=== PATIENT | male | born 1975 ===

== ENCOUNTER 2017-10-07 14:44 | Inpatient (IN) | payer MEDICAID, OTHER ==
[2017-10-07] MEDS ORDERED: Sodium Chloride 0.9% 1,000 ML IV STA ×2 (15:11→18:36)
--- NOTE | 2017-10-07 15:30 | ED PDOC ---
HPI: General Adult Time Seen by Provider: 10/07/17 14:57 Chief Complaint (Nursing): Fever Chief Complaint (Provider): Open Wound History Per: Patient History/Exam Limitations: no limitations Onset/Duration Of Symptoms: Days (x1 week) Current Symptoms Are (Timing): Still Present Additional Complaint(s): With a past medical history of diabetes, who presents to the ED for evaluation of an open wound x1 week. Patient states the wound has been present on his left foot for 1 week. States he saw his Mechanic Welder Truck Driver about it sometime last week and developed a fever on Thursday. Reports today he developed intractable vomiting and has been unable to tolerate food and liquid. Also reports body aches, generalized fatigue, malaise, and loss of appetite. Denies abdominal pain or diarrhea. States he was advised by his Mechanic Welder Truck Driver to present to the ED for a possible severe wound infection. PMD: Dr. Gross Podatrist. Dr. White Past Medical History Reviewed: Historical Data, Nursing Documentation, Vital Signs Vital Signs: Last Vital Signs Temp 99.1 F 10/07/17 17:35 Pulse 119 H 10/07/17 17:35 Resp 21 10/07/17 17:35 BP 82/42 L 10/07/17 17:35 Pulse Ox 97 10/07/17 17:35 - Medical History PMH: Diabetes - Surgical History Other surgeries: Amputation of some toes on right foot - Family History Family History: States: Diabetes - Social History Current smoker - smoking cessation education provided: No Alcohol: Occasional - Home Medications Home Medications: Ambulatory Orders Medication Instructions Recorded Insulin Detemir [Levemir] 12 unit SC HS 10/07/17 MetFORMIN [glucoPHAGE] 1,000 mg PO BID 10/07/17 SITagliptin [Januvia] 100 mg PO DAILY 10/07/17 - Allergies Allergies/Adverse Reactions: Allergies Allergy/AdvReac Type Severity Reaction Status Date / Time No Known Allergies Allergy Verified 10/07/17 14:51 Review of Systems ROS Statement: Except As Marked, All Systems Reviewed And Found Negative Constitutional: Positive for: Fever, Chills, Weakness, Malaise, Other (body aches) Gastrointestinal: Positive for: Vomiting. Negative for: Abdominal Pain, Diarrhea Skin: Positive for: Lesions (left food open wound) Physical Exam - Reviewed Nursing Documentation Reviewed: Yes Vital Signs Reviewed: Yes - Physical Exam Appears: Positive for: Uncomfortable, In Acute Distress Head Exam: Positive for: ATRAUMATIC, NORMOCEPHALIC Skin: Positive for: Warm, Dry Eye Exam: Positive for: EOMI, PERRL ENT: Positive for: Pharynx Is (clear), Other (dry mucus membranes) Neck: Positive for: Painless ROM, Supple Cardiovascular/Chest: Positive for: Tachycardia. Negative for: Murmur Respiratory: Positive for: Normal Breath Sounds. Negative for: Respiratory Distress Gastrointestinal/Abdominal: Positive for: Soft. Negative for: Tenderness Back: Positive for: Normal Inspection. Negative for: Decreased ROM Extremity: Positive for: Other (LEFT foot open wound plantar forefoot yellow dry margin base not visible). Negative for: Deformity, Swelling Lymphatic: Negative for: Adenopathy Neurologic/Psych: Positive for: Alert. Negative for: Motor/Sensory Deficits - Laboratory Results Result Diagrams: 10/07/17 15:30 10/07/17 15:30 - ECG ECG: Positive for: Interpreted By Me ECG Rhythm: Positive for: Sinus Tachycardia O2 Sat by Pulse Oximetry: 99 (RA) Pulse Ox Interpretation: Normal Medical Decision Making Medical Decision Making: Time: 15:08 Initial Impression: Fever, vomiting, and diabetic wound infection. Differentials diagnoses include, but are not limited to sepsis, dehydration, electrolyte abnormality, pancreatitis, gastroenteritis Plan: --Blood type and screen --VBG shock panel --EKG --CMP --Lipase --Magnesium --Phosphorus --ED urine dipstick --CBC w/ differential --Erythrocyte sedimentation rate --PTT --PT --Chest X-Ray 1 view --Sodium Chloride 0.9% 1,000 mls/hr --Toradol 15 mg IVP --Tylenol 975 mg PO --Blood culture --Urine culture --Wound culture --IV Insertion --Glucose, blood, POC --Left foot X-Ray 3 views --Influenza A B --Reevaluation Time: 15:58 Left Foot X-Ray Findings: BONES: No interval acute fracture. Exuberant osseous productive change at the prior posterior superior avulsed calcaneal fracture is noted. Bordering the plantar forefoot level lucency compatible with an open wound here (estimated at the sesamoid level) no periosteal reaction or cortical destruction appreciated. Hammertoe like orientations noted. JOINTS: Normal. SOFT TISSUES: Arterial calcifications. Forefoot level plantar ulcer suggested OTHER FINDINGS: None. IMPRESSION: Plantar ulcer without radiographic osteomyelitis finding suggested Hypertrophic healing of prior posterior superior calcaneal fracture Time: 16:07 Chest X-Ray Findings: LUNGS: Clear. PLEURA: No pneumothorax or pleural fluid seen. CARDIOVASCULAR: Normal. OSSEOUS STRUCTURES: No significant abnormalities. VISUALIZED UPPER ABDOMEN: Normal. OTHER FINDINGS: None. IMPRESSION: No active disease. No acute/significant interval changes. Time: 16:50 Patient has no insurance and Dr. Price is no longer his PMD. Labs demonstrate sepsis without shock or severe sepsis, and DKA. Insulin drip and IV antibiotics ordered and case was discussed with Pay Per Click Strategist, Dr. Garsia, and Hospitalist, Dr. Healy. Discussed findings and plan of care with patient. Scribe Attestation: Documented by Pranay Adams acting as a scribe for Caryn Rosen MD. Scribe Attestation: All medical record entries made by the Scribe were at my direction and personally dictated by me. I have reviewed the chart and agree that the record accurately reflects my personal performance of the history, physical exam, medical decision making, and the department course for this patient. I have also personally directed, reviewed, and agree with the discharge instructions and disposition. Disposition - Patient ED Disposition Is Patient to be Admitted: Yes - Disposition Disposition Time: 16:50 - Pt Status Changed To: Hospital Disposition Of: Inpatient - Admit Certification Admit to Inpatient:: After my assessment, the patient will require hospitalization for at least two midnights. This is because of the severity of symptoms shown, intensity of services needed, and/or the medical risk in this patient being treated as an outpatient.
[2017-10-07 15:40] LABS: BASO % 0.3 % (0.0-2.0); HEMOGLOBIN 11.4 g/dL (12.0-18.0); LYMPH # 0.3 K/uL (1.0-4.3); LYMPH % 1.9 % (20.0-40.0); MEAN CELL VOLUME 85.3 fl (80.0-94.0); MEAN CORPUSCULAR HEMOGLOBIN 27.5 pg (27.0-31.0); MEAN CORPUSCULAR HGB CONC 32.3 g/dL (33.0-37.0); MEAN PLATELET VOLUME 9.7 fl (7.2-11.7); MONO # 0.9 K/uL (0.0-0.8); NEUT # 13.1 K/uL (1.8-7.0); NEUT % 91.8 % (50.0-75.0); PLATELET COUNT 186 K/uL (130-400); RBC 4.13 Mil/uL (4.40-5.90); RED CELL DISTRIBUTION WIDTH 13.4 % (11.5-14.5); WHITE BLOOD COUNT 14.2 K/uL (4.8-10.8)
[2017-10-07] MEDS ORDERED: Piperacillin/Tazobact 3.375 GM in Sodium Chloride 0.9% 50 ML IV ONE (15:50)
[2017-10-07 15:55] LABS: VENOUS BLOOD GAS BASE EXCESS -10.4 mmol/L (0.0-2.0); VENOUS BLOOD GAS PCO2 31 mmHg (40-60); VENOUS BLOOD GAS PO2 55 mm/Hg (30-55); VENOUS BLOOD PH 7.29 (7.32-7.43)
[2017-10-07 16:00] LABS: ALB/GLOB RATIO 1.2 (1.0-2.1); ALT/SGPT 27 U/L (21-72); AST/SGOT 17 U/L (17-59); BLOOD UREA NITROGEN 17 mg/dl (9-20); CALCIUM 9.5 mg/dL (8.4-10.2); GFR AFRICAN-AMERICAN > 60; GFR NON-AFRICAN AMERICAN > 60; LIPASE 41 U/L (23-300); MAGNESIUM 1.4 MG/DL (1.6-2.3)
--- NOTE | 2017-10-07 16:00 | RAD ---
PROCEDURE: Left Foot Radiographs. HISTORY: open wound plantar forefoot COMPARISON: Left foot 06/10/2008 FINDINGS: BONES: No interval acute fracture. Exuberant osseous productive change at the prior posterior superior avulsed calcaneal fracture is noted. Bordering the plantar forefoot level lucency compatible with an open wound here (estimated at the sesamoid level) no periosteal reaction or cortical destruction appreciated. Hammertoe like orientations noted. JOINTS: Normal. SOFT TISSUES: Arterial calcifications. Forefoot level plantar ulcer suggested OTHER FINDINGS: None. IMPRESSION: Plantar ulcer without radiographic osteomyelitis finding suggested Hypertrophic healing of prior posterior superior calcaneal fracture
--- NOTE | 2017-10-07 16:08 | RAD ---
PROCEDURE: CHEST RADIOGRAPH, 1 VIEW HISTORY: sepsis COMPARISON: 03/29/2012 FINDINGS: LUNGS: Clear. PLEURA: No pneumothorax or pleural fluid seen. CARDIOVASCULAR: Normal. OSSEOUS STRUCTURES: No significant abnormalities. VISUALIZED UPPER ABDOMEN: Normal. OTHER FINDINGS: None. IMPRESSION: No active disease. No acute/significant interval changes.
[2017-10-07 16:11] LABS: INR 1.1 (0.9-1.2); PARTIAL THROMBOPLASTIN TIME 27.5 Seconds (25.6-37.1); PROTHROMBIN TIME 11.9 Seconds (9.8-13.1)
[2017-10-07 16:35] LABS: ABG ALLEN TEST YES; ARTERIAL BLOOD GAS HCO3 17.1 mmol/L (21-28); ARTERIAL BLOOD GAS HEMOGLOBIN 11.1 g/dL (11.7-17.4); ARTERIAL BLOOD GAS O2 CONTENT 14.8 ML/dL (15-23); ARTERIAL BLOOD GAS O2 SAT 98.6 % (95-98); ARTERIAL BLOOD GAS PCO2 31 mm/Hg (35-45); ARTERIAL BLOOD GAS PO2 89 mm/Hg (80-100); ARTERIAL BLOOD GAS TCO2 16.3 mmol/L (22-28)
[2017-10-07] MEDS ORDERED: Dextrose 50% SYRINGE Inj (50 ml) IV PRN (16:39)
[2017-10-07] MEDS ORDERED: Glucagon Recombinant 1 mg Inj IM PRN (16:39)
[2017-10-07] MEDS ORDERED: Piperacillin/Tazobact 3.375 gm Inj IVPB ONE (16:43)
--- NOTE | 2017-10-07 17:16 | CP.PCM.HP ---
History of Present Illness - History of Present Illness History of Present Illness: Chief Complaint : weakness, nausea and vomiting, fever HPI: 42 y/o gent with hx of DM type II ( [facility]) Insulin dependent , DM Foot Ulcer , noncompliant with ff up and Insulin due losing his Insuranc in April came bec of generalized weakness, nausea and vomiting and fever . Patient states that he has not taken his Lantus x 2 wks and has not monitored his glucose because he lost his insurance. 2 day ago , he started not feeling well, he felt very weak and started having nausea and vomiting . Denies abdominal pain, no diarrhea. he also started having fever and chills last night. Admits to nasal congestion and occ cough however denies any real respiratory symptoms, no SOB, no CP. He has had a Chronic Left DM foot Ulcer for the past 3 [address] has [address] Dr Davies for Wound Care .. Wound is nontender, has scanty secretion but did not notice any purulent drainage , nor any fould odor. Wound has been the same size for the past few months. Denies any urinary sxs , no abnormal penile discharge, no travel. [employer] for an [employer] , no sick contacts. Present on Admission - Present on Admission Any Indicators Present on Admission: Yes History of Uncontrolled Diabetes: Yes - Notes: Notes:: Left DM ulcer, chronic, sole of foot Review of Systems - Review of Systems All systems: reviewed and no additional remarkable complaints except - Constitutional Constitutional: Chills, Fever, Malaise. absent: Excessive Sweating - EENT Eyes: absent: Change in Vision Ears: absent: Decreased Hearing, Ear Discharge Nose/Mouth/Throat: Nasal Congestion, Nasal Discharge. absent: Sinus Pain, Sinus Pressure, Sore Throat - Cardiovascular Cardiovascular: absent: Chest Pain, Diaphoresis, Dyspnea on Exertion, Edema - Respiratory Respiratory: absent: Cough, Dyspnea, Dyspnea on Exertion, Wheezing, Chest Congestion, Excessive Mucous Production - Gastrointestinal Gastrointestinal: Nausea, Vomiting. absent: Abdominal Pain - Genitourinary Genitourinary: absent: Dysuria, Hematuria - Musculoskeletal Musculoskeletal: Muscle Weakness. absent: Arthralgias, Myalgias - Integumentary Integumentary: Skin Ulcer - Neurological Neurological: absent: Focal Weakness, Headaches, Loss of Vision - Psychiatric Psychiatric: absent: Anxiety, Suicidal Ideation - Endocrine Endocrine: absent: Polydipsia, Polyphagia, Polyuria - Hematologic/Lymphatic Hematologic: absent: Easy Bleeding, Easy Bruising Past Patient History - Infectious Disease Hx of Infectious Diseases: None - Tetanus Immunizations Tetanus Immunization: Unknown - Past Medical History & Family History Past Medical History?: Yes Past Family History: Reviewed and not pertinent - Past Social History Smoking Status: Light Smoker < 10 Cigarettes Daily Chewing Tobacco Use: No Cigar Use: No Alcohol: Occasional Drugs: Denies Home Situation {Lives}: With Family - CARDIAC Hx Cardiac Disorders: No - PULMONARY Hx Respiratory Disorders: No - ENDOCRINE/METABOLIC Hx Endocrine Disorders: Yes Hx Diabetes Mellitus Type 2: Yes - INTEGUMENTARY Other/Comment: Foot ulcer x 3 mos - MUSCULOSKELETAL/RHEUMATOLOGICAL Hx Musculoskeletal Disorders: No - GASTROINTESTINAL Hx Gastrointestinal Disorders: No - PSYCHIATRIC Hx Psychophysiologic Disorder: No Hx Substance Use: No - SURGICAL HISTORY Hx Surgeries: Yes Other/Comment: right foot 3rd and 4th toe amputation - ANESTHESIA Hx Anesthesia: Yes Hx Anesthesia Reactions: No Meds Allergies/Adverse Reactions: Allergies Allergy/AdvReac Type Severity Reaction Status Date / Time No Known Allergies Allergy Verified 10/07/17 14:51 Physical Exam - Constitutional Appears: Non-toxic, No Acute Distress - Head Exam Head Exam: NORMAL INSPECTION, NORMOCEPHALIC - Eye Exam Eye Exam: EOMI, Normal appearance, PERRL Pupil Exam: NORMAL ACCOMODATION - ENT Exam ENT Exam: Mucous Membranes Moist, Normal External Ear Exam - Neck Exam Neck exam: Positive for: Full Rom. Negative for: Meningismus - Respiratory Exam Respiratory Exam: NORMAL BREATHING PATTERN. absent: Rales, Rhonchi, Wheezes, Respiratory Distress - Cardiovascular Exam Cardiovascular Exam: Tachycardia, REGULAR RHYTHM, +S1, +S2 - GI/Abdominal Exam GI & Abdominal Exam: Normal Bowel Sounds, Soft. absent: Tenderness - Extremities Exam Additional comments: left sole of foot ulcer - scanty discahrge, non fould - Back Exam Back exam: FULL ROM. absent: CVA tenderness (L), CVA tenderness (R), vertebral tenderness - Neurological Exam Neurological exam: Alert, CN II-XII Intact, Oriented x3, Reflexes Normal - Psychiatric Exam Psychiatric exam: Normal Affect, Normal Mood - Skin Skin Exam: Dry, Normal Color, Warm Results - Vital Signs Recent Vital Signs: Last Vital Signs Temp 102.7 F H 10/07/17 15:54 Pulse 141 H 10/07/17 14:51 Resp 18 10/07/17 14:51 BP 95/54 L 10/07/17 14:51 Pulse Ox 99 10/07/17 16:35 - Labs Result Diagrams: 10/07/17 15:30 10/07/17 15:30 Labs: Laboratory Results - last 24 hr 10/07/17 10/07/17 10/07/17 15:09 15:30 15:30 WBC 14.2 H RBC 4.13 L Hgb 11.4 L Hct 35.3 MCV 85.3 MCH 27.5 MCHC 32.3 L RDW 13.4 Plt Count 186 MPV 9.7 Neut % (Auto) 91.8 H Lymph % (Auto) 1.9 L Mccormick % (Auto) 6.0 Eos % (Auto) 0.0 Baso % (Auto) 0.3 Neut # (Auto) 13.1 H Lymph # (Auto) 0.3 L Mccormick # (Auto) 0.9 H Eos # (Auto) 0.0 Baso # (Auto) 0.0 PT INR APTT pCO2 pO2 HCO3 ABG pH ABG Total CO2 ABG O2 Saturation ABG O2 Content ABG Base Excess ABG Hemoglobin ABG Carboxyhemoglobin POC ABG HHb (Measured) ABG Methemoglobin ABG O2 Capacity Rony Test VBG pH VBG pCO2 VBG HCO3 VBG Total CO2 VBG O2 Sat (Calc) VBG Base Excess VBG Potassium A-a O2 Difference Hgb O2 Saturation Glucose Lactate FiO2 Sodium 133 Potassium 4.1 Chloride 95 L Carbon Dioxide 13 L Anion Gap 29 H BUN 17 Creatinine 1.2 Est GFR ( Amer) > 60 Est GFR (Non-Af Amer) > 60 POC Glucose (mg/dL) 301 H Random Glucose 372 H Calcium 9.5 Phosphorus 2.5 Magnesium 1.4 L Total Bilirubin 0.6 AST 17 ALT 27 Alkaline Phosphatase 93 Total Protein 7.2 Albumin 4.0 Globulin 3.2 Albumin/Globulin Ratio 1.2 Lipase 41 Venous Blood Potassium Influenza Typ A,B (EIA) Blood Type Antibody Screen BBK History Checked 10/07/17 10/07/17 10/07/17 15:30 15:30 15:30 WBC RBC Hgb Hct MCV MCH MCHC RDW Plt Count MPV Neut % (Auto) Lymph % (Auto) Mccormick % (Auto) Eos % (Auto) Baso % (Auto) Neut # (Auto) Lymph # (Auto) Mccormick # (Auto) Eos # (Auto) Baso # (Auto) PT 11.9 INR 1.1 APTT 27.5 pCO2 pO2 HCO3 ABG pH ABG Total CO2 ABG O2 Saturation ABG O2 Content ABG Base Excess ABG Hemoglobin ABG Carboxyhemoglobin POC ABG HHb (Measured) ABG Methemoglobin ABG O2 Capacity Rony Test VBG pH VBG pCO2 VBG HCO3 VBG Total CO2 VBG O2 Sat (Calc) VBG Base Excess VBG Potassium A-a O2 Difference Hgb O2 Saturation Glucose Lactate FiO2 Sodium Potassium Chloride Carbon Dioxide Anion Gap BUN Creatinine Est GFR ( Amer) Est GFR (Non-Af Amer) POC Glucose (mg/dL) Random Glucose Calcium Phosphorus Magnesium Total Bilirubin AST ALT Alkaline Phosphatase Total Protein Albumin Globulin Albumin/Globulin Ratio Lipase Venous Blood Potassium Influenza Typ A,B (EIA) Negative for flu a/b Blood Type O POSITIVE Antibody Screen Negative BBK History Checked Patient has bt 10/07/17 10/07/17 15:50 16:28 WBC RBC Hgb Hct MCV MCH MCHC RDW Plt Count MPV Neut % (Auto) Lymph % (Auto) Mccormick % (Auto) Eos % (Auto) Baso % (Auto) Neut # (Auto) Lymph # (Auto) Mccormick # (Auto) Eos # (Auto) Baso # (Auto) PT INR APTT pCO2 31 L pO2 55 89 HCO3 17.1 L ABG pH 7.30 L ABG Total CO2 16.3 L ABG O2 Saturation 98.6 H ABG O2 Content 14.8 L ABG Base Excess -10.0 L ABG Hemoglobin 11.1 L ABG Carboxyhemoglobin 1.2 POC ABG HHb (Measured) 1.3 ABG Methemoglobin 3.5 H ABG O2 Capacity 15.0 L Rony Test Yes VBG pH 7.29 L VBG pCO2 31 L VBG HCO3 16.5 VBG Total CO2 15.9 L VBG O2 Sat (Calc) 95.2 H VBG Base Excess -10.4 L VBG Potassium 4.1 A-a O2 Difference 22.0 Hgb O2 Saturation 94.0 L Glucose 380 H Lactate 1.1 FiO2 21.0 21.0 Sodium 129.0 L Potassium Chloride 93.0 L Carbon Dioxide Anion Gap BUN Creatinine Est GFR ( Amer) Est GFR (Non-Af Amer) POC Glucose (mg/dL) Random Glucose Calcium Phosphorus Magnesium Total Bilirubin AST ALT Alkaline Phosphatase Total Protein Albumin Globulin Albumin/Globulin Ratio Lipase Venous Blood Potassium 4.1 Influenza Typ A,B (EIA) Blood Type Antibody Screen BBK History Checked - EKG Data EKG Interpreted by: Myself EKG shows normal: Sinus rhythm Rate: Tachycardia Assessment & Plan (1) DKA (diabetic ketoacidosis) Status: Acute (2) Sepsis Status: Acute (3) DM type 2 causing leg or foot ulcer Status: Chronic (4) Hypomagnesemia Status: Acute (5) DVT prophylaxis Assessment and Plan: (1) DKA (diabetic ketoacidosis) Status: Acute admit to ICU IVF hydration - 4 liters NS ordered so far then NS 250 ml/hour q1 Accucheck rpt BMP < Phos < Mag stat then q 3-4 hours Replace electrolytes Insulin drip Endo consult :Dr Cee (2) Sepsis ? sec to Left Foot Ulcer r/o other infections Status: Acute Pt has no other sxs except for the foot ulcer has sl nasal discharge and occ cough but no significant respiratory sxs CXR : Neg Influenza : neg Blood c/s, Urine c/s : Wound c/s Lactic acid normal Check Procalcitponin ID consult : Dr arvin Bush IV Vanco and Zosyn empirically (3) DM type 2 causing leg or foot ulcer Status: Chronic Podiatry conult IV vanco and Zosyn Foot Xray : to r/o Osteo , pt may need MRI Wound c/s Tetanus toxoid (4) Hypomagnesemia Status: Acute Mag Sulfate 2 grams now (5) DVT prophylaxis Status: Acute Lovenox Status: Acute Decision To Admit - Pt Status Changed To: Hospital Disposition Of: Inpatient - Admit Certification Admit to Inpatient:: After my assessment, the patient will require hospitalization for at least two midnights. This is because of the severity of symptoms shown, intensity of services needed, and/or the medical risk in this patient being treated as an outpatient. - . Bed Request Type: Telemetry Admitting Physician: Vivian Healy
[2017-10-07] MEDS ORDERED: Sodium Chloride 0.9% 1,000 ML IV SCH ×4 (17:30→18:44)
[2017-10-07 17:31] LABS: ANISOCYTOSIS SLIGHT; BANDS 4 % (0-2); BASOPHIL 1 % (0-2); HYPOCHROMIC SLIGHT; LYMPHOCYTE 6 % (20-50); MICROCYTOSIS SLIGHT; MONOCYTE 9 % (0-10); NEUTROPHIL 80 % (42-75); PLATELET ESTIMATE NORMAL (NORMAL); TOTAL CELLS COUNTED 100
[2017-10-07 17:43] LABS: URINE BILIRUBIN NEGATIVE (NEGATIVE); URINE BLOOD SMALL (NEGATIVE); URINE CLARITY CLEAR (Clear); URINE COLOR YELLOW (YELLOW); URINE GLUCOSE (UA) >=500 mg/dL (Normal); URINE LEUKOCYTE ESTERASE NEG Leu/uL (Negative); URINE NITRATE NEGATIVE (NEGATIVE); URINE PROTEIN 100 mg/dL (NEGATIVE); URINE UROBILINOGEN 0.2-1.0 mg/dL (0.2-1.0)
--- NOTE | 2017-10-07 17:52 | CP.PCM.CON ---
History of Present Illness - History of Present Illness History of Present Illness: Podiatry Consult Note- Dr. Davies 42 y.o male with PMH of DM seen and evaluated in the ED for left foot ulceration. Patient is known to Dr. Davies and has been seeing him weekly in wound care for continue treatment of left foot ulceration. Patient reports that it started as a blister and turned into a ulcer. He has had this ulceration for over 3 months. Patient reports he has been changing his dressings daily with [facility] as instructed by Dr. Davies. He reports the wound looks the same with no changes in size or amount of drainage. He reports that 2 days ago he felt nausea, chills, feverish, and decrease in appetite. He reported vomiting water about 5 times earlier today. 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, L achilles tendon repair secondary to achilles tendon rupture SH: smokes 1/2 pack a day for over 10 years; rarely drinks EtOH, denies illicit drug use ALL: NKDA MEDS: metformin, januvia FH: mother- HTN, father- DM Past Patient History - Past Social History Alcohol: Occasional - CARDIAC Hx Cardiac Disorders: No - PULMONARY Hx Respiratory Disorders: No - ENDOCRINE/METABOLIC Hx Endocrine Disorders: Yes Hx Diabetes Mellitus Type 2: Yes - MUSCULOSKELETAL/RHEUMATOLOGICAL Hx Musculoskeletal Disorders: No - GASTROINTESTINAL Hx Gastrointestinal Disorders: No - PSYCHIATRIC Hx Psychophysiologic Disorder: No Hx Substance Use: No - SURGICAL HISTORY Hx Surgeries: Yes Other/Comment: right foot toe amputation - ANESTHESIA Hx Anesthesia: Yes Hx Anesthesia Reactions: No Meds Allergies/Adverse Reactions: Allergies Allergy/AdvReac Type Severity Reaction Status Date / Time No Known Allergies Allergy Verified 10/07/17 14:51 - Medications Medications: Current Medications Dextrose (Dextrose 50% Inj) 0 ml IV STAT PRN; Protocol PRN Reason: Hypoglycemia Protocol Dextrose (Glutose 15) 0 gm PO ONCE PRN; Protocol PRN Reason: Hypoglycemia Protocol Glucagon (Glucagen Diagnostic Kit) 0 mg IM STAT PRN; Protocol PRN Reason: Hypoglycemia Protocol Insulin Human Regular 100 (units/ Sodium Chloride) 101 mls @ 6.06 mls/hr IV .[id number] TASHA; 6 UNITS/HR PRN Reason: Protocol Last Admin: 10/07/17 17:25 Dose: 6.06 mls/hr Sodium Chloride (Sodium Chloride 0.9%) 1,000 mls @ 150 mls/hr IV .[id number] [facility] Stop: 10/08/17 17:17 Last Admin: 10/07/17 17:33 Dose: 150 mls/hr Vancomycin HCl 1 gm/ Sodium (Chloride) 250 mls @ 166.667 mls/hr IVPB Q12 TASHA PRN Reason: Protocol Piperacillin Sod/Tazobactam (Sod 3.375 gm/ Sodium Chloride) 100 mls @ 100 mls/ hr IVPB Q6 TASHA PRN Reason: Protocol Magnesium Sulfate (Magnesium Sulfate 2 Gm/50 Ml Water) 2 gm in 50 mls @ 50 mls/ hr IVPB ONCE ONE PRN Reason: 2 GM/HR Stop: 10/07/17 18:59 Physical Exam - Constitutional Appears: Well, Non-toxic, No Acute Distress - Extremities Exam Extremities exam: Negative for: calf tenderness Additional comments: Vasc: DP and PT faintly palpable, temperature gradient warm to cool, no edema noted, CFT delayed to digits Ortho: tenderness with palpation to the ulceration site, MM is 4/5 in all four compartments in dorsiflexion, plantarflexion, inversion and eversion Neuro: gross and protective sensation diminished Derm: ulceration noted to left foot a sub met 3 measuring approximately 1.5 x 1 cm x .4 cm. Ulceration wound base is mixture of granular and fibrotic tissue with intact hyperkeratotic rim, circumferential undermining noted, Periwound is hyperkeratotic and callused; mild serous/synovial drainage noted; no tunneling or tracking appreciated; no purulence noted; no malodor, no fluctanance noted. - Neurological Exam Neurological exam: Alert, Oriented x3 - Psychiatric Exam Psychiatric exam: Normal Affect, Normal Mood Results - Vital Signs Recent Vital Signs: Last Vital Signs Temp 99.1 F 10/07/17 17:35 Pulse 119 H 10/07/17 17:35 Resp 21 10/07/17 17:35 BP 82/42 L 10/07/17 17:35 Pulse Ox 97 10/07/17 17:35 - Labs Result Diagrams: 10/07/17 15:30 10/07/17 20:54 Labs: Laboratory Results - last 24 hr 10/07/17 10/07/17 10/07/17 15:09 15:30 15:30 WBC 14.2 H RBC 4.13 L Hgb 11.4 L Hct 35.3 MCV 85.3 MCH 27.5 MCHC 32.3 L RDW 13.4 Plt Count 186 MPV 9.7 Neut % (Auto) 91.8 H Lymph % (Auto) 1.9 L [place] % (Auto) 6.0 Eos % (Auto) 0.0 Baso % (Auto) 0.3 Neut # (Auto) 13.1 H Lymph # (Auto) 0.3 L [place] # (Auto) 0.9 H Eos # (Auto) 0.0 Baso # (Auto) 0.0 Neutrophils % (Manual) 80 H Band Neutrophils % 4 H Lymphocytes % (Manual) 6 L Monocytes % (Manual) 9 Basophils % (Manual) 1 Platelet Estimate Normal Hypochromasia (manual) Slight Anisocytosis (manual) Slight Microcytosis (manual) Slight PT INR APTT pCO2 pO2 HCO3 ABG pH ABG Total CO2 ABG O2 Saturation ABG O2 Content ABG Base Excess ABG Hemoglobin ABG Carboxyhemoglobin POC ABG HHb (Measured) ABG Methemoglobin ABG O2 Capacity Rony Test VBG pH VBG pCO2 VBG HCO3 VBG Total CO2 VBG O2 Sat (Calc) VBG Base Excess VBG Potassium A-a O2 Difference Hgb O2 Saturation Glucose Lactate FiO2 Sodium 133 Potassium 4.1 Chloride 95 L Carbon Dioxide 13 L Anion Gap 29 H BUN 17 Creatinine 1.2 Est GFR ( Amer) > 60 Est GFR (Non-Af Amer) > 60 POC Glucose (mg/dL) 301 H Random Glucose 372 H Calcium 9.5 Phosphorus 2.5 Magnesium 1.4 L Total Bilirubin 0.6 AST 17 ALT 27 Alkaline Phosphatase 93 Total Protein 7.2 Albumin 4.0 Globulin 3.2 Albumin/Globulin Ratio 1.2 Lipase 41 Venous Blood Potassium Influenza Typ A,B (EIA) Blood Type Antibody Screen BBK History Checked 10/07/17 10/07/17 10/07/17 15:30 15:30 15:30 WBC RBC Hgb Hct MCV MCH MCHC RDW Plt Count MPV Neut % (Auto) Lymph % (Auto) [place] % (Auto) Eos % (Auto) Baso % (Auto) Neut # (Auto) Lymph # (Auto) [place] # (Auto) Eos # (Auto) Baso # (Auto) Neutrophils % (Manual) Band Neutrophils % Lymphocytes % (Manual) Monocytes % (Manual) Basophils % (Manual) Platelet Estimate Hypochromasia (manual) Anisocytosis (manual) Microcytosis (manual) PT 11.9 INR 1.1 APTT 27.5 pCO2 pO2 HCO3 ABG pH ABG Total CO2 ABG O2 Saturation ABG O2 Content ABG Base Excess ABG Hemoglobin ABG Carboxyhemoglobin POC ABG HHb (Measured) ABG Methemoglobin ABG O2 Capacity Rony Test VBG pH VBG pCO2 VBG HCO3 VBG Total CO2 VBG O2 Sat (Calc) VBG Base Excess VBG Potassium A-a O2 Difference Hgb O2 Saturation Glucose Lactate FiO2 Sodium Potassium Chloride Carbon Dioxide Anion Gap BUN Creatinine Est GFR ( Amer) Est GFR (Non-Af Amer) POC Glucose (mg/dL) Random Glucose Calcium Phosphorus Magnesium Total Bilirubin AST ALT Alkaline Phosphatase Total Protein Albumin Globulin Albumin/Globulin Ratio Lipase Venous Blood Potassium Influenza Typ A,B (EIA) Negative for flu a/b Blood Type O POSITIVE Antibody Screen Negative BBK History Checked Patient has bt 10/07/17 10/07/17 10/07/17 15:50 16:28 17:26 WBC RBC Hgb Hct MCV MCH MCHC RDW Plt Count MPV Neut % (Auto) Lymph % (Auto) [place] % (Auto) Eos % (Auto) Baso % (Auto) Neut # (Auto) Lymph # (Auto) [place] # (Auto) Eos # (Auto) Baso # (Auto) Neutrophils % (Manual) Band Neutrophils % Lymphocytes % (Manual) Monocytes % (Manual) Basophils % (Manual) Platelet Estimate Hypochromasia (manual) Anisocytosis (manual) Microcytosis (manual) PT INR APTT pCO2 31 L pO2 55 89 HCO3 17.1 L ABG pH 7.30 L ABG Total CO2 16.3 L ABG O2 Saturation 98.6 H ABG O2 Content 14.8 L ABG Base Excess -10.0 L ABG Hemoglobin 11.1 L ABG Carboxyhemoglobin 1.2 POC ABG HHb (Measured) 1.3 ABG Methemoglobin 3.5 H ABG O2 Capacity 15.0 L Rony Test Yes VBG pH 7.29 L VBG pCO2 31 L VBG HCO3 16.5 VBG Total CO2 15.9 L VBG O2 Sat (Calc) 95.2 H VBG Base Excess -10.4 L VBG Potassium 4.1 A-a O2 Difference 22.0 Hgb O2 Saturation 94.0 L Glucose 380 H Lactate 1.1 FiO2 21.0 21.0 Sodium 129.0 L Potassium Chloride 93.0 L Carbon Dioxide Anion Gap BUN Creatinine Est GFR ( Amer) Est GFR (Non-Af Amer) POC Glucose (mg/dL) 318 H Random Glucose Calcium Phosphorus Magnesium Total Bilirubin AST ALT Alkaline Phosphatase Total Protein Albumin Globulin Albumin/Globulin Ratio Lipase Venous Blood Potassium 4.1 Influenza Typ A,B (EIA) Blood Type Antibody Screen BBK History Checked Assessment & Plan - Assessment and Plan (Free Text) Assessment: 42 y.o male with PMH of DM with left foot ulceration. Plan: Patient examined and evaluated Discussed plan in detail with attending Dr. Davies Labs, vitals, chart reviewed (WBC=14.2) X-rays results: IMPRESSION: Plantar ulcer without radiographic osteomyelitis finding suggested. Hypertrophic healing of prior posterior superior calcaneal fractur Wound culture taken in the ED; pending results C/w Vanco and Zosyn per ID Ulceration cleansed with saline solution, application of bacitracin, dsd, and kerlix applied Ordered Bacitracin; to be applied with dressing changes No surgical intervention at this time Thank you for the consult. Podiatry will continue to follow while patient is on floors - Date & Time Date: 10/07/17 Time: 16:00
[2017-10-07] MEDS ORDERED: Magnesium Sulfate 2 gm/50 ml 2 GM/50 ML BAG IVPB ONE (18:00)
[2017-10-07] MEDS ORDERED: Tetanus/Diphtheria Toxoids 0.5 ml Syringe IM ONE (18:39)
[2017-10-07] MEDS ORDERED: Potassium CL 10 MEQ/50 ML 50 ML IVPB ONE (18:52)
--- NOTE | 2017-10-07 19:24 | CP.CCUPN ---
CCU Subjective - Physician Review Subjective (Free Text): ICU Admission from ER for DKA and left foot infection: 42M presents today for fever eval ( 102.7F) over the past 5 days, sent from Podiatrists office regarding left foot infection. Denies any chills, diaphoresis, chest discomfort, SOB, N/V now, abdominal pain. 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 Other vitals and I/O's reviewed. Meds: on triple DM therapy with Januvia, Metformin, and Levemir. Allergies: NKDA ROS: No other pertinent negs or positives on + system review. PMSFH: All other Nursing and physician documentation reviewed to date; no new pertinent info noted relevant to current medical problems. IMPRESSION / MAJOR PROBLEMS NOW: 1. DKA 2 medication non-compliance and left foot infection, no Osteomyelitis on initial xrays 2. Dehydration / Hypovolemia, r/o bacteremia 3. Chronic Disease Anemia PLAN: 1. IVF boluses to approx 4-5 liters now, then maintenance hydration and IV insulin drip until anion gap normalizes. Serial lytes, Mg / Phos levels. Replete Mg now. 2. Pancultures 3. Empiric abx coverage; initial Lactate normal, check repeat now as he is hypotensive. 4. Podiatry / Orthopedic eval. CCU Objective - Vital Signs / Intake & Output Vital Signs (Last 4 hours): Vital Signs Temp Pulse Resp BP Pulse Ox 10/07/17 19:19 109 H 97/57 L 10/07/17 18:57 106 H 88/50 L 10/07/17 18:40 99.1 F 102 H 21 78/42 L 100 10/07/17 18:03 99 10/07/17 17:35 99.1 F 119 H 21 82/42 L 97 10/07/17 15:54 102.7 F H Intake and Output (Last 8hrs): Intake & Output 10/07/17 10/07/17 10/07/17 06:59 14:59 22:59 Intake Total 4350 Output Total 650 Balance 3700 Weight 145 lb Intake: IV 4350 Oral 0 Output: Urine 650 - Physical Exam Head: Positive for: Normocephalic Pupils: Positive for: PERRL Extroacular Muscles: Positive for: EOMI Conjunctiva: Positive for: Normal. Negative for: Icteric Mouth: Positive for: Dry Neck: Negative for: Meningeal Signs, JVD Respiratory/Chest: Positive for: Clear to Auscultation Cardiovascular: Positive for: Regular Rate and Rhythm. Negative for: Murmurs, Rub Abdomen: Positive for: Normal Bowel Sounds. 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 Left distal plantar surface superfical ulcer, no discharge, no crepitus. ). Negative for: CALF TENDERNESS, Cyanosis Skin: Positive for: Warm, Dry. Negative for: Rashes Psychiatric: Positive for: Alert, Oriented x 3 - Medications Active Medications: Active Medications Generic Name Dose Route Start Last Admin Trade Name Freq PRN Reason Stop Dose Admin Dextrose 0 ml 10/07/17 16:39 Dextrose 50% Inj IV STAT PRN Hypoglycemia Protocol Protocol Dextrose 0 gm 10/07/17 16:39 Glutose 15 PO ONCE PRN Hypoglycemia Protocol Protocol Enoxaparin Sodium 40 mg 10/08/17 09:00 Lovenox SC DAILY TASHA Protocol Glucagon 0 mg 10/07/17 16:39 Glucagen Diagnostic Kit IM STAT PRN Hypoglycemia Protocol Protocol Insulin Human Regular 100 101 mls @ 6.06 mls/hr 10/07/17 16:45 10/07/17 17:25 units/ Sodium Chloride IV 6.06 mls/hr .[id number] TASHA Administration Protocol 6 UNITS/HR Vancomycin HCl 1 gm/ Sodium 250 mls @ 166.667 mls/hr 10/07/17 21:00 Chloride IVPB Q12 TASHA Protocol Piperacillin Sod/Tazobactam 50 mls @ 50 mls/hr 10/07/17 22:00 Sod 3.375 gm/ Sodium Chloride IVPB Q6 TASHA Protocol Sodium Chloride 1,000 mls @ 1,000 mls/hr 10/07/17 18:15 10/07/17 18:43 Sodium Chloride 0.9% IV 10/08/17 18:04 1,000 mls/hr .Q1H TASHA Administration Sodium Chloride 1,000 mls @ 250 mls/hr 10/07/17 18:44 Sodium Chloride 0.9% IV 10/08/17 17:17 .Q4H TASHA Potassium Chloride 50 mls @ 50 mls/hr 10/07/17 18:52 Potassium Cl 10meq/50ml Sterile Water IVPB 10/07/17 19:51 ONCE ONE Dextrose/Sodium Chloride 500 mls @ 50 mls/hr 10/07/17 19:00 Dextrose 5%-0.45% Ns 500 Ml IV 10/08/17 18:53 .Q10H TASHA - Patient Studies Lab Studies: Lab Studies 10/07/17 10/07/17 10/07/17 Range/Units 17:30 17:26 16:28 WBC (4.8-10.8) K/uL RBC (4.40-5.90) Mil/uL Hgb (12.0-18.0) g/dL Hct (35.0-51.0) % MCV (80.0-94.0) fl MCH (27.0-31.0) pg MCHC (33.0-37.0) g/dL RDW (11.5-14.5) % Plt Count (130-400) K/uL MPV (7.2-11.7) fl Neut % (Auto) (50.0-75.0) % Lymph % (Auto) (20.0-40.0) % [place] % (Auto) (0.0-10.0) % Eos % (Auto) (0.0-4.0) % Baso % (Auto) (0.0-2.0) % Neut # (Auto) (1.8-7.0) K/uL Lymph # (Auto) (1.0-4.3) K/uL [place] # (Auto) (0.0-0.8) K/uL Eos # (Auto) (0.0-0.7) K/uL Baso # (Auto) (0.0-0.2) K/uL Neutrophils % (Manual) (42-75) % Band Neutrophils % (0-2) % Lymphocytes % (Manual) (20-50) % Monocytes % (Manual) (0-10) % Basophils % (Manual) (0-2) % Platelet Estimate (NORMAL) Hypochromasia (manual) Anisocytosis (manual) Microcytosis (manual) ESR (0-15) mm/hr PT (9.8-13.1) Seconds INR (0.9-1.2) APTT (25.6-37.1) Seconds pCO2 31 L (35-45) mm/Hg pO2 89 (30-55) mm/Hg HCO3 17.1 L (21-28) mmol/L ABG pH 7.30 L (7.35-7.45) ABG Total CO2 16.3 L (22-28) mmol/L ABG O2 Saturation 98.6 H (95-98) % ABG O2 Content 14.8 L (15-23) ML/dL ABG Base Excess -10.0 L (-2.0-3.0) mmol/L ABG Hemoglobin 11.1 L (11.7-17.4) g/dL ABG Carboxyhemoglobin 1.2 (0.5-1.5) % POC ABG HHb (Measured) 1.3 (0.0-5.0) % ABG Methemoglobin 3.5 H (0.0-3.0) % ABG O2 Capacity 15.0 L (16-24) mL/dL Rony Test Yes VBG pH (7.32-7.43) VBG pCO2 (40-60) mmHg VBG HCO3 mmol/L VBG Total CO2 (22-28) mmol/L VBG O2 Sat (Calc) (40-65) % VBG Base Excess (0.0-2.0) mmol/L VBG Potassium (3.6-5.2) mmol/L A-a O2 Difference 22.0 mm/Hg Hgb O2 Saturation 94.0 L (95.0-98.0) % Glucose (75-110) mg/dL Lactate (0.7-2.1) mmol/L FiO2 21.0 % Sodium (132-148) mmol/l Potassium (3.6-5.0) MMOL/L Chloride (98-107) mmol/L Carbon Dioxide (22-30) mmol/L Anion Gap (10-20) BUN (9-20) mg/dl Creatinine (0.8-1.5) mg/dl Est GFR ( Amer) Est GFR (Non-Af Amer) POC Glucose (mg/dL) 318 H (65-110) mg/dL Random Glucose (75-110) mg/dL Calcium (8.4-10.2) mg/dL Phosphorus (2.5-4.5) mg/dl Magnesium (1.6-2.3) MG/DL Total Bilirubin (0.2-1.3) mg/dl AST (17-59) U/L ALT (21-72) U/L Alkaline Phosphatase (38-126) U/L Total Protein (6.3-8.2) G/DL Albumin (3.5-5.0) g/dL Globulin (2.2-3.9) gm/dL Albumin/Globulin Ratio (1.0-2.1) Lipase (23-300) U/L Venous Blood Potassium (3.6-5.2) mmol/L Urine Color Yellow (YELLOW) Urine Clarity Clear (Clear) Urine pH 6.0 (5.0-8.0) Ur Specific [place] 1.020 (1.003-1.030) Urine Protein 100 (NEGATIVE) mg/dL Urine Glucose (UA) >=500 (Normal) mg/dL Urine Ketones 80 (NEGATIVE) mg/dL Urine Blood Small (NEGATIVE) Urine Nitrate Negative (NEGATIVE) Urine Bilirubin Negative (NEGATIVE) Urine Urobilinogen 0.2-1.0 (0.2-1.0) mg/dL Ur Leukocyte Esterase Neg (Negative) Sj/uL Urine RBC (Auto) 6 H (0-3) /hpf Urine Microscopic WBC < 1 (0-5) /hpf Influenza Typ A,B (EIA) (NEGATIVE) Blood Type Antibody Screen BBK History Checked 10/07/17 10/07/17 10/07/17 Range/Units 15:50 15:30 15:30 WBC (4.8-10.8) K/uL RBC (4.40-5.90) Mil/uL Hgb (12.0-18.0) g/dL Hct (35.0-51.0) % MCV (80.0-94.0) fl MCH (27.0-31.0) pg MCHC (33.0-37.0) g/dL RDW (11.5-14.5) % Plt Count (130-400) K/uL MPV (7.2-11.7) fl Neut % (Auto) (50.0-75.0) % Lymph % (Auto) (20.0-40.0) % [place] % (Auto) (0.0-10.0) % Eos % (Auto) (0.0-4.0) % Baso % (Auto) (0.0-2.0) % Neut # (Auto) (1.8-7.0) K/uL Lymph # (Auto) (1.0-4.3) K/uL [place] # (Auto) (0.0-0.8) K/uL Eos # (Auto) (0.0-0.7) K/uL Baso # (Auto) (0.0-0.2) K/uL Neutrophils % (Manual) (42-75) % Band Neutrophils % (0-2) % Lymphocytes % (Manual) (20-50) % Monocytes % (Manual) (0-10) % Basophils % (Manual) (0-2) % Platelet Estimate (NORMAL) Hypochromasia (manual) Anisocytosis (manual) Microcytosis (manual) ESR (0-15) mm/hr PT (9.8-13.1) Seconds INR (0.9-1.2) APTT (25.6-37.1) Seconds pCO2 (35-45) mm/Hg pO2 55 (30-55) mm/Hg HCO3 (21-28) mmol/L ABG pH (7.35-7.45) ABG Total CO2 (22-28) mmol/L ABG O2 Saturation (95-98) % ABG O2 Content (15-23) ML/dL ABG Base Excess (-2.0-3.0) mmol/L ABG Hemoglobin (11.7-17.4) g/dL ABG Carboxyhemoglobin (0.5-1.5) % POC ABG HHb (Measured) (0.0-5.0) % ABG Methemoglobin (0.0-3.0) % ABG O2 Capacity (16-24) mL/dL Rony Test VBG pH 7.29 L (7.32-7.43) VBG pCO2 31 L (40-60) mmHg VBG HCO3 16.5 mmol/L VBG Total CO2 15.9 L (22-28) mmol/L VBG O2 Sat (Calc) 95.2 H (40-65) % VBG Base Excess -10.4 L (0.0-2.0) mmol/L VBG Potassium 4.1 (3.6-5.2) mmol/L A-a O2 Difference mm/Hg Hgb O2 Saturation (95.0-98.0) % Glucose 380 H (75-110) mg/dL Lactate 1.1 (0.7-2.1) mmol/L FiO2 21.0 % Sodium 129.0 L (132-148) mmol/l Potassium (3.6-5.0) MMOL/L Chloride 93.0 L (98-107) mmol/L Carbon Dioxide (22-30) mmol/L Anion Gap (10-20) BUN (9-20) mg/dl Creatinine (0.8-1.5) mg/dl Est GFR ( Amer) Est GFR (Non-Af Amer) POC Glucose (mg/dL) (65-110) mg/dL Random Glucose (75-110) mg/dL Calcium (8.4-10.2) mg/dL Phosphorus (2.5-4.5) mg/dl Magnesium (1.6-2.3) MG/DL Total Bilirubin (0.2-1.3) mg/dl AST (17-59) U/L ALT (21-72) U/L Alkaline Phosphatase (38-126) U/L Total Protein (6.3-8.2) G/DL Albumin (3.5-5.0) g/dL Globulin (2.2-3.9) gm/dL Albumin/Globulin Ratio (1.0-2.1) Lipase (23-300) U/L Venous Blood Potassium 4.1 (3.6-5.2) mmol/L Urine Color (YELLOW) Urine Clarity (Clear) Urine pH (5.0-8.0) Ur Specific [place] (1.003-1.030) Urine Protein (NEGATIVE) mg/dL Urine Glucose (UA) (Normal) mg/dL Urine Ketones (NEGATIVE) mg/dL Urine Blood (NEGATIVE) Urine Nitrate (NEGATIVE) Urine Bilirubin (NEGATIVE) Urine Urobilinogen (0.2-1.0) mg/dL Ur Leukocyte Esterase (Negative) Sj/uL Urine RBC (Auto) (0-3) /hpf Urine Microscopic WBC (0-5) /hpf Influenza Typ A,B (EIA) Negative for flu a/b (NEGATIVE) Blood Type O POSITIVE Antibody Screen Negative BBK History Checked Patient has bt 01/31/18 01/31/18 01/31/18 Range/Units 15:30 15:30 15:30 WBC 14.2 H (4.8-10.8) K/uL RBC 4.13 L (4.40-5.90) Mil/uL Hgb 11.4 L (12.0-18.0) g/dL Hct 35.3 (35.0-51.0) % MCV 85.3 (80.0-94.0) fl MCH 27.5 (27.0-31.0) pg MCHC 32.3 L (33.0-37.0) g/dL RDW 13.4 (11.5-14.5) % Plt Count 186 (130-400) K/uL MPV 9.7 (7.2-11.7) fl Neut % (Auto) 91.8 H (50.0-75.0) % Lymph % (Auto) 1.9 L (20.0-40.0) % [place] % (Auto) 6.0 (0.0-10.0) % Eos % (Auto) 0.0 (0.0-4.0) % Baso % (Auto) 0.3 (0.0-2.0) % Neut # (Auto) 13.1 H (1.8-7.0) K/uL Lymph # (Auto) 0.3 L (1.0-4.3) K/uL [place] # (Auto) 0.9 H (0.0-0.8) K/uL Eos # (Auto) 0.0 (0.0-0.7) K/uL Baso # (Auto) 0.0 (0.0-0.2) K/uL Neutrophils % (Manual) 80 H (42-75) % Band Neutrophils % 4 H (0-2) % Lymphocytes % (Manual) 6 L (20-50) % Monocytes % (Manual) 9 (0-10) % Basophils % (Manual) 1 (0-2) % Platelet Estimate Normal (NORMAL) Hypochromasia (manual) Slight Anisocytosis (manual) Slight Microcytosis (manual) Slight ESR 38 H (0-15) mm/hr PT 11.9 (9.8-13.1) Seconds INR 1.1 (0.9-1.2) APTT 27.5 (25.6-37.1) Seconds pCO2 (35-45) mm/Hg pO2 (30-55) mm/Hg HCO3 (21-28) mmol/L ABG pH (7.35-7.45) ABG Total CO2 (22-28) mmol/L ABG O2 Saturation (95-98) % ABG O2 Content (15-23) ML/dL ABG Base Excess (-2.0-3.0) mmol/L ABG Hemoglobin (11.7-17.4) g/dL ABG Carboxyhemoglobin (0.5-1.5) % POC ABG HHb (Measured) (0.0-5.0) % ABG Methemoglobin (0.0-3.0) % ABG O2 Capacity (16-24) mL/dL Rony Test VBG pH (7.32-7.43) VBG pCO2 (40-60) mmHg VBG HCO3 mmol/L VBG Total CO2 (22-28) mmol/L VBG O2 Sat (Calc) (40-65) % VBG Base Excess (0.0-2.0) mmol/L VBG Potassium (3.6-5.2) mmol/L A-a O2 Difference mm/Hg Hgb O2 Saturation (95.0-98.0) % Glucose (75-110) mg/dL Lactate (0.7-2.1) mmol/L FiO2 % Sodium 133 (132-148) mmol/l Potassium 4.1 (3.6-5.0) MMOL/L Chloride 95 L (98-107) mmol/L Carbon Dioxide 13 L (22-30) mmol/L Anion Gap 29 H (10-20) BUN 17 (9-20) mg/dl Creatinine 1.2 (0.8-1.5) mg/dl Est GFR ( Amer) > 60 Est GFR (Non-Af Amer) > 60 POC Glucose (mg/dL) (65-110) mg/dL Random Glucose 372 H (75-110) mg/dL Calcium 9.5 (8.4-10.2) mg/dL Phosphorus 2.5 (2.5-4.5) mg/dl Magnesium 1.4 L (1.6-2.3) MG/DL Total Bilirubin 0.6 (0.2-1.3) mg/dl AST 17 (17-59) U/L ALT 27 (21-72) U/L Alkaline Phosphatase 93 (38-126) U/L Total Protein 7.2 (6.3-8.2) G/DL Albumin 4.0 (3.5-5.0) g/dL Globulin 3.2 (2.2-3.9) gm/dL Albumin/Globulin Ratio 1.2 (1.0-2.1) Lipase 41 (23-300) U/L Venous Blood Potassium (3.6-5.2) mmol/L Urine Color (YELLOW) Urine Clarity (Clear) Urine pH (5.0-8.0) Ur Specific [place] (1.003-1.030) Urine Protein (NEGATIVE) mg/dL Urine Glucose (UA) (Normal) mg/dL Urine Ketones (NEGATIVE) mg/dL Urine Blood (NEGATIVE) Urine Nitrate (NEGATIVE) Urine Bilirubin (NEGATIVE) Urine Urobilinogen (0.2-1.0) mg/dL Ur Leukocyte Esterase (Negative) Sj/uL Urine RBC (Auto) (0-3) /hpf Urine Microscopic WBC (0-5) /hpf Influenza Typ A,B (EIA) (NEGATIVE) Blood Type Antibody Screen BBK History Checked 10/07/17 Range/Units 15:09 WBC (4.8-10.8) K/uL RBC (4.40-5.90) Mil/uL Hgb (12.0-18.0) g/dL Hct (35.0-51.0) % MCV (80.0-94.0) fl MCH (27.0-31.0) pg MCHC (33.0-37.0) g/dL RDW (11.5-14.5) % Plt Count (130-400) K/uL MPV (7.2-11.7) fl Neut % (Auto) (50.0-75.0) % Lymph % (Auto) (20.0-40.0) % [place] % (Auto) (0.0-10.0) % Eos % (Auto) (0.0-4.0) % Baso % (Auto) (0.0-2.0) % Neut # (Auto) (1.8-7.0) K/uL Lymph # (Auto) (1.0-4.3) K/uL [place] # (Auto) (0.0-0.8) K/uL Eos # (Auto) (0.0-0.7) K/uL Baso # (Auto) (0.0-0.2) K/uL Neutrophils % (Manual) (42-75) % Band Neutrophils % (0-2) % Lymphocytes % (Manual) (20-50) % Monocytes % (Manual) (0-10) % Basophils % (Manual) (0-2) % Platelet Estimate (NORMAL) Hypochromasia (manual) Anisocytosis (manual) Microcytosis (manual) ESR (0-15) mm/hr PT (9.8-13.1) Seconds INR (0.9-1.2) APTT (25.6-37.1) Seconds pCO2 (35-45) mm/Hg pO2 (30-55) mm/Hg HCO3 (21-28) mmol/L ABG pH (7.35-7.45) ABG Total CO2 (22-28) mmol/L ABG O2 Saturation (95-98) % ABG O2 Content (15-23) ML/dL ABG Base Excess (-2.0-3.0) mmol/L ABG Hemoglobin (11.7-17.4) g/dL ABG Carboxyhemoglobin (0.5-1.5) % POC ABG HHb (Measured) (0.0-5.0) % ABG Methemoglobin (0.0-3.0) % ABG O2 Capacity (16-24) mL/dL Rony Test VBG pH (7.32-7.43) VBG pCO2 (40-60) mmHg VBG HCO3 mmol/L VBG Total CO2 (22-28) mmol/L VBG O2 Sat (Calc) (40-65) % VBG Base Excess (0.0-2.0) mmol/L VBG Potassium (3.6-5.2) mmol/L A-a O2 Difference mm/Hg Hgb O2 Saturation (95.0-98.0) % Glucose (75-110) mg/dL Lactate (0.7-2.1) mmol/L FiO2 % Sodium (132-148) mmol/l Potassium (3.6-5.0) MMOL/L Chloride (98-107) mmol/L Carbon Dioxide (22-30) mmol/L Anion Gap (10-20) BUN (9-20) mg/dl Creatinine (0.8-1.5) mg/dl Est GFR ( Amer) Est GFR (Non-Af Amer) POC Glucose (mg/dL) 301 H (65-110) mg/dL Random Glucose (75-110) mg/dL Calcium (8.4-10.2) mg/dL Phosphorus (2.5-4.5) mg/dl Magnesium (1.6-2.3) MG/DL Total Bilirubin (0.2-1.3) mg/dl AST (17-59) U/L ALT (21-72) U/L Alkaline Phosphatase (38-126) U/L Total Protein (6.3-8.2) G/DL Albumin (3.5-5.0) g/dL Globulin (2.2-3.9) gm/dL Albumin/Globulin Ratio (1.0-2.1) Lipase (23-300) U/L Venous Blood Potassium (3.6-5.2) mmol/L Urine Color (YELLOW) Urine Clarity (Clear) Urine pH (5.0-8.0) Ur Specific [place] (1.003-1.030) Urine Protein (NEGATIVE) mg/dL Urine Glucose (UA) (Normal) mg/dL Urine Ketones (NEGATIVE) mg/dL Urine Blood (NEGATIVE) Urine Nitrate (NEGATIVE) Urine Bilirubin (NEGATIVE) Urine Urobilinogen (0.2-1.0) mg/dL Ur Leukocyte Esterase (Negative) Sj/uL Urine RBC (Auto) (0-3) /hpf Urine Microscopic WBC (0-5) /hpf Influenza Typ A,B (EIA) (NEGATIVE) Blood Type Antibody Screen BBK History Checked Laboratory Results - last 24 hr 10/07/17 10/07/17 10/07/17 15:09 15:30 15:30 WBC 14.2 H RBC 4.13 L Hgb 11.4 L Hct 35.3 MCV 85.3 MCH 27.5 MCHC 32.3 L RDW 13.4 Plt Count 186 MPV 9.7 Neut % (Auto) 91.8 H Lymph % (Auto) 1.9 L [place] % (Auto) 6.0 Eos % (Auto) 0.0 Baso % (Auto) 0.3 Neut # (Auto) 13.1 H Lymph # (Auto) 0.3 L [place] # (Auto) 0.9 H Eos # (Auto) 0.0 Baso # (Auto) 0.0 Neutrophils % (Manual) 80 H Band Neutrophils % 4 H Lymphocytes % (Manual) 6 L Monocytes % (Manual) 9 Basophils % (Manual) 1 Platelet Estimate Normal Hypochromasia (manual) Slight Anisocytosis (manual) Slight Microcytosis (manual) Slight ESR 38 H PT INR APTT pCO2 pO2 HCO3 ABG pH ABG Total CO2 ABG O2 Saturation ABG O2 Content ABG Base Excess ABG Hemoglobin ABG Carboxyhemoglobin POC ABG HHb (Measured) ABG Methemoglobin ABG O2 Capacity Rony Test VBG pH VBG pCO2 VBG HCO3 VBG Total CO2 VBG O2 Sat (Calc) VBG Base Excess VBG Potassium A-a O2 Difference Hgb O2 Saturation Glucose Lactate FiO2 Sodium 133 Potassium 4.1 Chloride 95 L Carbon Dioxide 13 L Anion Gap 29 H BUN 17 Creatinine 1.2 Est GFR ( Amer) > 60 Est GFR (Non-Af Amer) > 60 POC Glucose (mg/dL) 301 H Random Glucose 372 H Calcium 9.5 Phosphorus 2.5 Magnesium 1.4 L Total Bilirubin 0.6 AST 17 ALT 27 Alkaline Phosphatase 93 Total Protein 7.2 Albumin 4.0 Globulin 3.2 Albumin/Globulin Ratio 1.2 Lipase 41 Venous Blood Potassium Urine Color Urine Clarity Urine pH Ur Specific [place] Urine Protein Urine Glucose (UA) Urine Ketones Urine Blood Urine Nitrate Urine Bilirubin Urine Urobilinogen Ur Leukocyte Esterase Urine RBC (Auto) Urine Microscopic WBC Influenza Typ A,B (EIA) Blood Type Antibody Screen BBK History Checked 10/07/17 10/07/17 10/07/17 15:30 15:30 15:30 WBC RBC Hgb Hct MCV MCH MCHC RDW Plt Count MPV Neut % (Auto) Lymph % (Auto) [place] % (Auto) Eos % (Auto) Baso % (Auto) Neut # (Auto) Lymph # (Auto) [place] # (Auto) Eos # (Auto) Baso # (Auto) Neutrophils % (Manual) Band Neutrophils % Lymphocytes % (Manual) Monocytes % (Manual) Basophils % (Manual) Platelet Estimate Hypochromasia (manual) Anisocytosis (manual) Microcytosis (manual) ESR PT 11.9 INR 1.1 APTT 27.5 pCO2 pO2 HCO3 ABG pH ABG Total CO2 ABG O2 Saturation ABG O2 Content ABG Base Excess ABG Hemoglobin ABG Carboxyhemoglobin POC ABG HHb (Measured) ABG Methemoglobin ABG O2 Capacity Rony Test VBG pH VBG pCO2 VBG HCO3 VBG Total CO2 VBG O2 Sat (Calc) VBG Base Excess VBG Potassium A-a O2 Difference Hgb O2 Saturation Glucose Lactate FiO2 Sodium Potassium Chloride Carbon Dioxide Anion Gap BUN Creatinine Est GFR ( Amer) Est GFR (Non-Af Amer) POC Glucose (mg/dL) Random Glucose Calcium Phosphorus Magnesium Total Bilirubin AST ALT Alkaline Phosphatase Total Protein Albumin Globulin Albumin/Globulin Ratio Lipase Venous Blood Potassium Urine Color Urine Clarity Urine pH Ur Specific [place] Urine Protein Urine Glucose (UA) Urine Ketones Urine Blood Urine Nitrate Urine Bilirubin Urine Urobilinogen Ur Leukocyte Esterase Urine RBC (Auto) Urine Microscopic WBC Influenza Typ A,B (EIA) Negative for flu a/b Blood Type O POSITIVE Antibody Screen Negative BBK History Checked Patient has bt 10/07/17 10/07/17 10/07/17 15:50 16:28 17:26 WBC RBC Hgb Hct MCV MCH MCHC RDW Plt Count MPV Neut % (Auto) Lymph % (Auto) [place] % (Auto) Eos % (Auto) Baso % (Auto) Neut # (Auto) Lymph # (Auto) [place] # (Auto) Eos # (Auto) Baso # (Auto) Neutrophils % (Manual) Band Neutrophils % Lymphocytes % (Manual) Monocytes % (Manual) Basophils % (Manual) Platelet Estimate Hypochromasia (manual) Anisocytosis (manual) Microcytosis (manual) ESR PT INR APTT pCO2 31 L pO2 55 89 HCO3 17.1 L ABG pH 7.30 L ABG Total CO2 16.3 L ABG O2 Saturation 98.6 H ABG O2 Content 14.8 L ABG Base Excess -10.0 L ABG Hemoglobin 11.1 L ABG Carboxyhemoglobin 1.2 POC ABG HHb (Measured) 1.3 ABG Methemoglobin 3.5 H ABG O2 Capacity 15.0 L Rony Test Yes VBG pH 7.29 L VBG pCO2 31 L VBG HCO3 16.5 VBG Total CO2 15.9 L VBG O2 Sat (Calc) 95.2 H VBG Base Excess -10.4 L VBG Potassium 4.1 A-a O2 Difference 22.0 Hgb O2 Saturation 94.0 L Glucose 380 H Lactate 1.1 FiO2 21.0 21.0 Sodium 129.0 L Potassium Chloride 93.0 L Carbon Dioxide Anion Gap BUN Creatinine Est GFR ( Amer) Est GFR (Non-Af Amer) POC Glucose (mg/dL) 318 H Random Glucose Calcium Phosphorus Magnesium Total Bilirubin AST ALT Alkaline Phosphatase Total Protein Albumin Globulin Albumin/Globulin Ratio Lipase Venous Blood Potassium 4.1 Urine Color Urine Clarity Urine pH Ur Specific [place] Urine Protein Urine Glucose (UA) Urine Ketones Urine Blood Urine Nitrate Urine Bilirubin Urine Urobilinogen Ur Leukocyte Esterase Urine RBC (Auto) Urine Microscopic WBC Influenza Typ A,B (EIA) Blood Type Antibody Screen BBK History Checked 10/07/17 17:30 WBC RBC Hgb Hct MCV MCH MCHC RDW Plt Count MPV Neut % (Auto) Lymph % (Auto) [place] % (Auto) Eos % (Auto) Baso % (Auto) Neut # (Auto) Lymph # (Auto) [place] # (Auto) Eos # (Auto) Baso # (Auto) Neutrophils % (Manual) Band Neutrophils % Lymphocytes % (Manual) Monocytes % (Manual) Basophils % (Manual) Platelet Estimate Hypochromasia (manual) Anisocytosis (manual) Microcytosis (manual) ESR PT INR APTT pCO2 pO2 HCO3 ABG pH ABG Total CO2 ABG O2 Saturation ABG O2 Content ABG Base Excess ABG Hemoglobin ABG Carboxyhemoglobin POC ABG HHb (Measured) ABG Methemoglobin ABG O2 Capacity Rony Test VBG pH VBG pCO2 VBG HCO3 VBG Total CO2 VBG O2 Sat (Calc) VBG Base Excess VBG Potassium A-a O2 Difference Hgb O2 Saturation Glucose Lactate FiO2 Sodium Potassium Chloride Carbon Dioxide Anion Gap BUN Creatinine Est GFR ( Amer) Est GFR (Non-Af Amer) POC Glucose (mg/dL) Random Glucose Calcium Phosphorus Magnesium Total Bilirubin AST ALT Alkaline Phosphatase Total Protein Albumin Globulin Albumin/Globulin Ratio Lipase Venous Blood Potassium Urine Color Yellow Urine Clarity Clear Urine pH 6.0 Ur Specific [place] 1.020 Urine Protein 100 Urine Glucose (UA) >=500 Urine Ketones 80 Urine Blood Small Urine Nitrate Negative Urine Bilirubin Negative Urine Urobilinogen 0.2-1.0 Ur Leukocyte Esterase Neg Urine RBC (Auto) 6 H Urine Microscopic WBC < 1 Influenza Typ A,B (EIA) Blood Type Antibody Screen BBK History Checked Fingerstick Blood Sugar Results: 246 Review of Systems - Review of Systems All systems: reviewed and no additional remarkable complaints except (as above)
[2017-10-07 20:01] LABS: BLOOD UREA NITROGEN 18 mg/dl (9-20); CALCIUM 8.1 mg/dL (8.4-10.2); GFR AFRICAN-AMERICAN > 60; GFR NON-AFRICAN AMERICAN > 60; MAGNESIUM 1.6 MG/DL (1.6-2.3)
[2017-10-07] MEDS: Potassium CL 10 MEQ/50 ML 50 ML IVPB SCH ×2 (21:00→22:00)
[2017-10-07] MEDS ORDERED: Potassium Ch 20mEq in D5-1/2NS 1,000 ML IV SCH (21:15)
[2017-10-07 21:39] LABS: BLOOD UREA NITROGEN 18 mg/dl (9-20); GFR AFRICAN-AMERICAN > 60; GFR NON-AFRICAN AMERICAN > 60
[2017-10-07] MEDS ORDERED: Insulin Detemir 100 Units/ml Inj SC SCH ×2 (22:00)
[2017-10-07] MEDS ORDERED: Bacitracin OINT 15GM TOP SCH (22:30)
[2017-10-07] MEDS: Insulin Regular 100 units/ml SC SCH (22:39)
[2017-10-07] MEDS: Sodium Chloride 0.9% 1,000 ML IV SCH (22:45)
[2017-10-07] MEDS ORDERED: Influenza Vaccine 18yr & older 0.5 ML/45 MCG SYR IM ONE (23:00)
[2017-10-07] MEDS ORDERED: Pneumococcal 23-Valent Vaccine IM ONE (23:00)
[2017-10-07] MEDS: Piperacillin/Tazobact 3.375 GM in Sodium Chloride 0.9% 50 ML IVPB SCH (23:06)
[2017-10-07 23:41] VITALS: BMI 21.5
[2017-10-08 01:36] LABS: BARBITURATES, UR NEGATIVE (NEGATIVE); BENZODIAZEPINES, UR NEGATIVE (NEGATIVE); OPIATES, UR NEGATIVE (NEGATIVE); PHENCYCLIDINE, UR NEGATIVE (NEGATIVE)
[2017-10-08] MEDS: Piperacillin/Tazobact 3.375 GM in Sodium Chloride 0.9% 50 ML IVPB SCH ×4 (04:00→21:26)
[2017-10-08 05:14] LABS: HEMOGLOBIN 10.4 g/dL (12.0-18.0); MEAN CELL VOLUME 85.2 fl (80.0-94.0); MEAN CORPUSCULAR HEMOGLOBIN 27.7 pg (27.0-31.0); MEAN CORPUSCULAR HGB CONC 32.5 g/dL (33.0-37.0); RBC 3.75 Mil/uL (4.40-5.90); RED CELL DISTRIBUTION WIDTH 13.5 % (11.5-14.5); WHITE BLOOD COUNT 9.7 K/uL (4.8-10.8)
[2017-10-08 05:21] LABS: ALB/GLOB RATIO 0.9 (1.0-2.1); ALBUMIN 2.6 g/dL (3.5-5.0); ALT/SGPT 33 U/L (21-72); AST/SGOT 31 U/L (17-59); BLOOD UREA NITROGEN 19 mg/dl (9-20); GFR AFRICAN-AMERICAN > 60; GFR NON-AFRICAN AMERICAN > 60; HDL CHOLESTEROL 38 MG/DL (30-70); MAGNESIUM 1.6 MG/DL (1.6-2.3)
[2017-10-08 05:30] LABS: LDL CHOLESTEROL 95 mg/dL (0-129)
[2017-10-08] MEDS: Sodium Chloride 0.9% 1,000 ML IV SCH ×4 (05:33→23:10)
[2017-10-08] MEDS ORDERED: Potassium & Sodium Phosphate PO ONE (07:30)
[2017-10-08] MEDS ORDERED: Insulin Regular 100 units/ml SC SCH (07:30)
[2017-10-08] MEDS: Insulin Regular 100 units/ml SC SCH ×6 (07:31→21:24)
--- NOTE | 2017-10-08 08:08 | CP.CCUPN ---
CCU Subjective - Physician Review Subjective (Free Text): Uneventful night, no new or recurrent fever spikes. Fluids and insulin drip / regimen adjusted as per Senior [employer] Developer. Otherwise, awake, intact mental status , oriented x 3, no increase nor new complaints related to left foot. Other vitals and I/O's reviewed. ROS: No other pertinent negs or positives on 10+ system review. PMSFH: All other Nursing and physician documentation reviewed to date; no new pertinent info noted relevant to current medical problems. IMPRESSION / MAJOR PROBLEMS NOW: 1. DKA 2 medication non-compliance and left foot infection, no Osteomyelitis on initial xrays 2. Dehydration / Hypovolemia, r/o bacteremia 3. Chronic Disease Anemia PLAN: 1. Serum bicarb has normalized as well as Lactate levels. 2. NSS infusion, SQ Levemir and Humulin insulin AC meals, Accuchecks reduced to AC HS as ordered by Senior [employer] Developer. 3. Podiatry considering Foot MRI study to definitively assess for any presence of Osteomyelitis. 4. Stable for stepdown to regular med / surg bed for further mgmt. CCU Objective - Vital Signs / Intake & Output Vital Signs (Last 4 hours): Vital Signs Pulse Resp BP Pulse Ox 10/08/17 06:00 89 14 84/51 L 99 Intake and Output (Last 8hrs): Intake & Output 10/07/17 10/08/17 10/08/17 22:59 06:59 14:59 Intake Total 5006 600 Output Total 1050 Balance 3956 600 Weight 150 lb Intake: IV 4956 600 Oral 50 Output: Urine 1050 Urine, Voided 400 - Physical Exam Head: Positive for: Normocephalic Pupils: Positive for: PERRL Extroacular Muscles: Positive for: EOMI Conjunctiva: Positive for: Normal. Negative for: Icteric Mouth: Positive for: Dry Neck: Negative for: Meningeal Signs, JVD Respiratory/Chest: Positive for: Clear to Auscultation Cardiovascular: Positive for: Regular Rate and Rhythm. Negative for: Murmurs, Rub Abdomen: Positive for: Normal Bowel Sounds. 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 Left distal plantar surface superfical ulcer, no discharge, no crepitus. ). Negative for: CALF TENDERNESS, Cyanosis Skin: Positive for: Warm, Dry. Negative for: Rashes Psychiatric: Positive for: Alert, Oriented x 3 - Medications Active Medications: Active Medications Generic Name Dose Route Start Last Admin Trade Name Freq PRN Reason Stop Dose Admin Acetaminophen 650 mg 10/08/17 02:21 10/08/17 02:27 Tylenol 325mg Tab PO 650 mg Q4 PRN Administration Fever >100.4 F Bacitracin 1 applic 10/07/17 22:30 Bacitracin Oint TOP ONCE TASHA Dextrose 0 ml 10/07/17 16:39 Dextrose 50% Inj IV STAT PRN Hypoglycemia Protocol Protocol Dextrose 0 gm 10/07/17 16:39 Glutose 15 PO ONCE PRN Hypoglycemia Protocol Protocol Enoxaparin Sodium 40 mg 10/08/17 09:00 Lovenox SC DAILY TASHA Protocol Glucagon 0 mg 10/07/17 16:39 Glucagen Diagnostic Kit IM STAT PRN Hypoglycemia Protocol Protocol Piperacillin Sod/Tazobactam 50 mls @ 50 mls/hr 10/07/17 22:00 10/08/17 04:00 Sod 3.375 gm/ Sodium Chloride IVPB 50 mls/hr Q6 TASHA Administration Protocol Vancomycin HCl 1 gm/ Sodium 250 mls @ 166.667 mls/hr 10/08/17 06:00 10/08/17 05:25 Chloride IVPB 166.667 mls/hr Q12@0600,1800 TASHA Administration Protocol Sodium Chloride 1,000 mls @ 200 mls/hr 10/07/17 22:30 10/08/17 05:33 Sodium Chloride 0.9% IV 10/09/17 01:14 200 mls/hr .Q5H TASHA Administration Insulin Detemir 20 units 10/07/17 22:00 10/07/17 22:36 Levemir SC 20 units HS TASHA Administration Insulin Human Regular 0 units 10/07/17 22:00 10/08/17 07:31 Humulin R SC Not Given ACHS TASHA Insulin Human Regular 14 units 10/08/17 07:30 Humulin R SC [facility] Insulin Human Regular 10 units 10/08/17 16:30 Humulin R SC ACD TASHA - Patient Studies Lab Studies: Microbiology Studies 10/07/17 15:30 Gram Stain - Final Foot - Left Lab Studies 10/08/17 10/08/17 10/08/17 Range/Units 05:00 05:00 01:15 WBC 9.7 (4.8-10.8) K/uL RBC 3.75 L (4.40-5.90) Mil/uL Hgb 10.4 L (12.0-18.0) g/dL Hct 32.0 L (35.0-51.0) % MCV 85.2 (80.0-94.0) fl MCH 27.7 (27.0-31.0) pg MCHC 32.5 L (33.0-37.0) g/dL RDW 13.5 (11.5-14.5) % Plt Count 152 (130-400) K/uL MPV (7.2-11.7) fl Neut % (Auto) (50.0-75.0) % Lymph % (Auto) (20.0-40.0) % [place] % (Auto) (0.0-10.0) % Eos % (Auto) (0.0-4.0) % Baso % (Auto) (0.0-2.0) % Neut # (Auto) (1.8-7.0) K/uL Lymph # (Auto) (1.0-4.3) K/uL [place] # (Auto) (0.0-0.8) K/uL Eos # (Auto) (0.0-0.7) K/uL Baso # (Auto) (0.0-0.2) K/uL Neutrophils % (Manual) (42-75) % Band Neutrophils % (0-2) % Lymphocytes % (Manual) (20-50) % Monocytes % (Manual) (0-10) % Basophils % (Manual) (0-2) % Platelet Estimate (NORMAL) Hypochromasia (manual) Anisocytosis (manual) Microcytosis (manual) ESR (0-15) mm/hr PT (9.8-13.1) Seconds INR (0.9-1.2) APTT (25.6-37.1) Seconds pCO2 (35-45) mm/Hg pO2 (30-55) mm/Hg HCO3 (21-28) mmol/L ABG pH (7.35-7.45) ABG Total CO2 (22-28) mmol/L ABG O2 Saturation (95-98) % ABG O2 Content (15-23) ML/dL ABG Base Excess (-2.0-3.0) mmol/L ABG Hemoglobin (11.7-17.4) g/dL ABG Carboxyhemoglobin (0.5-1.5) % POC ABG HHb (Measured) (0.0-5.0) % ABG Methemoglobin (0.0-3.0) % ABG O2 Capacity (16-24) mL/dL Rony Test VBG pH (7.32-7.43) VBG pCO2 (40-60) mmHg VBG HCO3 mmol/L VBG Total CO2 (22-28) mmol/L VBG O2 Sat (Calc) (40-65) % VBG Base Excess (0.0-2.0) mmol/L VBG Potassium (3.6-5.2) mmol/L A-a O2 Difference mm/Hg Hgb O2 Saturation (95.0-98.0) % Glucose (75-110) mg/dL Lactate (0.7-2.1) mmol/L FiO2 % Sodium 136 (132-148) mmol/l Potassium 3.7 (3.6-5.0) MMOL/L Chloride 108 H (98-107) mmol/L Carbon Dioxide 22 (22-30) mmol/L Anion Gap 10 (10-20) BUN 19 (9-20) mg/dl Creatinine 1.1 (0.8-1.5) mg/dl Est GFR ( Amer) > 60 Est GFR (Non-Af Amer) > 60 POC Glucose (mg/dL) (65-110) mg/dL Random Glucose 141 H (75-110) mg/dL Lactic Acid (0.7-2.1) MMOL/L Calcium 8.0 L (8.4-10.2) mg/dL Phosphorus 2.0 L (2.5-4.5) mg/dl Magnesium 1.6 (1.6-2.3) MG/DL Total Bilirubin 0.3 (0.2-1.3) mg/dl AST 31 (17-59) U/L ALT 33 (21-72) U/L Alkaline Phosphatase 58 (38-126) U/L Total Protein 5.6 L (6.3-8.2) G/DL Albumin 2.6 L D (3.5-5.0) g/dL Globulin 3.0 (2.2-3.9) gm/dL Albumin/Globulin Ratio 0.9 L (1.0-2.1) Triglycerides 54 (0-149) mg/DL Cholesterol 146 (0-199) mg/dL LDL Cholesterol Direct 95 (0-129) mg/dL HDL Cholesterol 38 (30-70) MG/DL Lipase (23-300) U/L Venous Blood Potassium (3.6-5.2) mmol/L Urine Color (YELLOW) Urine Clarity (Clear) Urine pH (5.0-8.0) Ur Specific [place] (1.003-1.030) Urine Protein (NEGATIVE) mg/dL Urine Glucose (UA) (Normal) mg/dL Urine Ketones (NEGATIVE) mg/dL Urine Blood (NEGATIVE) Urine Nitrate (NEGATIVE) Urine Bilirubin (NEGATIVE) Urine Urobilinogen (0.2-1.0) mg/dL Ur Leukocyte Esterase (Negative) Sj/uL Urine RBC (Auto) (0-3) /hpf Urine Microscopic WBC (0-5) /hpf Urine Opiates Screen Negative (NEGATIVE) Urine Methadone Screen Negative (NEGATIVE) Ur Barbiturates Screen Negative (NEGATIVE) Ur Phencyclidine Scrn Negative (NEGATIVE) Ur Amphetamines Screen Negative (NEGATIVE) U Benzodiazepines Scrn Negative (NEGATIVE) U Oth Cocaine Metabols Negative (NEGATIVE) U Cannabinoids Screen Negative (NEGATIVE) Influenza Typ A,B (EIA) (NEGATIVE) Blood Type Antibody Screen BBK History Checked 10/08/17 10/07/17 10/07/17 Range/Units 00:02 22:38 21:34 WBC (4.8-10.8) K/uL RBC (4.40-5.90) Mil/uL Hgb (12.0-18.0) g/dL Hct (35.0-51.0) % MCV (80.0-94.0) fl MCH (27.0-31.0) pg MCHC (33.0-37.0) g/dL RDW (11.5-14.5) % Plt Count (130-400) K/uL MPV (7.2-11.7) fl Neut % (Auto) (50.0-75.0) % Lymph % (Auto) (20.0-40.0) % [place] % (Auto) (0.0-10.0) % Eos % (Auto) (0.0-4.0) % Baso % (Auto) (0.0-2.0) % Neut # (Auto) (1.8-7.0) K/uL Lymph # (Auto) (1.0-4.3) K/uL [place] # (Auto) (0.0-0.8) K/uL Eos # (Auto) (0.0-0.7) K/uL Baso # (Auto) (0.0-0.2) K/uL Neutrophils % (Manual) (42-75) % Band Neutrophils % (0-2) % Lymphocytes % (Manual) (20-50) % Monocytes % (Manual) (0-10) % Basophils % (Manual) (0-2) % Platelet Estimate (NORMAL) Hypochromasia (manual) Anisocytosis (manual) Microcytosis (manual) ESR (0-15) mm/hr PT (9.8-13.1) Seconds INR (0.9-1.2) APTT (25.6-37.1) Seconds pCO2 (35-45) mm/Hg pO2 (30-55) mm/Hg HCO3 (21-28) mmol/L ABG pH (7.35-7.45) ABG Total CO2 (22-28) mmol/L ABG O2 Saturation (95-98) % ABG O2 Content (15-23) ML/dL ABG Base Excess (-2.0-3.0) mmol/L ABG Hemoglobin (11.7-17.4) g/dL ABG Carboxyhemoglobin (0.5-1.5) % POC ABG HHb (Measured) (0.0-5.0) % ABG Methemoglobin (0.0-3.0) % ABG O2 Capacity (16-24) mL/dL Rony Test VBG pH (7.32-7.43) VBG pCO2 (40-60) mmHg VBG HCO3 mmol/L VBG Total CO2 (22-28) mmol/L VBG O2 Sat (Calc) (40-65) % VBG Base Excess (0.0-2.0) mmol/L VBG Potassium (3.6-5.2) mmol/L A-a O2 Difference mm/Hg Hgb O2 Saturation (95.0-98.0) % Glucose (75-110) mg/dL Lactate (0.7-2.1) mmol/L FiO2 % Sodium (132-148) mmol/l Potassium (3.6-5.0) MMOL/L Chloride (98-107) mmol/L Carbon Dioxide (22-30) mmol/L Anion Gap (10-20) BUN (9-20) mg/dl Creatinine (0.8-1.5) mg/dl Est GFR ( Amer) Est GFR (Non-Af Amer) POC Glucose (mg/dL) 126 H 167 H 203 H (65-110) mg/dL Random Glucose (75-110) mg/dL Lactic Acid (0.7-2.1) MMOL/L Calcium (8.4-10.2) mg/dL Phosphorus (2.5-4.5) mg/dl Magnesium (1.6-2.3) MG/DL Total Bilirubin (0.2-1.3) mg/dl AST (17-59) U/L ALT (21-72) U/L Alkaline Phosphatase (38-126) U/L Total Protein (6.3-8.2) G/DL Albumin (3.5-5.0) g/dL Globulin (2.2-3.9) gm/dL Albumin/Globulin Ratio (1.0-2.1) Triglycerides (0-149) mg/DL Cholesterol (0-199) mg/dL LDL Cholesterol Direct (0-129) mg/dL HDL Cholesterol (30-70) MG/DL Lipase (23-300) U/L Venous Blood Potassium (3.6-5.2) mmol/L Urine Color (YELLOW) Urine Clarity (Clear) Urine pH (5.0-8.0) Ur Specific [place] (1.003-1.030) Urine Protein (NEGATIVE) mg/dL Urine Glucose (UA) (Normal) mg/dL Urine Ketones (NEGATIVE) mg/dL Urine Blood (NEGATIVE) Urine Nitrate (NEGATIVE) Urine Bilirubin (NEGATIVE) Urine Urobilinogen (0.2-1.0) mg/dL Ur Leukocyte Esterase (Negative) Sj/uL Urine RBC (Auto) (0-3) /hpf Urine Microscopic WBC (0-5) /hpf Urine Opiates Screen (NEGATIVE) Urine Methadone Screen (NEGATIVE) Ur Barbiturates Screen (NEGATIVE) Ur Phencyclidine Scrn (NEGATIVE) Ur Amphetamines Screen (NEGATIVE) U Benzodiazepines Scrn (NEGATIVE) U Oth Cocaine Metabols (NEGATIVE) U Cannabinoids Screen (NEGATIVE) Influenza Typ A,B (EIA) (NEGATIVE) Blood Type Antibody Screen BBK History Checked 10/07/17 10/07/17 10/07/17 Range/Units 20:54 20:54 19:58 WBC (4.8-10.8) K/uL RBC (4.40-5.90) Mil/uL Hgb (12.0-18.0) g/dL Hct (35.0-51.0) % MCV (80.0-94.0) fl MCH (27.0-31.0) pg MCHC (33.0-37.0) g/dL RDW (11.5-14.5) % Plt Count (130-400) K/uL MPV (7.2-11.7) fl Neut % (Auto) (50.0-75.0) % Lymph % (Auto) (20.0-40.0) % [place] % (Auto) (0.0-10.0) % Eos % (Auto) (0.0-4.0) % Baso % (Auto) (0.0-2.0) % Neut # (Auto) (1.8-7.0) K/uL Lymph # (Auto) (1.0-4.3) K/uL [place] # (Auto) (0.0-0.8) K/uL Eos # (Auto) (0.0-0.7) K/uL Baso # (Auto) (0.0-0.2) K/uL Neutrophils % (Manual) (42-75) % Band Neutrophils % (0-2) % Lymphocytes % (Manual) (20-50) % Monocytes % (Manual) (0-10) % Basophils % (Manual) (0-2) % Platelet Estimate (NORMAL) Hypochromasia (manual) Anisocytosis (manual) Microcytosis (manual) ESR (0-15) mm/hr PT (9.8-13.1) Seconds INR (0.9-1.2) APTT (25.6-37.1) Seconds pCO2 (35-45) mm/Hg pO2 (30-55) mm/Hg HCO3 (21-28) mmol/L ABG pH (7.35-7.45) ABG Total CO2 (22-28) mmol/L ABG O2 Saturation (95-98) % ABG O2 Content (15-23) ML/dL ABG Base Excess (-2.0-3.0) mmol/L ABG Hemoglobin (11.7-17.4) g/dL ABG Carboxyhemoglobin (0.5-1.5) % POC ABG HHb (Measured) (0.0-5.0) % ABG Methemoglobin (0.0-3.0) % ABG O2 Capacity (16-24) mL/dL Rony Test VBG pH (7.32-7.43) VBG pCO2 (40-60) mmHg VBG HCO3 mmol/L VBG Total CO2 (22-28) mmol/L VBG O2 Sat (Calc) (40-65) % VBG Base Excess (0.0-2.0) mmol/L VBG Potassium (3.6-5.2) mmol/L A-a O2 Difference mm/Hg Hgb O2 Saturation (95.0-98.0) % Glucose (75-110) mg/dL Lactate (0.7-2.1) mmol/L FiO2 % Sodium 135 (132-148) mmol/l Potassium 3.5 L (3.6-5.0) MMOL/L Chloride 105 (98-107) mmol/L Carbon Dioxide 19 L (22-30) mmol/L Anion Gap 15 (10-20) BUN 18 (9-20) mg/dl Creatinine 1.2 (0.8-1.5) mg/dl Est GFR ( Amer) > 60 Est GFR (Non-Af Amer) > 60 POC Glucose (mg/dL) 205 H (65-110) mg/dL Random Glucose 225 H (75-110) mg/dL Lactic Acid 1.0 (0.7-2.1) MMOL/L Calcium 8.0 L (8.4-10.2) mg/dL Phosphorus 3.3 (2.5-4.5) mg/dl Magnesium (1.6-2.3) MG/DL Total Bilirubin (0.2-1.3) mg/dl AST (17-59) U/L ALT (21-72) U/L Alkaline Phosphatase (38-126) U/L Total Protein (6.3-8.2) G/DL Albumin (3.5-5.0) g/dL Globulin (2.2-3.9) gm/dL Albumin/Globulin Ratio (1.0-2.1) Triglycerides (0-149) mg/DL Cholesterol (0-199) mg/dL LDL Cholesterol Direct (0-129) mg/dL HDL Cholesterol (30-70) MG/DL Lipase (23-300) U/L Venous Blood Potassium (3.6-5.2) mmol/L Urine Color (YELLOW) Urine Clarity (Clear) Urine pH (5.0-8.0) Ur Specific [place] (1.003-1.030) Urine Protein (NEGATIVE) mg/dL Urine Glucose (UA) (Normal) mg/dL Urine Ketones (NEGATIVE) mg/dL Urine Blood (NEGATIVE) Urine Nitrate (NEGATIVE) Urine Bilirubin (NEGATIVE) Urine Urobilinogen (0.2-1.0) mg/dL Ur Leukocyte Esterase (Negative) Sj/uL Urine RBC (Auto) (0-3) /hpf Urine Microscopic WBC (0-5) /hpf Urine Opiates Screen (NEGATIVE) Urine Methadone Screen (NEGATIVE) Ur Barbiturates Screen (NEGATIVE) Ur Phencyclidine Scrn (NEGATIVE) Ur Amphetamines Screen (NEGATIVE) U Benzodiazepines Scrn (NEGATIVE) U Oth Cocaine Metabols (NEGATIVE) U Cannabinoids Screen (NEGATIVE) Influenza Typ A,B (EIA) (NEGATIVE) Blood Type Antibody Screen BBK History Checked 10/07/17 10/07/17 10/07/17 Range/Units 19:00 18:45 17:30 WBC (4.8-10.8) K/uL RBC (4.40-5.90) Mil/uL Hgb (12.0-18.0) g/dL Hct (35.0-51.0) % MCV (80.0-94.0) fl MCH (27.0-31.0) pg MCHC (33.0-37.0) g/dL RDW (11.5-14.5) % Plt Count (130-400) K/uL MPV (7.2-11.7) fl Neut % (Auto) (50.0-75.0) % Lymph % (Auto) (20.0-40.0) % [place] % (Auto) (0.0-10.0) % Eos % (Auto) (0.0-4.0) % Baso % (Auto) (0.0-2.0) % Neut # (Auto) (1.8-7.0) K/uL Lymph # (Auto) (1.0-4.3) K/uL [place] # (Auto) (0.0-0.8) K/uL Eos # (Auto) (0.0-0.7) K/uL Baso # (Auto) (0.0-0.2) K/uL Neutrophils % (Manual) (42-75) % Band Neutrophils % (0-2) % Lymphocytes % (Manual) (20-50) % Monocytes % (Manual) (0-10) % Basophils % (Manual) (0-2) % Platelet Estimate (NORMAL) Hypochromasia (manual) Anisocytosis (manual) Microcytosis (manual) ESR (0-15) mm/hr PT (9.8-13.1) Seconds INR (0.9-1.2) APTT (25.6-37.1) Seconds pCO2 (35-45) mm/Hg pO2 (30-55) mm/Hg HCO3 (21-28) mmol/L ABG pH (7.35-7.45) ABG Total CO2 (22-28) mmol/L ABG O2 Saturation (95-98) % ABG O2 Content (15-23) ML/dL ABG Base Excess (-2.0-3.0) mmol/L ABG Hemoglobin (11.7-17.4) g/dL ABG Carboxyhemoglobin (0.5-1.5) % POC ABG HHb (Measured) (0.0-5.0) % ABG Methemoglobin (0.0-3.0) % ABG O2 Capacity (16-24) mL/dL Rony Test VBG pH (7.32-7.43) VBG pCO2 (40-60) mmHg VBG HCO3 mmol/L VBG Total CO2 (22-28) mmol/L VBG O2 Sat (Calc) (40-65) % VBG Base Excess (0.0-2.0) mmol/L VBG Potassium (3.6-5.2) mmol/L A-a O2 Difference mm/Hg Hgb O2 Saturation (95.0-98.0) % Glucose (75-110) mg/dL Lactate (0.7-2.1) mmol/L FiO2 % Sodium 135 (132-148) mmol/l Potassium 3.3 L (3.6-5.0) MMOL/L Chloride 104 (98-107) mmol/L Carbon Dioxide 16 L (22-30) mmol/L Anion Gap 18 (10-20) BUN 18 (9-20) mg/dl Creatinine 1.3 (0.8-1.5) mg/dl Est GFR ( Amer) > 60 Est GFR (Non-Af Amer) > 60 POC Glucose (mg/dL) 246 H (65-110) mg/dL Random Glucose 255 H (75-110) mg/dL Lactic Acid (0.7-2.1) MMOL/L Calcium 8.1 L (8.4-10.2) mg/dL Phosphorus (2.5-4.5) mg/dl Magnesium 1.6 (1.6-2.3) MG/DL Total Bilirubin (0.2-1.3) mg/dl AST (17-59) U/L ALT (21-72) U/L Alkaline Phosphatase (38-126) U/L Total Protein (6.3-8.2) G/DL Albumin (3.5-5.0) g/dL Globulin (2.2-3.9) gm/dL Albumin/Globulin Ratio (1.0-2.1) Triglycerides (0-149) mg/DL Cholesterol (0-199) mg/dL LDL Cholesterol Direct (0-129) mg/dL HDL Cholesterol (30-70) MG/DL Lipase (23-300) U/L Venous Blood Potassium (3.6-5.2) mmol/L Urine Color Yellow (YELLOW) Urine Clarity Clear (Clear) Urine pH 6.0 (5.0-8.0) Ur Specific [place] 1.020 (1.003-1.030) Urine Protein 100 (NEGATIVE) mg/dL Urine Glucose (UA) >=500 (Normal) mg/dL Urine Ketones 80 (NEGATIVE) mg/dL Urine Blood Small (NEGATIVE) Urine Nitrate Negative (NEGATIVE) Urine Bilirubin Negative (NEGATIVE) Urine Urobilinogen 0.2-1.0 (0.2-1.0) mg/dL Ur Leukocyte Esterase Neg (Negative) Sj/uL Urine RBC (Auto) 6 H (0-3) /hpf Urine Microscopic WBC < 1 (0-5) /hpf Urine Opiates Screen (NEGATIVE) Urine Methadone Screen (NEGATIVE) Ur Barbiturates Screen (NEGATIVE) Ur Phencyclidine Scrn (NEGATIVE) Ur Amphetamines Screen (NEGATIVE) U Benzodiazepines Scrn (NEGATIVE) U Oth Cocaine Metabols (NEGATIVE) U Cannabinoids Screen (NEGATIVE) Influenza Typ A,B (EIA) (NEGATIVE) Blood Type Antibody Screen BBK History Checked 10/07/17 10/07/17 10/07/17 Range/Units 17:26 16:28 15:50 WBC (4.8-10.8) K/uL RBC (4.40-5.90) Mil/uL Hgb (12.0-18.0) g/dL Hct (35.0-51.0) % MCV (80.0-94.0) fl MCH (27.0-31.0) pg MCHC (33.0-37.0) g/dL RDW (11.5-14.5) % Plt Count (130-400) K/uL MPV (7.2-11.7) fl Neut % (Auto) (50.0-75.0) % Lymph % (Auto) (20.0-40.0) % [place] % (Auto) (0.0-10.0) % Eos % (Auto) (0.0-4.0) % Baso % (Auto) (0.0-2.0) % Neut # (Auto) (1.8-7.0) K/uL Lymph # (Auto) (1.0-4.3) K/uL [place] # (Auto) (0.0-0.8) K/uL Eos # (Auto) (0.0-0.7) K/uL Baso # (Auto) (0.0-0.2) K/uL Neutrophils % (Manual) (42-75) % Band Neutrophils % (0-2) % Lymphocytes % (Manual) (20-50) % Monocytes % (Manual) (0-10) % Basophils % (Manual) (0-2) % Platelet Estimate (NORMAL) Hypochromasia (manual) Anisocytosis (manual) Microcytosis (manual) ESR (0-15) mm/hr PT (9.8-13.1) Seconds INR (0.9-1.2) APTT (25.6-37.1) Seconds pCO2 31 L (35-45) mm/Hg pO2 89 55 (30-55) mm/Hg HCO3 17.1 L (21-28) mmol/L ABG pH 7.30 L (7.35-7.45) ABG Total CO2 16.3 L (22-28) mmol/L ABG O2 Saturation 98.6 H (95-98) % ABG O2 Content 14.8 L (15-23) ML/dL ABG Base Excess -10.0 L (-2.0-3.0) mmol/L ABG Hemoglobin 11.1 L (11.7-17.4) g/dL ABG Carboxyhemoglobin 1.2 (0.5-1.5) % POC ABG HHb (Measured) 1.3 (0.0-5.0) % ABG Methemoglobin 3.5 H (0.0-3.0) % ABG O2 Capacity 15.0 L (16-24) mL/dL Royn Test Yes VBG pH 7.29 L (7.32-7.43) VBG pCO2 31 L (40-60) mmHg VBG HCO3 16.5 mmol/L VBG Total CO2 15.9 L (22-28) mmol/L VBG O2 Sat (Calc) 95.2 H (40-65) % VBG Base Excess -10.4 L (0.0-2.0) mmol/L VBG Potassium 4.1 (3.6-5.2) mmol/L A-a O2 Difference 22.0 mm/Hg Hgb O2 Saturation 94.0 L (95.0-98.0) % Glucose 380 H (75-110) mg/dL Lactate 1.1 (0.7-2.1) mmol/L FiO2 21.0 21.0 % Sodium 129.0 L (132-148) mmol/l Potassium (3.6-5.0) MMOL/L Chloride 93.0 L (98-107) mmol/L Carbon Dioxide (22-30) mmol/L Anion Gap (10-20) BUN (9-20) mg/dl Creatinine (0.8-1.5) mg/dl Est GFR ( Amer) Est GFR (Non-Af Amer) POC Glucose (mg/dL) 318 H (65-110) mg/dL Random Glucose (75-110) mg/dL Lactic Acid (0.7-2.1) MMOL/L Calcium (8.4-10.2) mg/dL Phosphorus (2.5-4.5) mg/dl Magnesium (1.6-2.3) MG/DL Total Bilirubin (0.2-1.3) mg/dl AST (17-59) U/L ALT (21-72) U/L Alkaline Phosphatase (38-126) U/L Total Protein (6.3-8.2) G/DL Albumin (3.5-5.0) g/dL Globulin (2.2-3.9) gm/dL Albumin/Globulin Ratio (1.0-2.1) Triglycerides (0-149) mg/DL Cholesterol (0-199) mg/dL LDL Cholesterol Direct (0-129) mg/dL HDL Cholesterol (30-70) MG/DL Lipase (23-300) U/L Venous Blood Potassium 4.1 (3.6-5.2) mmol/L Urine Color (YELLOW) Urine Clarity (Clear) Urine pH (5.0-8.0) Ur Specific [place] (1.003-1.030) Urine Protein (NEGATIVE) mg/dL Urine Glucose (UA) (Normal) mg/dL Urine Ketones (NEGATIVE) mg/dL Urine Blood (NEGATIVE) Urine Nitrate (NEGATIVE) Urine Bilirubin (NEGATIVE) Urine Urobilinogen (0.2-1.0) mg/dL Ur Leukocyte Esterase (Negative) Sj/uL Urine RBC (Auto) (0-3) /hpf Urine Microscopic WBC (0-5) /hpf Urine Opiates Screen (NEGATIVE) Urine Methadone Screen (NEGATIVE) Ur Barbiturates Screen (NEGATIVE) Ur Phencyclidine Scrn (NEGATIVE) Ur Amphetamines Screen (NEGATIVE) U Benzodiazepines Scrn (NEGATIVE) U Oth Cocaine Metabols (NEGATIVE) U Cannabinoids Screen (NEGATIVE) Influenza Typ A,B (EIA) (NEGATIVE) Blood Type Antibody Screen BBK History Checked 10/07/17 10/07/17 10/07/17 Range/Units 15:30 15:30 15:30 WBC (4.8-10.8) K/uL RBC (4.40-5.90) Mil/uL Hgb (12.0-18.0) g/dL Hct (35.0-51.0) % MCV (80.0-94.0) fl MCH (27.0-31.0) pg MCHC (33.0-37.0) g/dL RDW (11.5-14.5) % Plt Count (130-400) K/uL MPV (7.2-11.7) fl Neut % (Auto) (50.0-75.0) % Lymph % (Auto) (20.0-40.0) % [place] % (Auto) (0.0-10.0) % Eos % (Auto) (0.0-4.0) % Baso % (Auto) (0.0-2.0) % Neut # (Auto) (1.8-7.0) K/uL Lymph # (Auto) (1.0-4.3) K/uL [place] # (Auto) (0.0-0.8) K/uL Eos # (Auto) (0.0-0.7) K/uL Baso # (Auto) (0.0-0.2) K/uL Neutrophils % (Manual) (42-75) % Band Neutrophils % (0-2) % Lymphocytes % (Manual) (20-50) % Monocytes % (Manual) (0-10) % Basophils % (Manual) (0-2) % Platelet Estimate (NORMAL) Hypochromasia (manual) Anisocytosis (manual) Microcytosis (manual) ESR (0-15) mm/hr PT 11.9 (9.8-13.1) Seconds INR 1.1 (0.9-1.2) APTT 27.5 (25.6-37.1) Seconds pCO2 (35-45) mm/Hg pO2 (30-55) mm/Hg HCO3 (21-28) mmol/L ABG pH (7.35-7.45) ABG Total CO2 (22-28) mmol/L ABG O2 Saturation (95-98) % ABG O2 Content (15-23) ML/dL ABG Base Excess (-2.0-3.0) mmol/L ABG Hemoglobin (11.7-17.4) g/dL ABG Carboxyhemoglobin (0.5-1.5) % POC ABG HHb (Measured) (0.0-5.0) % ABG Methemoglobin (0.0-3.0) % ABG O2 Capacity (16-24) mL/dL Rony Test VBG pH (7.32-7.43) VBG pCO2 (40-60) mmHg VBG HCO3 mmol/L VBG Total CO2 (22-28) mmol/L VBG O2 Sat (Calc) (40-65) % VBG Base Excess (0.0-2.0) mmol/L VBG Potassium (3.6-5.2) mmol/L A-a O2 Difference mm/Hg Hgb O2 Saturation (95.0-98.0) % Glucose (75-110) mg/dL Lactate (0.7-2.1) mmol/L FiO2 % Sodium (132-148) mmol/l Potassium (3.6-5.0) MMOL/L Chloride (98-107) mmol/L Carbon Dioxide (22-30) mmol/L Anion Gap (10-20) BUN (9-20) mg/dl Creatinine (0.8-1.5) mg/dl Est GFR ( Amer) Est GFR (Non-Af Amer) POC Glucose (mg/dL) (65-110) mg/dL Random Glucose (75-110) mg/dL Lactic Acid (0.7-2.1) MMOL/L Calcium (8.4-10.2) mg/dL Phosphorus (2.5-4.5) mg/dl Magnesium (1.6-2.3) MG/DL Total Bilirubin (0.2-1.3) mg/dl AST (17-59) U/L ALT (21-72) U/L Alkaline Phosphatase (38-126) U/L Total Protein (6.3-8.2) G/DL Albumin (3.5-5.0) g/dL Globulin (2.2-3.9) gm/dL Albumin/Globulin Ratio (1.0-2.1) Triglycerides (0-149) mg/DL Cholesterol (0-199) mg/dL LDL Cholesterol Direct (0-129) mg/dL HDL Cholesterol (30-70) MG/DL Lipase (23-300) U/L Venous Blood Potassium (3.6-5.2) mmol/L Urine Color (YELLOW) Urine Clarity (Clear) Urine pH (5.0-8.0) Ur Specific [place] (1.003-1.030) Urine Protein (NEGATIVE) mg/dL Urine Glucose (UA) (Normal) mg/dL Urine Ketones (NEGATIVE) mg/dL Urine Blood (NEGATIVE) Urine Nitrate (NEGATIVE) Urine Bilirubin (NEGATIVE) Urine Urobilinogen (0.2-1.0) mg/dL Ur Leukocyte Esterase (Negative) Sj/uL Urine RBC (Auto) (0-3) /hpf Urine Microscopic WBC (0-5) /hpf Urine Opiates Screen (NEGATIVE) Urine Methadone Screen (NEGATIVE) Ur Barbiturates Screen (NEGATIVE) Ur Phencyclidine Scrn (NEGATIVE) Ur Amphetamines Screen (NEGATIVE) U Benzodiazepines Scrn (NEGATIVE) U Oth Cocaine Metabols (NEGATIVE) U Cannabinoids Screen (NEGATIVE) Influenza Typ A,B (EIA) Negative for flu a/b (NEGATIVE) Blood Type O POSITIVE Antibody Screen Negative BBK History Checked Patient has bt 10/07/17 10/07/17 10/07/17 Range/Units 15:30 15:30 15:09 WBC 14.2 H (4.8-10.8) K/uL RBC 4.13 L (4.40-5.90) Mil/uL Hgb 11.4 L (12.0-18.0) g/dL Hct 35.3 (35.0-51.0) % MCV 85.3 (80.0-94.0) fl MCH 27.5 (27.0-31.0) pg MCHC 32.3 L (33.0-37.0) g/dL RDW 13.4 (11.5-14.5) % Plt Count 186 (130-400) K/uL MPV 9.7 (7.2-11.7) fl Neut % (Auto) 91.8 H (50.0-75.0) % Lymph % (Auto) 1.9 L (20.0-40.0) % [place] % (Auto) 6.0 (0.0-10.0) % Eos % (Auto) 0.0 (0.0-4.0) % Baso % (Auto) 0.3 (0.0-2.0) % Neut # (Auto) 13.1 H (1.8-7.0) K/uL Lymph # (Auto) 0.3 L (1.0-4.3) K/uL [place] # (Auto) 0.9 H (0.0-0.8) K/uL Eos # (Auto) 0.0 (0.0-0.7) K/uL Baso # (Auto) 0.0 (0.0-0.2) K/uL Neutrophils % (Manual) 80 H (42-75) % Band Neutrophils % 4 H (0-2) % Lymphocytes % (Manual) 6 L (20-50) % Monocytes % (Manual) 9 (0-10) % Basophils % (Manual) 1 (0-2) % Platelet Estimate Normal (NORMAL) Hypochromasia (manual) Slight Anisocytosis (manual) Slight Microcytosis (manual) Slight ESR 38 H (0-15) mm/hr PT (9.8-13.1) Seconds INR (0.9-1.2) APTT (25.6-37.1) Seconds pCO2 (35-45) mm/Hg pO2 (30-55) mm/Hg HCO3 (21-28) mmol/L ABG pH (7.35-7.45) ABG Total CO2 (22-28) mmol/L ABG O2 Saturation (95-98) % ABG O2 Content (15-23) ML/dL ABG Base Excess (-2.0-3.0) mmol/L ABG Hemoglobin (11.7-17.4) g/dL ABG Carboxyhemoglobin (0.5-1.5) % POC ABG HHb (Measured) (0.0-5.0) % ABG Methemoglobin (0.0-3.0) % ABG O2 Capacity (16-24) mL/dL Rony Test VBG pH (7.32-7.43) VBG pCO2 (40-60) mmHg VBG HCO3 mmol/L VBG Total CO2 (22-28) mmol/L VBG O2 Sat (Calc) (40-65) % VBG Base Excess (0.0-2.0) mmol/L VBG Potassium (3.6-5.2) mmol/L A-a O2 Difference mm/Hg Hgb O2 Saturation (95.0-98.0) % Glucose (75-110) mg/dL Lactate (0.7-2.1) mmol/L FiO2 % Sodium 133 (132-148) mmol/l Potassium 4.1 (3.6-5.0) MMOL/L Chloride 95 L (98-107) mmol/L Carbon Dioxide 13 L (22-30) mmol/L Anion Gap 29 H (10-20) BUN 17 (9-20) mg/dl Creatinine 1.2 (0.8-1.5) mg/dl Est GFR ( Amer) > 60 Est GFR (Non-Af Amer) > 60 POC Glucose (mg/dL) 301 H (65-110) mg/dL Random Glucose 372 H (75-110) mg/dL Lactic Acid (0.7-2.1) MMOL/L Calcium 9.5 (8.4-10.2) mg/dL Phosphorus 2.5 (2.5-4.5) mg/dl Magnesium 1.4 L (1.6-2.3) MG/DL Total Bilirubin 0.6 (0.2-1.3) mg/dl AST 17 (17-59) U/L ALT 27 (21-72) U/L Alkaline Phosphatase 93 (38-126) U/L Total Protein 7.2 (6.3-8.2) G/DL Albumin 4.0 (3.5-5.0) g/dL Globulin 3.2 (2.2-3.9) gm/dL Albumin/Globulin Ratio 1.2 (1.0-2.1) Triglycerides (0-149) mg/DL Cholesterol (0-199) mg/dL LDL Cholesterol Direct (0-129) mg/dL HDL Cholesterol (30-70) MG/DL Lipase 41 (23-300) U/L Venous Blood Potassium (3.6-5.2) mmol/L Urine Color (YELLOW) Urine Clarity (Clear) Urine pH (5.0-8.0) Ur Specific [place] (1.003-1.030) Urine Protein (NEGATIVE) mg/dL Urine Glucose (UA) (Normal) mg/dL Urine Ketones (NEGATIVE) mg/dL Urine Blood (NEGATIVE) Urine Nitrate (NEGATIVE) Urine Bilirubin (NEGATIVE) Urine Urobilinogen (0.2-1.0) mg/dL Ur Leukocyte Esterase (Negative) Sj/uL Urine RBC (Auto) (0-3) /hpf Urine Microscopic WBC (0-5) /hpf Urine Opiates Screen (NEGATIVE) Urine Methadone Screen (NEGATIVE) Ur Barbiturates Screen (NEGATIVE) Ur Phencyclidine Scrn (NEGATIVE) Ur Amphetamines Screen (NEGATIVE) U Benzodiazepines Scrn (NEGATIVE) U Oth Cocaine Metabols (NEGATIVE) U Cannabinoids Screen (NEGATIVE) Influenza Typ A,B (EIA) (NEGATIVE) Blood Type Antibody Screen BBK History Checked Laboratory Results - last 24 hr 10/07/17 10/07/17 10/07/17 15:09 15:30 15:30 WBC 14.2 H RBC 4.13 L Hgb 11.4 L Hct 35.3 MCV 85.3 MCH 27.5 MCHC 32.3 L RDW 13.4 Plt Count 186 MPV 9.7 Neut % (Auto) 91.8 H Lymph % (Auto) 1.9 L [place] % (Auto) 6.0 Eos % (Auto) 0.0 Baso % (Auto) 0.3 Neut # (Auto) 13.1 H Lymph # (Auto) 0.3 L [place] # (Auto) 0.9 H Eos # (Auto) 0.0 Baso # (Auto) 0.0 Neutrophils % (Manual) 80 H Band Neutrophils % 4 H Lymphocytes % (Manual) 6 L Monocytes % (Manual) 9 Basophils % (Manual) 1 Platelet Estimate Normal Hypochromasia (manual) Slight Anisocytosis (manual) Slight Microcytosis (manual) Slight ESR 38 H PT INR APTT pCO2 pO2 HCO3 ABG pH ABG Total CO2 ABG O2 Saturation ABG O2 Content ABG Base Excess ABG Hemoglobin ABG Carboxyhemoglobin POC ABG HHb (Measured) ABG Methemoglobin ABG O2 Capacity Rony Test VBG pH VBG pCO2 VBG HCO3 VBG Total CO2 VBG O2 Sat (Calc) VBG Base Excess VBG Potassium A-a O2 Difference Hgb O2 Saturation Glucose Lactate FiO2 Sodium 133 Potassium 4.1 Chloride 95 L Carbon Dioxide 13 L Anion Gap 29 H BUN 17 Creatinine 1.2 Est GFR ( Amer) > 60 Est GFR (Non-Af Amer) > 60 POC Glucose (mg/dL) 301 H Random Glucose 372 H Lactic Acid Calcium 9.5 Phosphorus 2.5 Magnesium 1.4 L Total Bilirubin 0.6 AST 17 ALT 27 Alkaline Phosphatase 93 Total Protein 7.2 Albumin 4.0 Globulin 3.2 Albumin/Globulin Ratio 1.2 Triglycerides Cholesterol LDL Cholesterol Direct HDL Cholesterol Lipase 41 Venous Blood Potassium Urine Color Urine Clarity Urine pH Ur Specific [place] Urine Protein Urine Glucose (UA) Urine Ketones Urine Blood Urine Nitrate Urine Bilirubin Urine Urobilinogen Ur Leukocyte Esterase Urine RBC (Auto) Urine Microscopic WBC Urine Opiates Screen Urine Methadone Screen Ur Barbiturates Screen Ur Phencyclidine Scrn Ur Amphetamines Screen U Benzodiazepines Scrn U Oth Cocaine Metabols U Cannabinoids Screen Influenza Typ A,B (EIA) Blood Type Antibody Screen BBK History Checked 10/07/17 10/07/17 10/07/17 15:30 15:30 15:30 WBC RBC Hgb Hct MCV MCH MCHC RDW Plt Count MPV Neut % (Auto) Lymph % (Auto) [place] % (Auto) Eos % (Auto) Baso % (Auto) Neut # (Auto) Lymph # (Auto) [place] # (Auto) Eos # (Auto) Baso # (Auto) Neutrophils % (Manual) Band Neutrophils % Lymphocytes % (Manual) Monocytes % (Manual) Basophils % (Manual) Platelet Estimate Hypochromasia (manual) Anisocytosis (manual) Microcytosis (manual) ESR PT 11.9 INR 1.1 APTT 27.5 pCO2 pO2 HCO3 ABG pH ABG Total CO2 ABG O2 Saturation ABG O2 Content ABG Base Excess ABG Hemoglobin ABG Carboxyhemoglobin POC ABG HHb (Measured) ABG Methemoglobin ABG O2 Capacity Rony Test VBG pH VBG pCO2 VBG HCO3 VBG Total CO2 VBG O2 Sat (Calc) VBG Base Excess VBG Potassium A-a O2 Difference Hgb O2 Saturation Glucose Lactate FiO2 Sodium Potassium Chloride Carbon Dioxide Anion Gap BUN Creatinine Est GFR ( Amer) Est GFR (Non-Af Amer) POC Glucose (mg/dL) Random Glucose Lactic Acid Calcium Phosphorus Magnesium Total Bilirubin AST ALT Alkaline Phosphatase Total Protein Albumin Globulin Albumin/Globulin Ratio Triglycerides Cholesterol LDL Cholesterol Direct HDL Cholesterol Lipase Venous Blood Potassium Urine Color Urine Clarity Urine pH Ur Specific [place] Urine Protein Urine Glucose (UA) Urine Ketones Urine Blood Urine Nitrate Urine Bilirubin Urine Urobilinogen Ur Leukocyte Esterase Urine RBC (Auto) Urine Microscopic WBC Urine Opiates Screen Urine Methadone Screen Ur Barbiturates Screen Ur Phencyclidine Scrn Ur Amphetamines Screen U Benzodiazepines Scrn U Oth Cocaine Metabols U Cannabinoids Screen Influenza Typ A,B (EIA) Negative for flu a/b Blood Type O POSITIVE Antibody Screen Negative BBK History Checked Patient has bt 10/07/17 10/07/17 10/07/17 15:50 16:28 17:26 WBC RBC Hgb Hct MCV MCH MCHC RDW Plt Count MPV Neut % (Auto) Lymph % (Auto) [place] % (Auto) Eos % (Auto) Baso % (Auto) Neut # (Auto) Lymph # (Auto) [place] # (Auto) Eos # (Auto) Baso # (Auto) Neutrophils % (Manual) Band Neutrophils % Lymphocytes % (Manual) Monocytes % (Manual) Basophils % (Manual) Platelet Estimate Hypochromasia (manual) Anisocytosis (manual) Microcytosis (manual) ESR PT INR APTT pCO2 31 L pO2 55 89 HCO3 17.1 L ABG pH 7.30 L ABG Total CO2 16.3 L ABG O2 Saturation 98.6 H ABG O2 Content 14.8 L ABG Base Excess -10.0 L ABG Hemoglobin 11.1 L ABG Carboxyhemoglobin 1.2 POC ABG HHb (Measured) 1.3 ABG Methemoglobin 3.5 H ABG O2 Capacity 15.0 L Rony Test Yes VBG pH 7.29 L VBG pCO2 31 L VBG HCO3 16.5 VBG Total CO2 15.9 L VBG O2 Sat (Calc) 95.2 H VBG Base Excess -10.4 L VBG Potassium 4.1 A-a O2 Difference 22.0 Hgb O2 Saturation 94.0 L Glucose 380 H Lactate 1.1 FiO2 21.0 21.0 Sodium 129.0 L Potassium Chloride 93.0 L Carbon Dioxide Anion Gap BUN Creatinine Est GFR ( Amer) Est GFR (Non-Af Amer) POC Glucose (mg/dL) 318 H Random Glucose Lactic Acid Calcium Phosphorus Magnesium Total Bilirubin AST ALT Alkaline Phosphatase Total Protein Albumin Globulin Albumin/Globulin Ratio Triglycerides Cholesterol LDL Cholesterol Direct HDL Cholesterol Lipase Venous Blood Potassium 4.1 Urine Color Urine Clarity Urine pH Ur Specific [place] Urine Protein Urine Glucose (UA) Urine Ketones Urine Blood Urine Nitrate Urine Bilirubin Urine Urobilinogen Ur Leukocyte Esterase Urine RBC (Auto) Urine Microscopic WBC Urine Opiates Screen Urine Methadone Screen Ur Barbiturates Screen Ur Phencyclidine Scrn Ur Amphetamines Screen U Benzodiazepines Scrn U Oth Cocaine Metabols U Cannabinoids Screen Influenza Typ A,B (EIA) Blood Type Antibody Screen BBK History Checked 10/07/17 10/07/17 10/07/17 17:30 18:45 19:00 WBC RBC Hgb Hct MCV MCH MCHC RDW Plt Count MPV Neut % (Auto) Lymph % (Auto) [place] % (Auto) Eos % (Auto) Baso % (Auto) Neut # (Auto) Lymph # (Auto) [place] # (Auto) Eos # (Auto) Baso # (Auto) Neutrophils % (Manual) Band Neutrophils % Lymphocytes % (Manual) Monocytes % (Manual) Basophils % (Manual) Platelet Estimate Hypochromasia (manual) Anisocytosis (manual) Microcytosis (manual) ESR PT INR APTT pCO2 pO2 HCO3 ABG pH ABG Total CO2 ABG O2 Saturation ABG O2 Content ABG Base Excess ABG Hemoglobin ABG Carboxyhemoglobin POC ABG HHb (Measured) ABG Methemoglobin ABG O2 Capacity [place] Test VBG pH VBG pCO2 VBG HCO3 VBG Total CO2 VBG O2 Sat (Calc) VBG Base Excess VBG Potassium A-a O2 Difference Hgb O2 Saturation Glucose Lactate FiO2 Sodium 135 Potassium 3.3 L Chloride 104 Carbon Dioxide 16 L Anion Gap 18 BUN 18 Creatinine 1.3 Est GFR ( Amer) > 60 Est GFR (Non-Af Amer) > 60 POC Glucose (mg/dL) 246 H Random Glucose 255 H Lactic Acid Calcium 8.1 L Phosphorus Magnesium 1.6 Total Bilirubin AST ALT Alkaline Phosphatase Total Protein Albumin Globulin Albumin/Globulin Ratio Triglycerides Cholesterol LDL Cholesterol Direct HDL Cholesterol Lipase Venous Blood Potassium Urine Color Yellow Urine Clarity Clear Urine pH 6.0 Ur Specific [place] 1.020 Urine Protein 100 Urine Glucose (UA) >=500 Urine Ketones 80 Urine Blood Small Urine Nitrate Negative Urine Bilirubin Negative Urine Urobilinogen 0.2-1.0 Ur Leukocyte Esterase Neg Urine RBC (Auto) 6 H Urine Microscopic WBC < 1 Urine Opiates Screen Urine Methadone Screen Ur Barbiturates Screen Ur Phencyclidine Scrn Ur Amphetamines Screen U Benzodiazepines Scrn U Oth Cocaine Metabols U Cannabinoids Screen Influenza Typ A,B (EIA) Blood Type Antibody Screen BBK History Checked 10/07/17 10/07/17 10/07/17 19:58 20:54 20:54 WBC RBC Hgb Hct MCV MCH MCHC RDW Plt Count MPV Neut % (Auto) Lymph % (Auto) [place] % (Auto) Eos % (Auto) Baso % (Auto) Neut # (Auto) Lymph # (Auto) [place] # (Auto) Eos # (Auto) Baso # (Auto) Neutrophils % (Manual) Band Neutrophils % Lymphocytes % (Manual) Monocytes % (Manual) Basophils % (Manual) Platelet Estimate Hypochromasia (manual) Anisocytosis (manual) Microcytosis (manual) ESR PT INR APTT pCO2 pO2 HCO3 ABG pH ABG Total CO2 ABG O2 Saturation ABG O2 Content ABG Base Excess ABG Hemoglobin ABG Carboxyhemoglobin POC ABG HHb (Measured) ABG Methemoglobin ABG O2 Capacity Rony Test VBG pH VBG pCO2 VBG HCO3 VBG Total CO2 VBG O2 Sat (Calc) VBG Base Excess VBG Potassium A-a O2 Difference Hgb O2 Saturation Glucose Lactate FiO2 Sodium 135 Potassium 3.5 L Chloride 105 Carbon Dioxide 19 L Anion Gap 15 BUN 18 Creatinine 1.2 Est GFR ( Amer) > 60 Est GFR (Non-Af Amer) > 60 POC Glucose (mg/dL) 205 H Random Glucose 225 H Lactic Acid 1.0 Calcium 8.0 L Phosphorus 3.3 Magnesium Total Bilirubin AST ALT Alkaline Phosphatase Total Protein Albumin Globulin Albumin/Globulin Ratio Triglycerides Cholesterol LDL Cholesterol Direct HDL Cholesterol Lipase Venous Blood Potassium Urine Color Urine Clarity Urine pH Ur Specific [place] Urine Protein Urine Glucose (UA) Urine Ketones Urine Blood Urine Nitrate Urine Bilirubin Urine Urobilinogen Ur Leukocyte Esterase Urine RBC (Auto) Urine Microscopic WBC Urine Opiates Screen Urine Methadone Screen Ur Barbiturates Screen Ur Phencyclidine Scrn Ur Amphetamines Screen U Benzodiazepines Scrn U Oth Cocaine Metabols U Cannabinoids Screen Influenza Typ A,B (EIA) Blood Type Antibody Screen BBK History Checked 10/07/17 10/07/17 10/08/17 21:34 22:38 00:02 WBC RBC Hgb Hct MCV MCH MCHC RDW Plt Count MPV Neut % (Auto) Lymph % (Auto) [place] % (Auto) Eos % (Auto) Baso % (Auto) Neut # (Auto) Lymph # (Auto) [place] # (Auto) Eos # (Auto) Baso # (Auto) Neutrophils % (Manual) Band Neutrophils % Lymphocytes % (Manual) Monocytes % (Manual) Basophils % (Manual) Platelet Estimate Hypochromasia (manual) Anisocytosis (manual) Microcytosis (manual) ESR PT INR APTT pCO2 pO2 HCO3 ABG pH ABG Total CO2 ABG O2 Saturation ABG O2 Content ABG Base Excess ABG Hemoglobin ABG Carboxyhemoglobin POC ABG HHb (Measured) ABG Methemoglobin ABG O2 Capacity Rony Test VBG pH VBG pCO2 VBG HCO3 VBG Total CO2 VBG O2 Sat (Calc) VBG Base Excess VBG Potassium A-a O2 Difference Hgb O2 Saturation Glucose Lactate FiO2 Sodium Potassium Chloride Carbon Dioxide Anion Gap BUN Creatinine Est GFR ( Amer) Est GFR (Non-Af Amer) POC Glucose (mg/dL) 203 H 167 H 126 H Random Glucose Lactic Acid Calcium Phosphorus Magnesium Total Bilirubin AST ALT Alkaline Phosphatase Total Protein Albumin Globulin Albumin/Globulin Ratio Triglycerides Cholesterol LDL Cholesterol Direct HDL Cholesterol Lipase Venous Blood Potassium Urine Color Urine Clarity Urine pH Ur Specific [place] Urine Protein Urine Glucose (UA) Urine Ketones Urine Blood Urine Nitrate Urine Bilirubin Urine Urobilinogen Ur Leukocyte Esterase Urine RBC (Auto) Urine Microscopic WBC Urine Opiates Screen Urine Methadone Screen Ur Barbiturates Screen Ur Phencyclidine Scrn Ur Amphetamines Screen U Benzodiazepines Scrn U Oth Cocaine Metabols U Cannabinoids Screen Influenza Typ A,B (EIA) Blood Type Antibody Screen BBK History Checked 10/08/17 10/08/17 10/08/17 01:15 05:00 05:00 WBC 9.7 RBC 3.75 L Hgb 10.4 L Hct 32.0 L MCV 85.2 MCH 27.7 MCHC 32.5 L RDW 13.5 Plt Count 152 MPV Neut % (Auto) Lymph % (Auto) [place] % (Auto) Eos % (Auto) Baso % (Auto) Neut # (Auto) Lymph # (Auto) [place] # (Auto) Eos # (Auto) Baso # (Auto) Neutrophils % (Manual) Band Neutrophils % Lymphocytes % (Manual) Monocytes % (Manual) Basophils % (Manual) Platelet Estimate Hypochromasia (manual) Anisocytosis (manual) Microcytosis (manual) ESR PT INR APTT pCO2 pO2 HCO3 ABG pH ABG Total CO2 ABG O2 Saturation ABG O2 Content ABG Base Excess ABG Hemoglobin ABG Carboxyhemoglobin POC ABG HHb (Measured) ABG Methemoglobin ABG O2 Capacity Rony Test VBG pH VBG pCO2 VBG HCO3 VBG Total CO2 VBG O2 Sat (Calc) VBG Base Excess VBG Potassium A-a O2 Difference Hgb O2 Saturation Glucose Lactate FiO2 Sodium 136 Potassium 3.7 Chloride 108 H Carbon Dioxide 22 Anion Gap 10 BUN 19 Creatinine 1.1 Est GFR ( Amer) > 60 Est GFR (Non-Af Amer) > 60 POC Glucose (mg/dL) Random Glucose 141 H Lactic Acid Calcium 8.0 L Phosphorus 2.0 L Magnesium 1.6 Total Bilirubin 0.3 AST 31 ALT 33 Alkaline Phosphatase 58 Total Protein 5.6 L Albumin 2.6 L D Globulin 3.0 Albumin/Globulin Ratio 0.9 L Triglycerides 54 Cholesterol 146 LDL Cholesterol Direct 95 HDL Cholesterol 38 Lipase Venous Blood Potassium Urine Color Urine Clarity Urine pH Ur Specific [place] Urine Protein Urine Glucose (UA) Urine Ketones Urine Blood Urine Nitrate Urine Bilirubin Urine Urobilinogen Ur Leukocyte Esterase Urine RBC (Auto) Urine Microscopic WBC Urine Opiates Screen Negative Urine Methadone Screen Negative Ur Barbiturates Screen Negative Ur Phencyclidine Scrn Negative Ur Amphetamines Screen Negative U Benzodiazepines Scrn Negative U Oth Cocaine Metabols Negative U Cannabinoids Screen Negative Influenza Typ A,B (EIA) Blood Type Antibody Screen BBK History Checked EKG/Cardiology Studies: Cardiology / EKG Studies 10/07/17 15:08 ELECTROCARDIOGRAM Stat Comment: Mode Of Transportation: Reason For Exam: sepsis Fingerstick Blood Sugar Results: 97 Review of Systems - Review of Systems All systems: reviewed and no additional remarkable complaints except (as above) Critical Care Progress Note - Nutrition Nutrition: Nutrition Category Date Time Status Consistent Carbohydrate [DIET] Diets 10/08/17 Breakfast Active
--- NOTE | 2017-10-08 08:47 | CP.PCM.PN ---
<Jairo Valadez - Last Filed: 10/08/17 17:11> Subjective - Date & Time of Evaluation Date of Evaluation: 10/08/17 Time of Evaluation: 08:40 - Subjective Subjective: Progress Note for Hospitalist Dr. Healy 42 y.o male with hx of IDDM and foot ulceration seen and evaluated at bedside. Patient is seen laying comfortably in bed, in NAD, and AA0x3. Patient reports that he is doing much better today. He reports that he had some chills and feverish last night which he was given Tylenol and hasn't felt chills or feverish since. He denies nausea, vomiting, or fever this morning. He was able to eat a sandwich last night without vomiting. Patient denies cp/d/sob/urinary problems/bowel movements. Objective - Vital Signs/Intake and Output Vital Signs (last 24 hours): Temp Pulse Resp BP Pulse Ox 98.2 F 96 H 16 101/65 98 10/08/17 08:00 10/08/17 08:00 10/08/17 08:00 10/08/17 08:00 10/08/17 08:00 Intake and Output: 10/08/17 10/08/17 06:59 18:59 Intake Total 2256 Output Total 400 Balance 1856 - Medications Medications: Current Medications Acetaminophen (Tylenol 325mg Tab) 650 mg PO Q4 PRN PRN Reason: Fever >100.4 F Last Admin: 10/08/17 02:27 Dose: 650 mg Bacitracin (Bacitracin Oint) 1 applic TOP ONCE TASHA Dextrose (Dextrose 50% Inj) 0 ml IV STAT PRN; Protocol PRN Reason: Hypoglycemia Protocol Dextrose (Glutose 15) 0 gm PO ONCE PRN; Protocol PRN Reason: Hypoglycemia Protocol Enoxaparin Sodium (Lovenox) 40 mg SC DAILY TASHA PRN Reason: Protocol Glucagon (Glucagen Diagnostic Kit) 0 mg IM STAT PRN; Protocol PRN Reason: Hypoglycemia Protocol Piperacillin Sod/Tazobactam (Sod 3.375 gm/ Sodium Chloride) 50 mls @ 50 mls/hr IVPB Q6 TASHA PRN Reason: Protocol Last Admin: 10/08/17 04:00 Dose: 50 mls/hr Vancomycin HCl 1 gm/ Sodium (Chloride) 250 mls @ 166.667 mls/hr IVPB Q12@0600, 1800 TASHA PRN Reason: Protocol Last Admin: 10/08/17 05:25 Dose: 166.667 mls/hr Sodium Chloride (Sodium Chloride 0.9%) 1,000 mls @ 200 mls/hr IV .Q5H [facility] Stop: 10/09/17 01:14 Last Admin: 10/08/17 05:33 Dose: 200 mls/hr Insulin Detemir (Levemir) 20 units SC HS [facility] Last Admin: 10/07/17 22:36 Dose: 20 units Insulin Human Regular (Humulin R) 0 units SC ACHS [facility] Last Admin: 10/08/17 07:31 Dose: Not Given Insulin Human Regular (Humulin R) 14 units SC ACB [facility] Insulin Human Regular (Humulin R) 10 units SC ACD [facility] - Labs Labs: 10/08/17 05:00 10/08/17 05:00 PT 11.9 Seconds (9.8-13.1) 10/07/17 15:30 INR 1.1 (0.9-1.2) 10/07/17 15:30 APTT 27.5 Seconds (25.6-37.1) 10/07/17 15:30 - Constitutional Appears: Well, Non-toxic, No Acute Distress - Head Exam Head Exam: ATRAUMATIC, NORMAL INSPECTION - Eye Exam Eye Exam: EOMI, Normal appearance - Neck Exam Neck Exam: Normal Inspection - Respiratory Exam Respiratory Exam: Clear to Ausculation Bilateral, NORMAL BREATHING PATTERN - Cardiovascular Exam Cardiovascular Exam: Tachycardia - GI/Abdominal Exam GI & Abdominal Exam: Soft, Normal Bowel Sounds. absent: Distended, Tenderness - Extremities Exam Extremities Exam: absent: Calf Tenderness Additional comments: Dressing to lower extremity is c/d/i without strikethrough CFT delayed Temperature gradient WNL - Back Exam Back Exam: NORMAL INSPECTION. absent: CVA tenderness (L), CVA tenderness (R) - Neurological Exam Neurological Exam: Alert, Awake, Oriented x3 - Psychiatric Exam Psychiatric exam: Normal Affect, Normal Mood. absent: Suicidal Ideation - Skin Skin Exam: Dry, Intact, Normal Color, Warm Assessment and Plan - Assessment and Plan (Free Text) Assessment: 42 y.o male with hx of IDDM and foot ulceration seen for DKA and sepsis. Plan: (1) DKA (diabetic ketoacidosis) Status: Acute IVF hydration - change to NS 200 ml/hour q1 Accucheck continue to monitor electrolytes d/c Insulin drip Endo consult:Dr Cee Regimen: Insulin Human Regular 14 units SC ACB TASHA Insulin Human Regular 10 units SC ACD TASHA Insulin Human Nph 16 units SC HS TASHA (2) Sepsis ? sec to Left Foot Ulcer r/o other infections Status: Acute Pt has no other sxs except for the foot ulcer CXR : Negative Influenza : Negative Blood c/s, Urine c/s Wound c/s -pending Preliminary Gram + cocci Lactic acid normal Procalcitonin normal ID consult Dr. 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 Hypertrophic healing of prior posterior superior calcaneal fracture podiatry ordered MRI to r/o OM Wound culture C/w abx IV vanco and Zosyn Tetanus toxoid (4) Hypophosphastemia Status: Acute Phosphorus/Potassium/Sodium (Neutra-Phos) 1 pkt once given (5) DVT prophylaxis Status: Acute Lovenox (6) Diet Diabetic Diet (7) Hypomagnesemia Status: Resolved given Mag Sulfate 2 grams <Vivian Healy - Last Filed: 10/08/17 17:39> Objective - Vital Signs/Intake and Output Vital Signs (last 24 hours): Temp Pulse Resp BP Pulse Ox 100.4 F H 119 H 18 105/47 L 99 10/08/17 16:43 10/08/17 12:00 10/08/17 12:00 10/08/17 12:00 10/08/17 12:00 Intake and Output: 10/08/17 10/08/17 06:59 18:59 Intake Total 2256 1850 Output Total 400 600 Balance 1856 1250 - Medications Medications: Current Medications Acetaminophen (Tylenol 325mg Tab) 650 mg PO Q4 PRN PRN Reason: Fever >100.4 F Last Admin: 10/08/17 16:43 Dose: 650 mg Bacitracin (Bacitracin Oint) 1 applic TOP ONCE TASHA Dextrose (Dextrose 50% Inj) 0 ml IV STAT PRN; Protocol PRN Reason: Hypoglycemia Protocol Dextrose (Glutose 15) 0 gm PO ONCE PRN; Protocol PRN Reason: Hypoglycemia Protocol Enoxaparin Sodium (Lovenox) 40 mg SC DAILY TASHA PRN Reason: Protocol Last Admin: 10/08/17 08:49 Dose: 40 mg Glucagon (Glucagen Diagnostic Kit) 0 mg IM STAT PRN; Protocol PRN Reason: Hypoglycemia Protocol Piperacillin Sod/Tazobactam (Sod 3.375 gm/ Sodium Chloride) 50 mls @ 50 mls/hr IVPB Q6 TASHA PRN Reason: Protocol Last Admin: 10/08/17 16:50 Dose: 50 mls/hr Vancomycin HCl 1 gm/ Sodium (Chloride) 250 mls @ 166.667 mls/hr IVPB Q12@0600, 1800 TASHA PRN Reason: Protocol Last Admin: 10/08/17 05:25 Dose: 166.667 mls/hr Sodium Chloride (Sodium Chloride 0.9%) 1,000 mls @ 200 mls/hr IV .Q5H [facility] Stop: 10/09/17 01:14 Last Admin: 10/08/17 13:14 Dose: 200 mls/hr Insulin Human NPH (Humulin N) 16 units SC HS [facility] Insulin Human Regular (Humulin R) 0 units SC ACHS [facility] Last Admin: 10/08/17 16:55 Dose: Not Given Insulin Human Regular (Humulin R) 14 units SC ACB [facility] Last Admin: 10/08/17 08:49 Dose: 14 units Insulin Human Regular (Humulin R) 10 units SC ACD [facility] Last Admin: 10/08/17 16:56 Dose: 10 units Phenylephrine HCl ([place]-Synephrine 0.25% Nasal [place]) 1 spry ANNIE Q4 PRN PRN Reason: Nasal congestion Sodium Chloride ([place] Nasal [place]) 2 sprays ANNIE Q4 PRN PRN Reason: Nasal congestion - Labs Labs: 10/08/17 05:00 10/08/17 05:00 PT 11.9 Seconds (9.8-13.1) 10/07/17 15:30 INR 1.1 (0.9-1.2) 10/07/17 15:30 APTT 27.5 Seconds (25.6-37.1) 10/07/17 15:30 Assessment and Plan (1) DKA (diabetic ketoacidosis) Status: Acute (2) Sepsis Status: Acute (3) DM type 2 causing leg or foot ulcer Status: Chronic (4) Hypomagnesemia Status: Acute (5) DVT prophylaxis Status: Acute Attending/Attestation - Attestation I have personally seen and examined this patient.: Yes I have fully participated in the care of the patient.: Yes I have reviewed all pertinent clinical information, including history, physical exam and plan: Yes
[2017-10-08] MEDS: Enoxaparin 40 mg Syringe SC SCH (08:49)
--- NOTE | 2017-10-08 09:07 | CARD ---
APPROVED REPORT EKG Measurement Heart [id number] <Conclusion> Sinus tachycardia Otherwise normal ECG
--- NOTE | 2017-10-08 09:28 | CP.PCM.PN ---
Subjective - Date & Time of Evaluation Date of Evaluation: 10/08/17 Time of Evaluation: 09:26 - Subjective Subjective: 42 year old male seen at bedside for left foot ulceration at level of sub-third metatarsal head. Patient states that he feels well today and that the pain in his foot is decreased from yesterday. Is AAO x 3 at time of visit, eating breakfast. Denies any acute overnight events or any new pedal complaints. Denies any recent N/V/F/C/CP/SOB/D/posterior calf pain when squeezed. Objective - Vital Signs/Intake and Output Vital Signs (last 24 hours): Temp Pulse Resp BP Pulse Ox 98.2 F 96 H 16 101/65 98 10/08/17 08:00 10/08/17 08:00 10/08/17 08:00 10/08/17 08:00 10/08/17 08:00 Intake and Output: 10/08/17 10/08/17 06:59 18:59 Intake Total 2256 760 Output Total 400 Balance 1856 760 - Medications Medications: Current Medications Acetaminophen (Tylenol 325mg Tab) 650 mg PO Q4 PRN PRN Reason: Fever >100.4 F Last Admin: 10/08/17 02:27 Dose: 650 mg Bacitracin (Bacitracin Oint) 1 applic TOP ONCE TASHA Dextrose (Dextrose 50% Inj) 0 ml IV STAT PRN; Protocol PRN Reason: Hypoglycemia Protocol Dextrose (Glutose 15) 0 gm PO ONCE PRN; Protocol PRN Reason: Hypoglycemia Protocol Enoxaparin Sodium (Lovenox) 40 mg SC DAILY TASHA PRN Reason: Protocol Last Admin: 10/08/17 08:49 Dose: 40 mg Glucagon (Glucagen Diagnostic Kit) 0 mg IM STAT PRN; Protocol PRN Reason: Hypoglycemia Protocol Piperacillin Sod/Tazobactam (Sod 3.375 gm/ Sodium Chloride) 50 mls @ 50 mls/hr IVPB Q6 TASHA PRN Reason: Protocol Last Admin: 10/08/17 04:00 Dose: 50 mls/hr Vancomycin HCl 1 gm/ Sodium (Chloride) 250 mls @ 166.667 mls/hr IVPB Q12@0600, 1800 TASHA PRN Reason: Protocol Last Admin: 10/08/17 05:25 Dose: 166.667 mls/hr Sodium Chloride (Sodium Chloride 0.9%) 1,000 mls @ 200 mls/hr IV .Q5H [facility] Stop: 10/09/17 01:14 Last Admin: 10/08/17 05:33 Dose: 200 mls/hr Insulin Detemir (Levemir) 20 units SC HS [facility] Last Admin: 10/07/17 22:36 Dose: 20 units Insulin Human Regular (Humulin R) 0 units SC ACHS [facility] Last Admin: 10/08/17 07:31 Dose: Not Given Insulin Human Regular (Humulin R) 14 units SC ACB [facility] Last Admin: 10/08/17 08:49 Dose: 14 units Insulin Human Regular (Humulin R) 10 units SC ACD [facility] - Labs Labs: 10/08/17 05:00 10/08/17 05:00 PT 11.9 Seconds (9.8-13.1) 10/07/17 15:30 INR 1.1 (0.9-1.2) 10/07/17 15:30 APTT 27.5 Seconds (25.6-37.1) 10/07/17 15:30 - Constitutional Appears: Well, Non-toxic, No Acute Distress - Extremities Exam Additional comments: Vasc: DP and PT faintly palpable, temperature gradient warm to cool, no edema noted, CFT delayed to digits Ortho: tenderness with palpation to the ulceration site, MM is 4/5 in all four compartments in dorsiflexion, plantarflexion, inversion and eversion Neuro: Epicritic and protective sensation grossly intact b/l Derm: ulceration noted to left foot a sub met 3 measuring approximately 1.5 x 1 cm x .4 cm. Ulceration wound base is mixture of granular and fibrotic tissue with intact hyperkeratotic rim, circumferential undermining noted. Minimal purulent drainage noted as well as mild malodor. Periwound is hyperkeratotic and callused; no tunneling or tracking appreciated; no fluctanance noted. - Neurological Exam Neurological Exam: Alert, Awake, Oriented x3 - Psychiatric Exam Psychiatric exam: Normal Affect, Normal Mood Assessment and Plan - Assessment and Plan (Free Text) Assessment: 42 year old male seen at bedside for infected plantar left foot ulceration Plan: Patient seen and evaluated at bedside Plan discussed with attending Dr. Davies Temperature last night 101.4 F Absent leukocytosis 10/07 xray left foot: No signs of OM F/u wound cx left foot MRI ordered to r/o OM left foot Continue IV abx per ID Wound dressed with bacitracin, DSD No plan for surgical intervention at this time Podiatry will continue to follow while patient in house
--- NOTE | 2017-10-08 10:17 | CON ---
ENDOCRINOLOGY CONSULT DATE: LOCATION: In ICU room 421. HISTORY OF PRESENT ILLNESS: This is a 42-year-old male with known history of type 2 insulin-requiring diabetes, currently off insulin therapy and admitted with fever and associated with marked hyperglycemic accelerations and is being referred now for diabetic evaluation and management. PAST MEDICAL HISTORY: History of type 2 insulin-requiring diabetes, previously on Levemir taken as 12 units subcutaneously at bedtime daily, but ran out of his medications due to financial constraints and loss of medical insurance. He was also on Januvia taken as 100 mg daily and metformin as 1000 mg b.i.d., history of hypertension, and dyslipidemia. 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 FAMILY HISTORY: Positive for diabetes and hypertension. SOCIAL HISTORY: The patient admits to smoking half a pack a day for many years. He has a supportive family otherwise with no other illicit drug use. REVIEW OF SYSTEMS: Admits to generalized body weakness with increasing bouts of dizziness and lightheadedness and visual blurring, worse in the last few days prior to admission. No chest pains or palpitations or PND. His oral intake has been variable with nausea, dyspepsia and vague upper abdominal pains with episodic vomiting episodes. Also admits to marked polyuria, nocturia, polydipsia, and about a 5-pound or so weight loss. PHYSICAL EXAMINATION: GENERAL: This is an average built male in no apparent distress. VITAL SIGNS: Blood pressure of 130/80, pulse of 100 beats per minute and regular, temperature 102, respirations 20, height is 5 feet 10 inches, and weight is 145 pounds. HEENT: Head is normocephalic. Eyes; anicteric with pink conjunctivae. Funduscopy not possible at this time. Ears, nose, and throat otherwise normal. NECK: Supple. Thyroid gland is normal in size. No carotid bruits or any cervical adenopathy. CARDIOPULMONARY: Some adynamic precordium. S1 and S2 are rapid and regular. LUNGS: Clear to auscultation. ABDOMEN: Flat and soft with positive bowel sounds. EXTREMITIES: He has a nonhealing plantar ulcer in the left foot with no active drainage noted. Pulses are diminished peripherally. LABORATORY DATA: WBC is 14.2, hemoglobin is 11, hematocrit is 35, MCV is 85, and platelets are 186. Chemistries showed a BUN of 17, sodium of 133, potassium of 4.1, chloride of 95, CO2 of 13, glucose of 372, and creatinine of 1.2. ASSESSMENT: This is a 42-year-old male with uncontrolled and decompensated type 2 insulin requiring diabetes presenting here with diabetic ketoacidosis and dehydration with prerenal azotemia related to drug omission from loss of medical insurance. He also has diabetic polyneuropathy and peripheral arterial vasculopathy with previous toe amputations in the right foot as noted and a concomitant nonhealing left foot plantar ulcer. PLAN OF MANAGEMENT: We will continue the intensive insulin therapy initially given as an insulin drip infusion from the Emergency Room and is currently ongoing here at the ICU as noted. However, the repeat CO2 tonight is now 19 and so we can safely discontinue the insulin drip as ordered. However, we will continue the vigorous IV hydration with normal saline running at 200 mL/hour as ordered. We will just add potassium supplementation with K runs in small infusion bags as ordered. We will switch him over starting tonight with more affordable conventional insulin preparations such as Humulin regular insulin, which are about $30 dollars in the [facility] pharmacies. We will start him with Humulin regular given as 14 units a.c. breakfast and 10 units a.c. dinner as ordered. We will modify the coverage scale using regular insulin and detailed orders have been given. We will also increase the Levemir to 20 units subcutaneously at bedtime daily to start tonight, but we will also switch him over to more affordable Humulin NPH prior to his discharge to be given at bedtime. We will obtain serial chemistries and supplement accordingly as needed. We will follow. Libra Cee MD
[2017-10-08] MEDS ORDERED: Phenylephrine 0.25% NASAL Spray (15ML) NAS PRN (14:15)
[2017-10-08] MEDS ORDERED: Nasal Spray(Ocean spray) NAS PRN (14:15)
--- NOTE | 2017-10-08 19:45 | CP.PCM.CON ---
History of Present Illness - History of Present Illness History of Present Illness: 42 y.o male evaluated in the for left foot ulceration. . Patient reports that it started as a blister and turned into a ulcer. He has had this ulceration for over 3 months. He is going for MRIO to r/o OM IV antibiotics ordered PMH: DM PSH: right 3rd and 4th toe amputation, L achilles tendon repair secondary to achilles tendon rupture SH: smokes 1/2 pack a day for over 10 years; rarely drinks EtOH, denies illicit drug use ALL: NKDA MEDS: metformin, januvia FH: mother- HTN, father- DM Review of Systems - Review of Systems All systems: reviewed and no additional remarkable complaints except - Constitutional Constitutional: As Per HPI - EENT Eyes: absent: As Per HPI, Blind Spots, Blurred Vision, Change in Vision, Decreased Night Vision, Diplopia, Discharge, Dry Eye, Exophthalmos, Floaters, Irritation, Itchy Eyes, Loss of Peripheral Vision, Pain, Photophobia, Requires Corrective Lenses, Sees Flashes, Spots in Vision, Tunnel Vision, Other Visual Disturbances, Loss of Vision, Other Ears: absent: As Per HPI, Decreased Hearing, Ear Discharge, Ear Pain, Tinnitus, Abnormal Hearing, Disequilibrium, Dizziness, Other Nose/Mouth/Throat: absent: As Per HPI, Epistaxis, Nasal Congestion, Nasal Discharge, Nasal Obstruction, Nasal Trauma, Nose Pain, Post Nasal Drip, Sinus Pain, Sinus Pressure, Bleeding Gums, Change in Voice, Dental Pain, Dry Mouth, Dysphagia, Halitosis, Hoarsness, Lip Swelling, Mouth Lesions, Mouth Pain, Odynophagia, Sore Throat, Throat Swelling, Tongue Swelling, Facial Pain, Neck Pain, Neck Mass, Other - Cardiovascular Cardiovascular: absent: As Per HPI, Acrocyanosis, Chest Pain, Chest Pain at Rest , Chest Pain with Activity, Claudication, Diaphoresis, Dyspnea, Dyspnea on Exertion, Edema, Irregular Heart Rhythm, Pain Radiating to Arm/Neck/Jaw, Leg Edema, Leg Ulcers, Lightheadedness, Orthopnea, Palpitations, Paroxysmal Nocturnal Dyspnea, Pedal Edema, Radiating Pain, Rapid Heart Rate, Slow Heart Rate, Syncope, Other - Respiratory Respiratory: absent: As Per HPI, Cough, Dyspnea, Hemoptysis, Dyspnea on Exertion , Wheezing, Snoring, Stridor, Pain on Inspiration, Chest Congestion, Excessive Mucous Production, Change in Mucous Color, Pain with Coughing, Other - Gastrointestinal Gastrointestinal: absent: As Per HPI, Abdominal Pain, Belching, Bloating, Change in Bowel Habits, Change in Stool Character, Coffee Ground Emesis, Constipation, Cramping, Diarrhea, Dyspepsia, Dysphagia, Early Satiety, Excessive Flatus, Fecal Incontinence, Heartburn, Hematemesis, Hematochezia, Loose Stools, Melena, Nausea, Odynophagia, Temesmus, Vomiting, Other - Genitourinary Genitourinary: absent: As Per HPI, Change in Urinary Stream, Difficulty Urinating, Dysuria, Flank Pain, Hematuria, Pyuria, Nocturia, Urinary Incontinence, Urinary Frequency, Urinary Hesitance, Urinary Urgency, Voiding Freq/Small Amts, Freq UTI, Hx Renal/Bladder Calculi, Hx /Renal Surgery, Bladder Distension, Other - Musculoskeletal Musculoskeletal: As Per HPI - Integumentary Integumentary: As Per HPI, Skin Pain, Wounds - Neurological Neurological: As Per HPI, Sensory Deficit - Psychiatric Psychiatric: absent: As Per HPI, Abnormal Sleep Pattern, Anhedonia, Anxiety, Auditory Hallucinations, Behavioral Changes, Change in Appetite, Change in Libido, Confusion, Depression, Difficulty Concentrating, Hallucinations, Homicidal Ideation, Hopelessness, Irritability, Memory Loss, Mood Swings, Panic Attacks, Paranoia, Suicidal Ideation, Visual Hallucinations, Tactile Hallucinations, Other - Endocrine Endocrine: absent: As Per HPI, Change in Body Appearance, Change in Libido, Cold Intolorance, Deepening of Voice, Excessive Sweating, Fatigue, Flushing, Heat Intolorance, Increase in Ring/Shoe/Hat Size, Palpitations, Polydipsia, Polyphagia, Polyuria, Other - Hematologic/Lymphatic Hematologic: absent: As Per HPI, Easy Bleeding, Easy Bruising, Lymphadenopathy, Other Past Patient History - Infectious Disease Hx of Infectious Diseases: None - Tetanus Immunizations Tetanus Immunization: Unknown - Past Medical History & Family History Past Medical History?: Yes - Past Social History Alcohol: Occasional - CARDIAC Hx Cardiac Disorders: No - PULMONARY Hx Respiratory Disorders: No - ENDOCRINE/METABOLIC Hx Endocrine Disorders: Yes Hx Diabetes Mellitus Type 2: Yes - HEMATOLOGICAL/ONCOLOGICAL Hx AIDS: No Hx Human Immunodeficiency Virus (HIV): No - INTEGUMENTARY Other/Comment: Foot ulcer x 3 mos. first noted in Apr 2017 - MUSCULOSKELETAL/RHEUMATOLOGICAL Hx Musculoskeletal Disorders: No - GASTROINTESTINAL Hx Gastrointestinal Disorders: No - PSYCHIATRIC Hx Psychophysiologic Disorder: No Hx Substance Use: No - SURGICAL HISTORY Hx Surgeries: Yes Other/Comment: right foot toe amputation - ANESTHESIA Hx Anesthesia: Yes Hx Anesthesia Reactions: No Meds Allergies/Adverse Reactions: Allergies Allergy/AdvReac Type Severity Reaction Status Date / Time No Known Allergies Allergy Verified 10/07/17 14:51 - Medications Medications: Current Medications Acetaminophen (Tylenol 325mg Tab) 650 mg PO Q4 PRN PRN Reason: Fever >100.4 F Last Admin: 10/08/17 16:43 Dose: 650 mg Bacitracin (Bacitracin Oint) 1 applic TOP ONCE TASHA Dextrose (Dextrose 50% Inj) 0 ml IV STAT PRN; Protocol PRN Reason: Hypoglycemia Protocol Dextrose (Glutose 15) 0 gm PO ONCE PRN; Protocol PRN Reason: Hypoglycemia Protocol Enoxaparin Sodium (Lovenox) 40 mg SC DAILY TASHA PRN Reason: Protocol Last Admin: 10/08/17 08:49 Dose: 40 mg Glucagon (Glucagen Diagnostic Kit) 0 mg IM STAT PRN; Protocol PRN Reason: Hypoglycemia Protocol Piperacillin Sod/Tazobactam (Sod 3.375 gm/ Sodium Chloride) 50 mls @ 50 mls/hr IVPB Q6 TASHA PRN Reason: Protocol Last Admin: 10/08/17 16:50 Dose: 50 mls/hr Vancomycin HCl 1 gm/ Sodium (Chloride) 250 mls @ 166.667 mls/hr IVPB Q12@0600, 1800 TASHA PRN Reason: Protocol Last Admin: 10/08/17 05:25 Dose: 166.667 mls/hr Sodium Chloride (Sodium Chloride 0.9%) 1,000 mls @ 200 mls/hr IV .Q5H [facility] Stop: 10/09/17 01:14 Last Admin: 10/08/17 18:25 Dose: Not Given Insulin Human NPH (Humulin N) 16 units SC HS [facility] Insulin Human Regular (Humulin R) 0 units SC ACHS [facility] Last Admin: 10/08/17 16:55 Dose: Not Given Insulin Human Regular (Humulin R) 14 units SC ACB [facility] Last Admin: 10/08/17 08:49 Dose: 14 units Insulin Human Regular (Humulin R) 10 units SC ACD [facility] Last Admin: 10/08/17 18:22 Dose: Not Given Phenylephrine HCl (Darwin-Synephrine 0.25% Nasal [place]) 1 spry ANNIE Q4 PRN PRN Reason: Nasal congestion Sodium Chloride ([place] Nasal [place]) 2 sprays ANNIE Q4 PRN PRN Reason: Nasal congestion Physical Exam - Constitutional Appears: Non-toxic, Chronically Ill - Head Exam Head Exam: NORMOCEPHALIC - Eye Exam Eye Exam: PERRL. absent: Scleral icterus - ENT Exam ENT Exam: Mucous Membranes Dry, Normal External Ear Exam - Neck Exam Neck exam: Negative for: Lymphadenopathy - Respiratory Exam Respiratory Exam: Decreased Breath Sounds - Cardiovascular Exam Cardiovascular Exam: REGULAR RHYTHM - GI/Abdominal Exam GI & Abdominal Exam: Diminished Bowel Sounds, Soft. absent: Tenderness - Rectal Exam Rectal Exam: Deferred - Exam Exam: NORMAL INSPECTION - Extremities Exam Extremities exam: Positive for: pedal edema, tenderness, pedal pulses present. Negative for: calf tenderness Additional comments: foot ulcer as described - Back Exam Back exam: absent: CVA tenderness (L), CVA tenderness (R) - Neurological Exam Neurological exam: Alert, CN II-XII Intact, Oriented x3, Reflexes Normal - Psychiatric Exam Psychiatric exam: Normal Mood - Skin Skin Exam: Dry Results - Vital Signs Recent Vital Signs: Last Vital Signs Temp 100 F H 10/08/17 17:43 Pulse 119 H 10/08/17 12:00 Resp 18 10/08/17 12:00 BP 105/47 L 10/08/17 12:00 Pulse Ox 99 10/08/17 12:00 - Labs Result Diagrams: 10/08/17 05:00 10/08/17 05:00 Labs: Laboratory Results - last 24 hr 10/07/17 10/07/17 10/07/17 18:45 19:00 19:58 WBC RBC Hgb Hct MCV MCH MCHC RDW Plt Count Sodium 135 Potassium 3.3 L Chloride 104 Carbon Dioxide 16 L Anion Gap 18 BUN 18 Creatinine 1.3 Est GFR ( Amer) > 60 Est GFR (Non-Af Amer) > 60 POC Glucose (mg/dL) 246 H 205 H Random Glucose 255 H Hemoglobin A1c Lactic Acid Calcium 8.1 L Phosphorus Magnesium 1.6 Total Bilirubin AST ALT Alkaline Phosphatase Total Protein Albumin Globulin Albumin/Globulin Ratio Triglycerides Cholesterol LDL Cholesterol Direct HDL Cholesterol Procalcitonin Urine Opiates Screen Urine Methadone Screen Ur Barbiturates Screen Ur Phencyclidine Scrn Ur Amphetamines Screen U Benzodiazepines Scrn U Oth Cocaine Metabols U Cannabinoids Screen 10/07/17 10/07/17 10/07/17 20:54 20:54 20:54 WBC RBC Hgb Hct MCV MCH MCHC RDW Plt Count Sodium 135 Potassium 3.5 L Chloride 105 Carbon Dioxide 19 L Anion Gap 15 BUN 18 Creatinine 1.2 Est GFR ( Amer) > 60 Est GFR (Non-Af Amer) > 60 POC Glucose (mg/dL) Random Glucose 225 H Hemoglobin A1c Lactic Acid 1.0 Calcium 8.0 L Phosphorus 3.3 Magnesium Total Bilirubin AST ALT Alkaline Phosphatase Total Protein Albumin Globulin Albumin/Globulin Ratio Triglycerides Cholesterol LDL Cholesterol Direct HDL Cholesterol Procalcitonin 7.20 H Urine Opiates Screen Urine Methadone Screen Ur Barbiturates Screen Ur Phencyclidine Scrn Ur Amphetamines Screen U Benzodiazepines Scrn U Oth Cocaine Metabols U Cannabinoids Screen 10/07/17 10/07/17 10/08/17 21:34 22:38 00:02 WBC RBC Hgb Hct MCV MCH MCHC RDW Plt Count Sodium Potassium Chloride Carbon Dioxide Anion Gap BUN Creatinine Est GFR ( Amer) Est GFR (Non-Af Amer) POC Glucose (mg/dL) 203 H 167 H 126 H Random Glucose Hemoglobin A1c Lactic Acid Calcium Phosphorus Magnesium Total Bilirubin AST ALT Alkaline Phosphatase Total Protein Albumin Globulin Albumin/Globulin Ratio Triglycerides Cholesterol LDL Cholesterol Direct HDL Cholesterol Procalcitonin Urine Opiates Screen Urine Methadone Screen Ur Barbiturates Screen Ur Phencyclidine Scrn Ur Amphetamines Screen U Benzodiazepines Scrn U Oth Cocaine Metabols U Cannabinoids Screen 10/08/17 10/08/17 10/08/17 01:15 05:00 05:00 WBC 9.7 RBC 3.75 L Hgb 10.4 L Hct 32.0 L MCV 85.2 MCH 27.7 MCHC 32.5 L RDW 13.5 Plt Count 152 Sodium 136 Potassium 3.7 Chloride 108 H Carbon Dioxide 22 Anion Gap 10 BUN 19 Creatinine 1.1 Est GFR ( Amer) > 60 Est GFR (Non-Af Amer) > 60 POC Glucose (mg/dL) Random Glucose 141 H Hemoglobin A1c Lactic Acid Calcium 8.0 L Phosphorus 2.0 L Magnesium 1.6 Total Bilirubin 0.3 AST 31 ALT 33 Alkaline Phosphatase 58 Total Protein 5.6 L Albumin 2.6 L D Globulin 3.0 Albumin/Globulin Ratio 0.9 L Triglycerides 54 Cholesterol 146 LDL Cholesterol Direct 95 HDL Cholesterol 38 Procalcitonin Urine Opiates Screen Negative Urine Methadone Screen Negative Ur Barbiturates Screen Negative Ur Phencyclidine Scrn Negative Ur Amphetamines Screen Negative U Benzodiazepines Scrn Negative U Oth Cocaine Metabols Negative U Cannabinoids Screen Negative 10/08/17 10/08/17 10/08/17 05:00 05:58 16:52 WBC RBC Hgb Hct MCV MCH MCHC RDW Plt Count Sodium Potassium Chloride Carbon Dioxide Anion Gap BUN Creatinine Est GFR ( Amer) Est GFR (Non-Af Amer) POC Glucose (mg/dL) 97 218 H Random Glucose Hemoglobin A1c 14.1 H Lactic Acid Calcium Phosphorus Magnesium Total Bilirubin AST ALT Alkaline Phosphatase Total Protein Albumin Globulin Albumin/Globulin Ratio Triglycerides Cholesterol LDL Cholesterol Direct HDL Cholesterol Procalcitonin Urine Opiates Screen Urine Methadone Screen Ur Barbiturates Screen Ur Phencyclidine Scrn Ur Amphetamines Screen U Benzodiazepines Scrn U Oth Cocaine Metabols U Cannabinoids Screen Assessment & Plan (1) DKA (diabetic ketoacidosis) Status: Acute (2) DM type 2 causing leg or foot ulcer Status: Chronic - Assessment and Plan (Free Text) Assessment: await MRI bacteremia secondary to infected wound cultures pending consider echo will need repeat cultures
[2017-10-08 20:31] LABS: BLOOD UREA NITROGEN 16 mg/dl (9-20); GFR AFRICAN-AMERICAN > 60; GFR NON-AFRICAN AMERICAN > 60; MAGNESIUM 1.6 MG/DL (1.6-2.3)
[2017-10-08] MEDS: Insulin NPH Human 100 Units/ml Inj SC SCH (21:26)
--- NOTE | 2017-10-08 21:42 | PN ---
ENDOCRINOLOGY FOLLOWUP NOTE DATE: LOCATION: In room 421, ICU. SUBJECTIVE: This is a 42-year-old male with recent uncontrolled type 2 insulin-requiring diabetes, presenting here with diabetic ketoacidosis and dehydration and is now being followed closely for metabolic management. He has also ongoing IV antibiotics for a left foot plantar ulcer as noted. His glycemic levels are fluctuating, but improved and the latest glucose levels have ranged from 97 to 141 and 126 mg/dL. The latest chemistry showed a BUN of 19, sodium 136, potassium 3.7, chloride 108, CO2 22, glucose 141, and creatinine 1.1. His hemoglobin A1c is 14.1%, clearly elevated and indicative of suboptimal metabolic control of his diabetic condition. So, at this time, we will modify his basal and bolus insulin regimen and start him on regular insulin given as 14 units before breakfast and 10 units before dinner as ordered. We will change the Levemir of 20 units subcutaneously to a more affordable conventional insulin with NPH given as 16 units subcutaneously at bedtime daily to start tonight. We will continue the IV hydration as given and obtain serial chemistries and supplement accordingly as needed. We will follow. Libra Cee MD
[2017-10-09] MEDS: Piperacillin/Tazobact 3.375 GM in Sodium Chloride 0.9% 50 ML IVPB SCH ×4 (04:10→21:30)
[2017-10-09] MEDS: Enoxaparin 40 mg Syringe SC SCH (08:30)
[2017-10-09] MEDS: Insulin Regular 100 units/ml SC SCH ×6 (08:31→21:29)
--- NOTE | 2017-10-09 08:40 | CP.PCM.PN ---
Subjective - Date & Time of Evaluation Date of Evaluation: 10/09/17 Time of Evaluation: 08:38 - Subjective Subjective: 42 year old male seen at bedside for left foot ulceration at level of sub-third metatarsal head. Patient states that the pain in his foot is well controlled but still moderately present rating it a 5/10 today. Is AAO x 3 at time of visit resting comfortably in bed at time of visit. States that overnight he was feverish with chills. Denies any further pedal complaints at this time. Denies any recent N/V/F/C/CP/SOB/D/posterior calf pain when squeezed. Objective - Vital Signs/Intake and Output Vital Signs (last 24 hours): Temp Pulse Resp BP Pulse Ox 98.9 F 96 H 20 113/65 96 10/09/17 00:06 10/09/17 00:06 10/09/17 00:06 10/09/17 00:06 10/09/17 00:06 - Medications Medications: Current Medications Acetaminophen (Tylenol 325mg Tab) 650 mg PO Q4 PRN PRN Reason: Fever >100.4 F Last Admin: 10/08/17 16:43 Dose: 650 mg Acetaminophen (Tylenol 325mg Tab) 650 mg PO Q6 PRN PRN Reason: Headache Last Admin: 10/09/17 08:30 Dose: 650 mg Bacitracin (Bacitracin Oint) 1 applic TOP ONCE [facility] Dextrose (Dextrose 50% Inj) 0 ml IV STAT PRN; Protocol PRN Reason: Hypoglycemia Protocol Dextrose (Glutose 15) 0 gm PO ONCE PRN; Protocol PRN Reason: Hypoglycemia Protocol Enoxaparin Sodium (Lovenox) 40 mg SC DAILY [facility] PRN Reason: Protocol Last Admin: 10/09/17 08:30 Dose: 40 mg Glucagon (Glucagen Diagnostic Kit) 0 mg IM STAT PRN; Protocol PRN Reason: Hypoglycemia Protocol Piperacillin Sod/Tazobactam (Sod 3.375 gm/ Sodium Chloride) 50 mls @ 50 mls/hr IVPB Q6 [facility] PRN Reason: Protocol Last Admin: 10/09/17 04:10 Dose: 50 mls/hr Vancomycin HCl 1 gm/ Sodium (Chloride) 250 mls @ 166.667 mls/hr IVPB Q12@1100, 2300 [facility] PRN Reason: Protocol Last Admin: 10/08/17 23:07 Dose: 166.667 mls/hr Insulin Human NPH (Humulin N) 16 units SC HS [facility] Last Admin: 10/08/17 21:26 Dose: 16 unit Insulin Human Regular (Humulin R) 0 units SC ACHS [facility] Last Admin: 10/09/17 08:31 Dose: Not Given Insulin Human Regular (Humulin R) 10 units SC ACD [facility] Last Admin: 10/08/17 18:22 Dose: Not Given Insulin Human Regular (Humulin R) 8 units SC ACB [facility] Last Admin: 10/09/17 08:31 Dose: 8 units Phenylephrine HCl ([place]win-Synephrine 0.25% Nasal [place]) 1 spry ANNIE Q4 PRN PRN Reason: Nasal congestion Sodium Chloride ([place] Nasal [place]) 2 sprays ANNIE Q4 PRN PRN Reason: Nasal congestion - Labs Labs: 10/08/17 05:00 10/08/17 20:01 PT 11.9 Seconds (9.8-13.1) 10/07/17 15:30 INR 1.1 (0.9-1.2) 10/07/17 15:30 APTT 27.5 Seconds (25.6-37.1) 10/07/17 15:30 - Constitutional Appears: Well, Non-toxic, No Acute Distress - Extremities Exam Additional comments: Omer/green strikethrough noted to patient's dressings on left foot Vasc: DP and PT faintly palpable, temperature gradient warm to cool, no edema noted, CFT delayed to digits Ortho: tenderness with palpation to the ulceration site, MM is 4/5 in all four compartments in dorsiflexion, plantarflexion, inversion and eversion Neuro: Epicritic and protective sensation grossly intact b/l Derm: ulceration noted to left foot a sub met 3 measuring approximately 1.5 x 1 cm x .4 cm. Ulceration wound base is mixture of granular and fibrotic tissue with intact hyperkeratotic rim, circumferential undermining noted. Minimal purulent drainage noted as well as mild malodor. Periwound is hyperkeratotic and callused; no tunneling or tracking appreciated; no fluctanance noted. Assessment and Plan - Assessment and Plan (Free Text) Assessment: 42 year old male seen at bedside for infected plantar left foot ulceration Plan: Patient seen and evaluated at bedside Febrile state last night noted Afebrile at current time, absent leukocytosis Wound cx final: Beta hemolytic strep group B Follow up wound cx taken today per Dr. Ruiz request Continue IV abx per ID Still awaiting foot MRI reading to r/o OM No surgical intervention planned at this time Wound dressed with bacitracin, DSD Patient advised to remain partial weight bearing to heel Podiatry will continue to follow while patient in house
--- NOTE | 2017-10-09 10:05 | CP.PCM.PN ---
<Jairo Valadez - Last Filed: 10/09/17 16:31> Subjective - Date & Time of Evaluation Date of Evaluation: 10/09/17 Time of Evaluation: 10:04 - Subjective Subjective: Progress Note for Hospitalist- Dr. Healy 42 y.o male with diabetes type II seen at bedside for sepsis and left diabetic foot infection. Patient is seen laying comfortably in bed, in NAD, and AA0X3. Patient reports he just returned from getting ECHO performed. He reports that he continues to have fevers which Tylenol helps. He denies pain to the LE. Denies calf pain. Denies vomiting, shortness of breath, diarrhea, stomach problems, chest pain. Patient reports that he is able to walk around without difficulty. No problems with voiding or bowel movements. Reports that he is tolerating his PO diet well. Objective - Vital Signs/Intake and Output Vital Signs (last 24 hours): Temp Pulse Resp BP Pulse Ox 98.9 F 96 H 20 113/65 96 10/09/17 00:06 10/09/17 00:06 10/09/17 00:06 10/09/17 00:06 10/09/17 00:06 - Medications Medications: Current Medications Acetaminophen (Tylenol 325mg Tab) 650 mg PO Q4 PRN PRN Reason: Fever >100.4 F Last Admin: 10/08/17 16:43 Dose: 650 mg Acetaminophen (Tylenol 325mg Tab) 650 mg PO Q6 PRN PRN Reason: Headache Last Admin: 10/09/17 08:30 Dose: 650 mg Bacitracin (Bacitracin Oint) 1 applic TOP ONCE [facility] Dextrose (Dextrose 50% Inj) 0 ml IV STAT PRN; Protocol PRN Reason: Hypoglycemia Protocol Dextrose (Glutose 15) 0 gm PO ONCE PRN; Protocol PRN Reason: Hypoglycemia Protocol Enoxaparin Sodium (Lovenox) 40 mg SC DAILY [facility] PRN Reason: Protocol Last Admin: 10/09/17 08:30 Dose: 40 mg Glucagon (Glucagen Diagnostic Kit) 0 mg IM STAT PRN; Protocol PRN Reason: Hypoglycemia Protocol Piperacillin Sod/Tazobactam (Sod 3.375 gm/ Sodium Chloride) 50 mls @ 50 mls/hr IVPB Q6 [facility] PRN Reason: Protocol Last Admin: 10/09/17 10:03 Dose: 50 mls/hr Vancomycin HCl 1 gm/ Sodium (Chloride) 250 mls @ 166.667 mls/hr IVPB Q12@1100, 2300 [facility] PRN Reason: Protocol Last Admin: 10/08/17 23:07 Dose: 166.667 mls/hr Insulin Human NPH (Humulin N) 16 units SC HS [facility] Last Admin: 10/08/17 21:26 Dose: 16 unit Insulin Human Regular (Humulin R) 0 units SC ACHS [facility] Last Admin: 10/09/17 08:31 Dose: Not Given Insulin Human Regular (Humulin R) 10 units SC ACD [facility] Last Admin: 10/08/17 18:22 Dose: Not Given Insulin Human Regular (Humulin R) 8 units SC ACB [facility] Last Admin: 10/09/17 08:31 Dose: 8 units Phenylephrine HCl ([place]-Synephrine 0.25% Nasal [place]) 1 spry ANNIE Q4 PRN PRN Reason: Nasal congestion Sodium Chloride ([place] Nasal [place]) 2 sprays ANNIE Q4 PRN PRN Reason: Nasal congestion - Labs Labs: 10/08/17 05:00 10/08/17 20:01 PT 11.9 Seconds (9.8-13.1) 10/07/17 15:30 INR 1.1 (0.9-1.2) 10/07/17 15:30 APTT 27.5 Seconds (25.6-37.1) 10/07/17 15:30 - Constitutional Appears: Well, Non-toxic, No Acute Distress - Head Exam Head Exam: ATRAUMATIC, NORMAL INSPECTION, NORMOCEPHALIC - Eye Exam Eye Exam: EOMI, Normal appearance, PERRL Pupil Exam: NORMAL ACCOMODATION - ENT Exam ENT Exam: Mucous Membranes Moist, Normal Exam - Neck Exam Neck Exam: Full ROM, Normal Inspection - Respiratory Exam Respiratory Exam: Clear to Ausculation Bilateral, NORMAL BREATHING PATTERN. absent: Rales, Rhonchi, Wheezes, Respiratory Distress, Stridor - Cardiovascular Exam Cardiovascular Exam: Tachycardia, +S1, +S2. absent: JVD - GI/Abdominal Exam GI & Abdominal Exam: Soft, Normal Bowel Sounds. absent: Tenderness - Extremities Exam Additional comments: Dressing to the left lower extremity is clean, dry, and intact no strikethrough Capillary refill present but slightly delayed - Neurological Exam Neurological Exam: Alert, Awake, Oriented x3 - Psychiatric Exam Psychiatric exam: Normal Affect, Normal Mood - Skin Skin Exam: Dry, Intact, Normal Color, Warm Assessment and Plan - Assessment and Plan (Free Text) Assessment: 42 y.o male with hx of DM2 and foot ulceration seen for sepsis secondary to DM foot ulceration with cellulitis/possible acute OM. Plan: (1) DKA (diabetic ketoacidosis) Status: Acute IVF hydration - change to NS 200 ml/hour q1 Accucheck continue to monitor electrolytes d/c Insulin drip Endo consult: Dr Cee Regimen: Insulin Human Regular 14 units SC ACB [facility] Insulin Human Regular 10 units SC ACD [facility] Insulin Human Nph 16 units SC HS [facility] (2) Sepsis secondary to DM Left Foot Ulcer cellulitis/OM Status: Acute CXR : Negative, Influenza : Negative, Lactic acid normal, Procalcitonin normal Blood c/s results (10/07/17) preliminary Gram possitive cocci in chains;gram stain- gram positive cocci in chains Urine c/s (10/07/17)- no growth Repeat blood c/s x2 Ordered Echo- Echo results (10/09/17)- "The left ventricle is normal size. There is normal left ventricular wall thickness. There is normal LV segemental wall motion left ventricle systolic function is normal, The EF is 65% - 70%. The left ventricular diastolic function is normal. Dilated IVC with poor inspiration collapse is consistent with elevated right arterial pressure. No vegetations seen on this TTE." ID consult Dr. Magallanes appreciated C/W IV Vanco and Zosyn empirically (3) DM Type 2 causing leg or foot ulcer Status: Chronic Podiatry consulted- [facility] X[facility] IMPRESSION: Plantar ulcer without radiographic osteomyelitis finding suggested. Hypertrophic healing of prior posterior superior calcaneal fracture Wound c/s left foot -final beta hemolytic strep Group B MRI results- possible early acute osteomyelitis at base and mild portion of L 3rd proximal phalanx C/w abx IV vanco and Zosyn Tetanus toxoid (4) Hypophosphastemia Status: Acute Phosphorus/Potassium/Sodium (Neutra-Phos) 1 pkt once given (5) DVT prophylaxis Status: Acute Lovenox (6) Diet Diabetic Diet (7) Hypomagnesemia Status: Resolved given Mag Sulfate 2 grams <Vivian Healy - Last Filed: 10/09/17 17:18> Objective - Vital Signs/Intake and Output Vital Signs (last 24 hours): Temp Pulse Resp BP Pulse Ox 98.4 F 98 H 20 136/88 97 10/09/17 16:38 10/09/17 16:38 10/09/17 16:38 10/09/17 16:38 10/09/17 16:38 - Medications Medications: Current Medications Acetaminophen (Tylenol 325mg Tab) 650 mg PO Q4 PRN PRN Reason: Fever >100.4 F Last Admin: 10/08/17 16:43 Dose: 650 mg Acetaminophen (Tylenol 325mg Tab) 650 mg PO Q6 PRN PRN Reason: Headache Last Admin: 10/09/17 08:30 Dose: 650 mg Bacitracin (Bacitracin Oint) 1 applic TOP ONCE [facility] Dextrose (Dextrose 50% Inj) 0 ml IV STAT PRN; Protocol PRN Reason: Hypoglycemia Protocol Dextrose (Glutose 15) 0 gm PO ONCE PRN; Protocol PRN Reason: Hypoglycemia Protocol Enoxaparin Sodium (Lovenox) 40 mg SC DAILY [facility] PRN Reason: Protocol Last Admin: 10/09/17 08:30 Dose: 40 mg Glucagon (Glucagen Diagnostic Kit) 0 mg IM STAT PRN; Protocol PRN Reason: Hypoglycemia Protocol Piperacillin Sod/Tazobactam (Sod 3.375 gm/ Sodium Chloride) 50 mls @ 50 mls/hr IVPB Q6 [facility] PRN Reason: Protocol Last Admin: 10/09/17 10:03 Dose: 50 mls/hr Insulin Human NPH (Humulin N) 16 units SC HS [facility] Last Admin: 10/08/17 21:26 Dose: 16 unit Insulin Human Regular (Humulin R) 0 units SC ACHS [facility] Last Admin: 10/09/17 12:42 Dose: Not Given Insulin Human Regular (Humulin R) 10 units SC ACD [facility] Last Admin: 10/08/17 18:22 Dose: Not Given Insulin Human Regular (Humulin R) 8 units SC ACB [facility] Last Admin: 10/09/17 08:31 Dose: 8 units Phenylephrine HCl ([place]-Synephrine 0.25% Nasal [place]) 1 spry ANNIE Q4 PRN PRN Reason: Nasal congestion Sodium Chloride ([place] Nasal [place]) 2 sprays ANNIE Q4 PRN PRN Reason: Nasal congestion - Labs Labs: 10/08/17 05:00 10/08/17 20:01 PT 11.9 Seconds (9.8-13.1) 10/07/17 15:30 INR 1.1 (0.9-1.2) 10/07/17 15:30 APTT 27.5 Seconds (25.6-37.1) 10/07/17 15:30 Assessment and Plan (1) DKA (diabetic ketoacidosis) Status: Acute (2) Sepsis Status: Acute (3) DM type 2 causing leg or foot ulcer Status: Chronic (4) Hypomagnesemia Status: Acute (5) DVT prophylaxis Status: Acute Attending/Attestation - Attestation I have personally seen and examined this patient.: Yes I have fully participated in the care of the patient.: Yes I have reviewed all pertinent clinical information, including history, physical exam and plan: Yes Notes (Text): Sepsis sec to Foot Cellulitis with Acute on chronic OM, with Bacteremia ( Strep ) - cont IV Zosyn and Vanco -ECHO : no vegetation - rpt blood c/s today if negative plan for PICC line - pt may need prolonged IV abx - await Dr Magallanes's recommendation, pt uninsured , he will need to come to the hospital daily for IV abx infusion - will also await further Podiatry recommendation - pt was still febrile last night
--- NOTE | 2017-10-09 10:26 | CARD ---
APPROVED REPORT EXAM: Two-dimensional and M-mode echocardiogram with Doppler and color Doppler. Other Information Quality : GoodRhythm : NSR INDICATION Infection:Subacute bacterial endocarditis 2D DIMENSIONS Left Atrium (2D)3.00 (1.6-4.0cm)IVSd1.10 (0.7-1.1cm) Aortic Root (2D)2.98 (2.0-3.7cm)LVDd4.40 (3.9-5.9cm) PWd1.10 (0.7-1.1cm)IVSs1.53 (0.8-1.2cm) LVDs3.88 (2.5-4.0cm)PWs1.17 (0.8-1.2cm) M-Mode DIMENSIONS Left Atrium (MM)4.72 (2.5-4.0cm)IVSd1.05 (0.7-1.1cm) Aortic Root2.90 (2.2-3.7cm)LVDd5.05 (4.0-5.6cm) Aortic Cusp Exc.2.21 (1.5-2.0cm)PWd1.02 (0.7-1.1cm) IVSs1.60 cmFS (%) 33 % LVDs3.36 (2.0-3.8cm)PWs1.71 cm Mitral Valve MV E Ainxscqv09.9cm/sMV DECEL [id number] A Wsbitdba02.9cm/s MV AQZ55rtO/A ratio1.6MVA (PHT)7.32cm2 TDI Lateral E' Peak V13.36cm/sMedial E' Peak V12.63cm/sE/Lateral E'6.8 E/Medial E'7.2 Pulmonary Valve PV Peak Bqyivquz27.6cm/s LEFT VENTRICLE The left ventricle is normal size. There is normal left ventricular wall thickness. Left ventricle systolic function is normal. The Ejection Fraction is 65-70%. There is normal LV segmental wall motion. The left ventricular diastolic function is normal. RIGHT VENTRICLE The right ventricle is normal size. There is normal right ventricular wall thickness. The right ventricular systolic function is normal. ATRIA The left atrium size is normal. The right atrium size is normal. AORTIC VALVE The aortic valve is normal in structure. No aortic regurgitation is present. There is no aortic valvular stenosis. There is no aortic valvular vegetation. MITRAL VALVE The mitral valve is normal in structure. No vegetations. There is no evidence of mitral valve prolapse. There is no mitral valve stenosis. Mitral regurgitation is trace to mild. TRICUSPID VALVE The tricuspid valve is normal in structure. There is no tricuspid valve regurgitation noted. There is no tricuspid valve vegetation. PULMONIC VALVE The pulmonary valve is normal in structure. There is no pulmonic valvular regurgitation. GREAT VESSELS The aortic root is normal in size. Dilated IVC with poor inspiration collapse is consistent with elevated right atrial pressure. PERICARDIAL EFFUSION The pericardium appears normal. <Conclusion> The left ventricle is normal size. There is normal left ventricular wall thickness. There is normal LV segmental wall motion. Left ventricle systolic function is normal. The Ejection Fraction is 65-70%. The left ventricular diastolic function is normal. Dilated IVC with poor inspiration collapse is consistent with elevated right atrial pressure. No vegetations seen on this TTE.
--- NOTE | 2017-10-09 14:19 | CP.PCM.PN ---
Subjective - Date & Time of Evaluation Date of Evaluation: 10/09/17 Time of Evaluation: 08:00 - Subjective Subjective: group B strep in blood IV rx in progress await MRI Objective - Vital Signs/Intake and Output Vital Signs (last 24 hours): Temp Pulse Resp BP Pulse Ox 99 F 96 H 20 105/63 98 10/09/17 10:35 10/09/17 10:35 10/09/17 10:35 10/09/17 10:35 10/09/17 10:35 - Medications Medications: Current Medications Acetaminophen (Tylenol 325mg Tab) 650 mg PO Q4 PRN PRN Reason: Fever >100.4 F Last Admin: 10/08/17 16:43 Dose: 650 mg Acetaminophen (Tylenol 325mg Tab) 650 mg PO Q6 PRN PRN Reason: Headache Last Admin: 10/09/17 08:30 Dose: 650 mg Bacitracin (Bacitracin Oint) 1 applic TOP ONCE [facility] Dextrose (Dextrose 50% Inj) 0 ml IV STAT PRN; Protocol PRN Reason: Hypoglycemia Protocol Dextrose (Glutose 15) 0 gm PO ONCE PRN; Protocol PRN Reason: Hypoglycemia Protocol Enoxaparin Sodium (Lovenox) 40 mg SC DAILY [facility] PRN Reason: Protocol Last Admin: 10/09/17 08:30 Dose: 40 mg Glucagon (Glucagen Diagnostic Kit) 0 mg IM STAT PRN; Protocol PRN Reason: Hypoglycemia Protocol Piperacillin Sod/Tazobactam (Sod 3.375 gm/ Sodium Chloride) 50 mls @ 50 mls/hr IVPB Q6 [facility] PRN Reason: Protocol Last Admin: 10/09/17 10:03 Dose: 50 mls/hr Vancomycin HCl 1 gm/ Sodium (Chloride) 250 mls @ 166.667 mls/hr IVPB Q12@1100, 2300 [facility] PRN Reason: Protocol Last Admin: 10/09/17 10:13 Dose: 166.667 mls/hr Insulin Human NPH (Humulin N) 16 units SC HS [facility] Last Admin: 10/08/17 21:26 Dose: 16 unit Insulin Human Regular (Humulin R) 0 units SC ACHS [facility] Last Admin: 10/09/17 12:42 Dose: Not Given Insulin Human Regular (Humulin R) 10 units SC ACD [facility] Last Admin: 10/08/17 18:22 Dose: Not Given Insulin Human Regular (Humulin R) 8 units SC ACB [facility] Last Admin: 10/09/17 08:31 Dose: 8 units Phenylephrine HCl ([place]-Synephrine 0.25% Nasal [place]) 1 spry ANNIE Q4 PRN PRN Reason: Nasal congestion Sodium Chloride ([place] Nasal [place]) 2 sprays ANNIE Q4 PRN PRN Reason: Nasal congestion - Labs Labs: 10/08/17 05:00 10/08/17 20:01 PT 11.9 Seconds (9.8-13.1) 10/07/17 15:30 INR 1.1 (0.9-1.2) 10/07/17 15:30 APTT 27.5 Seconds (25.6-37.1) 10/07/17 15:30 - Constitutional Appears: Non-toxic, Chronically Ill - Head Exam Head Exam: NORMOCEPHALIC - Eye Exam Eye Exam: PERRL - ENT Exam ENT Exam: Mucous Membranes Dry - Neck Exam Neck Exam: absent: Lymphadenopathy - Respiratory Exam Respiratory Exam: Decreased Breath Sounds - Cardiovascular Exam Cardiovascular Exam: REGULAR RHYTHM - GI/Abdominal Exam GI & Abdominal Exam: Distended - Rectal Exam Rectal Exam: Deferred - Exam Exam: NORMAL INSPECTION - Extremities Exam Extremities Exam: absent: Pedal Edema - Back Exam Back Exam: absent: CVA tenderness (L), CVA tenderness (R) - Neurological Exam Neurological Exam: Alert, Awake, Oriented x3 - Psychiatric Exam Psychiatric exam: Normal Mood - Skin Skin Exam: Warm Assessment and Plan (1) DKA (diabetic ketoacidosis) Status: Acute (2) DM type 2 causing leg or foot ulcer Status: Chronic - Assessment and Plan (Free Text) Assessment: await mri REPORT CONT iv ANTIBIOTICS
--- NOTE | 2017-10-09 14:38 | MRI ---
MRI left foot History: Osteomyelitis. Comparison: None available. Technique: Multi-echo multiplanar sequences were performed through the left foot without the use of intravenous contrast. Findings: Extensive motion artifact markedly limits evaluation. Skin defect/ulcer with associated soft tissue edema at the level of the 3rd and 4th metatarsal heads suggestive for a cellulitis. Signal abnormality seen at the base and mid portion of the 3rd proximal phalanx with associated mild patchy decreased T1 signal and mild patchy increased STIR signal. These findings may represent a developing and or early acute osteomyelitis. Clinical correlation. Signal abnormality with some decreased T1 signal noted at the base of the 5th distal phalanx as well as the head of the middle phalanx. No gross corresponding STIR signal abnormality. This may represent a chronic deformity and or chronic osseous injury versus possible chronic osteomyelitis versus additional etiology. Clinical correlation. Mild plantar muscle atrophy. Reticulation and edema within the circumferential subcutaneous soft tissues. Impression: Extensive motion artifact markedly limits evaluation. 1. Skin defect/ulcer with associated soft tissue edema at the level of the 3rd and 4th metatarsal heads suggestive for a cellulitis. 2. Signal abnormality seen at the base and mid portion of the 3rd proximal phalanx with associated mild patchy decreased T1 signal and mild patchy increased STIR signal. These findings may represent a developing and or early acute osteomyelitis. Clinical correlation. 3. Signal abnormality with some decreased T1 signal noted at the base of the 5th distal phalanx as well as the head of the middle phalanx. No gross corresponding STIR signal abnormality. This is of uncertain clinical etiology. This may represent a chronic deformity and or chronic osseous injury versus possible chronic osteomyelitis versus additional etiology. Clinical correlation. 4. Mild plantar muscle atrophy. 5. Reticulation and edema within the circumferential subcutaneous soft tissues. These findings were preliminarily reported at 8:19 p.m. on 10/08/[address] David Jaimes from [facility].
[2017-10-09] MEDS: Insulin NPH Human 100 Units/ml Inj SC SCH (21:28)
--- NOTE | 2017-10-09 21:38 | PN ---
ENDOCRINOLOGY FOLLOWUP NOTE DATE: ROOM: 668. SUBJECTIVE: This is a 42-year-old male with recent uncontrolled type 2 insulin-requiring diabetes presenting here with diabetic ketoacidosis and dehydration and is now being followed closely for metabolic management. His glucose levels are fluctuating but much improved at this time and the latest glucose levels have ranged from 218-236 mg/dL. His latest chemistry showed a BUN of 16, sodium 135, potassium 3.9, chloride 105, CO2 of 22, glucose 217 and creatinine 1.1. So at this time, we will continue the same basal and bolus insulin regimen as ordered to allow for dose equilibration and keep him on regular insulin given as 8 units before breakfast and 10 units before dinner as ordered. We will continue the overnight basal insulin with NPH given as 16 units subcu at bedtime daily as ordered. We will obtain serial chemistries . We will follow. Libra Cee MD
[2017-10-10] MEDS: Piperacillin/Tazobact 3.375 GM in Sodium Chloride 0.9% 50 ML IVPB SCH ×2 (04:17→09:47)
[2017-10-10 07:10] LABS: HEMOGLOBIN 11.6 g/dL (12.0-18.0); MEAN CELL VOLUME 84.1 fl (80.0-94.0); MEAN CORPUSCULAR HGB CONC 33.3 g/dL (33.0-37.0); RBC 4.15 Mil/uL (4.40-5.90); RED CELL DISTRIBUTION WIDTH 13.6 % (11.5-14.5); WHITE BLOOD COUNT 6.7 K/uL (4.8-10.8)
[2017-10-10 07:26] LABS: BLOOD UREA NITROGEN 10 mg/dl (9-20); CALCIUM 9.4 mg/dL (8.4-10.2); GFR AFRICAN-AMERICAN > 60; GFR NON-AFRICAN AMERICAN > 60
[2017-10-10] MEDS: Insulin Regular 100 units/ml SC SCH ×5 (08:43→22:08)
[2017-10-10] MEDS: Enoxaparin 40 mg Syringe SC SCH (08:45)
--- NOTE | 2017-10-10 13:53 | PN ---
DATE: ENDOCRINOLOGY FOLLOWUP NOTE LOCATION: Room number 668 SUBJECTIVE: This is a 42-year-old male with recent uncontrolled type 2 insulin-requiring diabetes now being followed closely for metabolic management. His glycemic levels are fluctuating as noted and the latest glucose levels have ranged from 255 to 375 mg/dL. LABORATORY DATA: The latest chemistry showed a BUN of 10, sodium of 143, potassium of 4.6, chloride of 101, CO2 of 31, glucose of 266 and creatinine of 1.1. IMPRESSION AND PLAN: So at this time we will modify his basal insulin and increase the NPH to 22 units subcutaneously at bedtime daily and increase the Regular Insulin to 14 units subcutaneous a.c. dinner as ordered. We will also increase the morning Regular Insulin to 10 units a.c. breakfast daily as ordered. We will titrate incrementally as indicated to optimize metabolic control. We will obtain serial chemistries and supplement accordingly as needed. We will follow up. Libra Cee MD
--- NOTE | 2017-10-10 14:16 | CP.PCM.PN ---
Subjective - Date & Time of Evaluation Date of Evaluation: 10/10/17 Time of Evaluation: 11:00 - Subjective Subjective: 42 year old male presenting with history of Type 2 DM and foot ulceration. The patient denies foot pain, chest pain, or shortness of breath. Denies fever or chills. Objective - Vital Signs/Intake and Output Vital Signs (last 24 hours): Temp Pulse Resp BP Pulse Ox 98.4 F 96 H 18 106/65 97 10/10/17 08:35 10/10/17 08:35 10/10/17 08:35 10/10/17 08:35 10/10/17 08:35 - Medications Medications: Current Medications Acetaminophen (Tylenol 325mg Tab) 650 mg PO Q4 PRN PRN Reason: Fever >100.4 F Last Admin: 10/08/17 16:43 Dose: 650 mg Acetaminophen (Tylenol 325mg Tab) 650 mg PO Q6 PRN PRN Reason: Headache Last Admin: 10/09/17 08:30 Dose: 650 mg Bacitracin (Bacitracin Oint) 1 applic TOP ONCE [facility] Dextrose (Dextrose 50% Inj) 0 ml IV STAT PRN; Protocol PRN Reason: Hypoglycemia Protocol Dextrose (Glutose 15) 0 gm PO ONCE PRN; Protocol PRN Reason: Hypoglycemia Protocol Enoxaparin Sodium (Lovenox) 40 mg SC DAILY TASHA PRN Reason: Protocol Last Admin: 10/10/17 08:45 Dose: 40 mg Glucagon (Glucagen Diagnostic Kit) 0 mg IM STAT PRN; Protocol PRN Reason: Hypoglycemia Protocol Piperacillin Sod/Tazobactam (Sod 3.375 gm/ Sodium Chloride) 100 mls @ 100 mls/ hr IVPB Q6 [facility] PRN Reason: Protocol Insulin Human NPH (Humulin N) 22 units SC HS [facility] Insulin Human Regular (Humulin R) 0 units SC ACHS [facility] Last Admin: 10/10/17 12:43 Dose: 4 units Insulin Human Regular (Humulin R) 14 units SC ACD [facility] Insulin Human Regular (Humulin R) 10 units SC ACB [facility] Phenylephrine HCl (Darwin-Synephrine 0.25% Nasal [place]) 1 spry ANNIE Q4 PRN PRN Reason: Nasal congestion Sodium Chloride ([place] Nasal [place]) 2 sprays ANNIE Q4 PRN PRN Reason: Nasal congestion - Labs Labs: 10/10/17 05:30 10/10/17 05:30 PT 11.9 Seconds (9.8-13.1) 10/07/17 15:30 INR 1.1 (0.9-1.2) 10/07/17 15:30 APTT 27.5 Seconds (25.6-37.1) 10/07/17 15:30 - Additional Findings Additional findings: Physical exam: Constitutional- cooperative, awake, alert Head- NCAT, PERRL Eye- PERRL, EOMI ENT- normal exam, MMM. Neck- normal inspection, supple, no JVD Respiratory- CTAB, no wheezes rales rhonchi Cardiovascular- RRR, +S1, +S2 no MRG GI/Abdominal- normal bowel sounds, soft, no mass, no hsm Skin- warm, dry Extremities Exam- normal capillary refill, normal inspection Neurological Exam- alert, awake, oriented Psych- normal mood, normal affect Assessment and Plan - Assessment and Plan (Free Text) Plan: Assessment and Plan (1) DKA (diabetic ketoacidosis)- resolving Status: Acute (2) Sepsis- resolved Status: Acute (3) DM type 2 causing leg or foot ulcer Status: Chronic (4) Hypomagnesemia Status: Acute (5) DVT prophylaxis Status: Acute Attending/Attestation - Attestation I have personally seen and examined this patient.: Yes I have fully participated in the care of the patient.: Yes I have reviewed all pertinent clinical information, including history, physical exam and plan: Yes Sepsis sec to Foot Cellulitis with Acute on chronic OM, with Bacteremia ( Strep ) - cont IV Zosyn and Vanco -ECHO : no vegetation - Follow up repeat BCX; if negative plan for PICC line placement on 10/12/2017 - MRI results pending - pt may need prolonged IV abx - await Dr Magallanes's recommendation, pt uninsured , he will need to come to the hospital daily for IV abx infusion - Podiatry, Dr. Davies- will continue to see while in house, no surgical intervention planned at this time - afebrlie overnight but febrile yesterday DM type 2 - Continue insulin regimen - Dr. Cee on consultation Hypomagnesemia - 1.6 - Given 2 grams magnesium IV - Repeat Mag level in AM DVT prophylaxis - Lovenox
--- NOTE | 2017-10-10 15:07 | CP.PCM.PN ---
Subjective - Date & Time of Evaluation Date of Evaluation: 10/10/17 Time of Evaluation: 16:02 - Subjective Subjective: Podiatry Progress Note- Dr. Davies 42 year old male seen at bedside for left foot ulceration at level of sub-third metatarsal head with OM. Patient is seen resting comfortably in bed, in NAD, and AA0x3. Patient denies overnight acute events. Denies any further pedal complaints at this time. Denies any recent N/V/F/C/CP/SOB/D/posterior calf pain when squeezed. Patient reports he has been ambulating fine with surgical shoe. Objective - Vital Signs/Intake and Output Vital Signs (last 24 hours): Temp Pulse Resp BP Pulse Ox 98.4 F 96 H 18 106/65 97 10/10/17 08:35 10/10/17 08:35 10/10/17 08:35 10/10/17 08:35 10/10/17 08:35 - Medications Medications: Current Medications Acetaminophen (Tylenol 325mg Tab) 650 mg PO Q4 PRN PRN Reason: Fever >100.4 F Last Admin: 10/08/17 16:43 Dose: 650 mg Acetaminophen (Tylenol 325mg Tab) 650 mg PO Q6 PRN PRN Reason: Headache Last Admin: 10/09/17 08:30 Dose: 650 mg Bacitracin (Bacitracin Oint) 1 applic TOP ONCE [facility] Dextrose (Dextrose 50% Inj) 0 ml IV STAT PRN; Protocol PRN Reason: Hypoglycemia Protocol Dextrose (Glutose 15) 0 gm PO ONCE PRN; Protocol PRN Reason: Hypoglycemia Protocol Enoxaparin Sodium (Lovenox) 40 mg SC DAILY TASHA PRN Reason: Protocol Last Admin: 10/10/17 08:45 Dose: 40 mg Glucagon (Glucagen Diagnostic Kit) 0 mg IM STAT PRN; Protocol PRN Reason: Hypoglycemia Protocol Piperacillin Sod/Tazobactam (Sod 3.375 gm/ Sodium Chloride) 100 mls @ 100 mls/ hr IVPB Q6 [facility] PRN Reason: Protocol Insulin Human NPH (Humulin N) 22 units SC HS [facility] Insulin Human Regular (Humulin R) 0 units SC ACHS [facility] Last Admin: 10/10/17 12:43 Dose: 4 units Insulin Human Regular (Humulin R) 14 units SC ACD [facility] Insulin Human Regular (Humulin R) 10 units SC ACB [facility] Phenylephrine HCl (Darwin-Synephrine 0.25% Nasal [place]) 1 spry ANNIE Q4 PRN PRN Reason: Nasal congestion Sodium Chloride ([place] Nasal [place]) 2 sprays ANNIE Q4 PRN PRN Reason: Nasal congestion - Labs Labs: 10/10/17 05:30 10/10/17 05:30 PT 11.9 Seconds (9.8-13.1) 10/07/17 15:30 INR 1.1 (0.9-1.2) 10/07/17 15:30 APTT 27.5 Seconds (25.6-37.1) 10/07/17 15:30 - Constitutional Appears: Well, Non-toxic, No Acute Distress - Extremities Exam Additional comments: Vasc: DP and PT faintly palpable, temperature gradient warm to cool, no edema noted, CFT delayed to digits Ortho: tenderness with palpation to the ulceration site, MM is 4/5 in all four compartments in dorsiflexion, plantarflexion, inversion and eversion Neuro: Epicritic and protective sensation grossly intact b/l Derm: ulceration noted to left foot a sub met 3 measuring approximately 1.5 x 1 cm x .4 cm. Ulceration wound base is mixture of granular and fibrotic tissue with intact hyperkeratotic rim, circumferential undermining noted. Minimal purulent drainage noted as well as mild malodor. Periwound is hyperkeratotic and callused; no tunneling or tracking appreciated; no fluctanance noted. - Neurological Exam Neurological Exam: Alert, Awake, Oriented x3 - Psychiatric Exam Psychiatric exam: Normal Affect, Normal Mood Assessment and Plan - Assessment and Plan (Free Text) Assessment: 42 year old male seen at bedside for infected plantar left foot ulceration with OM Plan: Patient seen and evaluated at bedside Discusssed plan in detail with Dr. Davies Charts, labs, vitals reviewed Afebrile at current time, absent leukocytosis (WBC=6.7 on 10/10/17) [id number] ulcer without radiographic OM finding suggested MRI- possible developing and or early acute OM 3rd proximal phalanx base and mid portion and cellulitis Wound cx final: Beta hemolytic strep group B Follow up wound cx taken today per Dr. Ruiz request Continue IV abx per ID No surgical intervention planned at this time Wound dressed with bacitracin, DSD Patient advised to remain partial weight bearing to heel Podiatry will continue to follow while patient in house
[2017-10-10] MEDS ORDERED: Insulin Regular 100 units/ml SC SCH (16:30)
[2017-10-10] MEDS: Piperacillin/Tazobact 3.375 GM in Sodium Chloride 0.9% 100 ML IVPB SCH ×2 (16:57→21:07)
[2017-10-10] MEDS: Insulin NPH Human 100 Units/ml Inj SC SCH (22:09)
[2017-10-11] MEDS: Piperacillin/Tazobact 3.375 GM in Sodium Chloride 0.9% 100 ML IVPB SCH ×2 (04:31→09:26)
[2017-10-11] MEDS ORDERED: Insulin Regular 100 units/ml SC SCH ×2 (07:30→16:30)
[2017-10-11] MEDS: Insulin Regular 100 units/ml SC SCH ×5 (08:28→22:33)
[2017-10-11] MEDS: Enoxaparin 40 mg Syringe SC SCH (08:29)
--- NOTE | 2017-10-11 13:02 | CP.PCM.PN ---
Subjective - Date & Time of Evaluation Date of Evaluation: 10/11/17 Time of Evaluation: 09:00 - Subjective Subjective: 42 year old male seen at bedside for left foot ulceration at level of sub-third metatarsal head with OM. Objective - Vital Signs/Intake and Output Vital Signs (last 24 hours): Temp Pulse Resp BP Pulse Ox 97.9 F 81 18 106/67 99 10/11/17 08:24 10/11/17 08:24 10/11/17 08:24 10/11/17 08:24 10/11/17 08:24 - Medications Medications: Current Medications Acetaminophen (Tylenol 325mg Tab) 650 mg PO Q4 PRN PRN Reason: Fever >100.4 F Last Admin: 10/08/17 16:43 Dose: 650 mg Acetaminophen (Tylenol 325mg Tab) 650 mg PO Q6 PRN PRN Reason: Headache Last Admin: 10/09/17 08:30 Dose: 650 mg Bacitracin (Bacitracin Oint) 1 applic TOP ONCE [facility] Dextrose (Dextrose 50% Inj) 0 ml IV STAT PRN; Protocol PRN Reason: Hypoglycemia Protocol Dextrose (Glutose 15) 0 gm PO ONCE PRN; Protocol PRN Reason: Hypoglycemia Protocol Glucagon (Glucagen Diagnostic Kit) 0 mg IM STAT PRN; Protocol PRN Reason: Hypoglycemia Protocol Piperacillin Sod/Tazobactam (Sod 3.375 gm/ Sodium Chloride) 100 mls @ 100 mls/ hr IVPB Q6 [facility] PRN Reason: Protocol Last Admin: 10/11/17 09:26 Dose: 100 mls/hr Insulin Human NPH (Humulin N) 22 units SC HS [facility] Last Admin: 10/10/17 22:09 Dose: 22 units Insulin Human Regular (Humulin R) 0 units SC ACHS [facility] Last Admin: 10/11/17 12:46 Dose: Not Given Insulin Human Regular (Humulin R) 14 units SC ACB [facility] Last Admin: 10/11/17 08:28 Dose: 14 units Insulin Human Regular (Humulin R) 16 units SC ACD [facility] Phenylephrine HCl (Darwin-Synephrine 0.25% Nasal [place]) 1 spry ANNIE Q4 PRN PRN Reason: Nasal congestion Sodium Chloride ([place] Nasal [place]) 2 sprays ANNIE Q4 PRN PRN Reason: Nasal congestion - Labs Labs: 10/10/17 05:30 10/10/17 05:30 PT 11.9 Seconds (9.8-13.1) 10/07/17 15:30 INR 1.1 (0.9-1.2) 10/07/17 15:30 APTT 27.5 Seconds (25.6-37.1) 10/07/17 15:30 - Constitutional Appears: Non-toxic, Chronically Ill - Head Exam Head Exam: NORMOCEPHALIC - Eye Exam Eye Exam: absent: Scleral icterus - ENT Exam ENT Exam: Mucous Membranes Dry - Neck Exam Neck Exam: absent: Lymphadenopathy - Respiratory Exam Respiratory Exam: Decreased Breath Sounds - Cardiovascular Exam Cardiovascular Exam: REGULAR RHYTHM - GI/Abdominal Exam GI & Abdominal Exam: Distended, Soft - Rectal Exam Rectal Exam: Deferred - Exam Exam: NORMAL INSPECTION - Extremities Exam Extremities Exam: Pedal Edema. absent: Calf Tenderness, Tenderness - Back Exam Back Exam: absent: CVA tenderness (L), CVA tenderness (R) - Neurological Exam Neurological Exam: Alert, Awake, Oriented x3 Neuro motor strength exam: Left Upper Extremity: 5, Right Upper Extremity: 5, Left Lower Extremity: 5, Right Lower Extremity: 5 - Psychiatric Exam Psychiatric exam: Normal Mood - Skin Skin Exam: Dry Assessment and Plan (1) DKA (diabetic ketoacidosis) Status: Acute (2) DM type 2 causing leg or foot ulcer Status: Chronic - Assessment and Plan (Free Text) Assessment: cont iv antibiotics for 6 weeks for OM
--- NOTE | 2017-10-11 13:49 | CP.PCM.PN ---
Subjective - Date & Time of Evaluation Date of Evaluation: 10/11/17 Time of Evaluation: 13:00 - Subjective Subjective: Podiatry Progress Note- Dr. Davies 42 year old male seen at bedside for left foot ulceration at level of sub-third metatarsal head with OM. Patient is seen resting comfortably in bed, in NAD, and AA0x3. Patient denies overnight acute events. Denies any further pedal complaints at this time. Denies any recent N/V/F/C/CP/SOB/D/posterior calf pain when squeezed. Patient reports he continues to ambulate fine with surgical shoe. He reports he doesn't have any pain, rates pain 0/10 on VAS scale. Objective - Vital Signs/Intake and Output Vital Signs (last 24 hours): Temp Pulse Resp BP Pulse Ox 97.9 F 81 18 106/67 99 10/11/17 08:24 10/11/17 08:24 10/11/17 08:24 10/11/17 08:24 10/11/17 08:24 - Medications Medications: Current Medications Acetaminophen (Tylenol 325mg Tab) 650 mg PO Q4 PRN PRN Reason: Fever >100.4 F Last Admin: 10/08/17 16:43 Dose: 650 mg Acetaminophen (Tylenol 325mg Tab) 650 mg PO Q6 PRN PRN Reason: Headache Last Admin: 10/09/17 08:30 Dose: 650 mg Bacitracin (Bacitracin Oint) 1 applic TOP ONCE [facility] Dextrose (Dextrose 50% Inj) 0 ml IV STAT PRN; Protocol PRN Reason: Hypoglycemia Protocol Dextrose (Glutose 15) 0 gm PO ONCE PRN; Protocol PRN Reason: Hypoglycemia Protocol Glucagon (Glucagen Diagnostic Kit) 0 mg IM STAT PRN; Protocol PRN Reason: Hypoglycemia Protocol Piperacillin Sod/Tazobactam (Sod 3.375 gm/ Sodium Chloride) 100 mls @ 100 mls/ hr IVPB Q6 [facility] PRN Reason: Protocol Last Admin: 10/11/17 09:26 Dose: 100 mls/hr Insulin Human NPH (Humulin N) 22 units SC HS [facility] Last Admin: 10/10/17 22:09 Dose: 22 units Insulin Human Regular (Humulin R) 0 units SC ACHS [facility] Last Admin: 10/11/17 12:46 Dose: Not Given Insulin Human Regular (Humulin R) 14 units SC ACB [facility] Last Admin: 10/11/17 08:28 Dose: 14 units Insulin Human Regular (Humulin R) 16 units SC ACD [facility] Phenylephrine HCl ([place]win-Synephrine 0.25% Nasal [place]) 1 spry ANNIE Q4 PRN PRN Reason: Nasal congestion Sodium Chloride ([place] Nasal [place]) 2 sprays ANNIE Q4 PRN PRN Reason: Nasal congestion - Labs Labs: 10/10/17 05:30 10/10/17 05:30 PT 11.9 Seconds (9.8-13.1) 10/07/17 15:30 INR 1.1 (0.9-1.2) 10/07/17 15:30 APTT 27.5 Seconds (25.6-37.1) 10/07/17 15:30 - Constitutional Appears: Well, Non-toxic, Toxic - Extremities Exam Additional comments: Dressing is clean and intact with sangious/yellow drainage to the dressing Vasc: DP and PT faintly palpable, temperature gradient warm to cool, no edema noted, CFT delayed to digits Ortho: tenderness with palpation to the ulceration site, MM is 4/5 in all four compartments in dorsiflexion, plantarflexion, inversion and eversion Neuro: Epicritic and protective sensation grossly intact b/l Derm: ulceration noted to left foot a sub met 3 measuring approximately 1.5 x 1 cm x .4 cm. Ulceration wound base is mixture of granular and fibrotic tissue with intact hyperkeratotic rim, circumferential undermining noted. Minimal purulent drainage noted as well as mild malodor. Periwound is hyperkeratotic and callused; no tunneling or tracking appreciated; no fluctanance noted. - Neurological Exam Neurological Exam: Alert, Awake, Oriented x3 - Psychiatric Exam Psychiatric exam: Normal Affect, Normal Mood Assessment and Plan - Assessment and Plan (Free Text) Assessment: 42 year old male seen at bedside for infected plantar left foot ulceration with OM Plan: Patient seen and evaluated at bedside Discusssed plan in detail with Dr. Davies Charts, labs, vitals reviewed Afebrile at current time, absent leukocytosis (WBC=6.7 on 10/10/17) [id number] ulcer without radiographic OM finding suggested MRI- possible developing and or early acute OM 3rd proximal phalanx base and mid portion and cellulitis Wound cx final: Beta hemolytic strep group B Follow up wound cx taken today per Dr. Ruiz request Continue IV abx per ID No surgical intervention planned at this time Wound dressed with bacitracin, DSD Patient advised to remain partial weight bearing to heel Podiatry will continue to follow while patient in house
--- NOTE | 2017-10-11 16:35 | CP.PCM.PN ---
Subjective - Date & Time of Evaluation Date of Evaluation: 10/11/17 Time of Evaluation: 10:15 - Subjective Subjective: Patient states he feels well today. Seen at bedside. No complaints of pain. Denies chest pain, sob, weakness, nausea, or vomiting. Objective - Vital Signs/Intake and Output Vital Signs (last 24 hours): Temp Pulse Resp BP Pulse Ox 98.2 F 95 H 20 126/80 95 10/11/17 16:13 10/11/17 16:13 10/11/17 16:13 10/11/17 16:13 10/11/17 16:13 - Medications Medications: Current Medications Acetaminophen (Tylenol 325mg Tab) 650 mg PO Q4 PRN PRN Reason: Fever >100.4 F Last Admin: 10/08/17 16:43 Dose: 650 mg Acetaminophen (Tylenol 325mg Tab) 650 mg PO Q6 PRN PRN Reason: Headache Last Admin: 10/09/17 08:30 Dose: 650 mg Bacitracin (Bacitracin Oint) 1 applic TOP ONCE [facility] Dextrose (Dextrose 50% Inj) 0 ml IV STAT PRN; Protocol PRN Reason: Hypoglycemia Protocol Dextrose (Glutose 15) 0 gm PO ONCE PRN; Protocol PRN Reason: Hypoglycemia Protocol Glucagon (Glucagen Diagnostic Kit) 0 mg IM STAT PRN; Protocol PRN Reason: Hypoglycemia Protocol Ceftriaxone Sodium 2 gm/ (Sodium Chloride) 100 mls @ 100 mls/hr IVPB DAILY [facility] PRN Reason: Protocol Insulin Human NPH (Humulin N) 22 units SC HS [facility] Last Admin: 10/10/17 22:09 Dose: 22 units Insulin Human Regular (Humulin R) 0 units SC ACHS [facility] Last Admin: 10/11/17 12:46 Dose: Not Given Insulin Human Regular (Humulin R) 14 units SC ACB [facility] Last Admin: 10/11/17 08:28 Dose: 14 units Insulin Human Regular (Humulin R) 16 units SC ACD [facility] Phenylephrine HCl (Darwin-Synephrine 0.25% Nasal [place]) 1 spry ANINE Q4 PRN PRN Reason: Nasal congestion Sodium Chloride ([place] Nasal [place]) 2 sprays ANNIE Q4 PRN PRN Reason: Nasal congestion - Labs Labs: 10/10/17 05:30 10/10/17 05:30 PT 11.9 Seconds (9.8-13.1) 10/07/17 15:30 INR 1.1 (0.9-1.2) 10/07/17 15:30 APTT 27.5 Seconds (25.6-37.1) 10/07/17 15:30 - Additional Findings Additional findings: Physical exam: Constitutional- cooperative, awake, alert Head- NCAT, PERRL Eye- PERRL, EOMI ENT- normal exam, MMM. Neck- normal inspection, supple, no JVD Respiratory- CTAB, no wheezes rales rhonchi Cardiovascular- RRR, +S1, +S2 no MRG GI/Abdominal- normal bowel sounds, soft, no mass, no hsm Skin- warm, dry Extremities Exam- + Gauze bandage to left foot c/d/i. normal capillary refill, normal inspection Neurological Exam- alert, awake, oriented Psych- normal mood, normal affect Assessment and Plan - Assessment and Plan (Free Text) Plan: Sepsis sec to Foot Cellulitis with Acute on chronic OM, with Bacteremia ( Strep ) - Admitted to med/surg for resolving sepsis - Dr. Magallanes on consultation- reports that it is ok for the patient to be switched to Rocephin 2 grams IVPB daily x 6 weeks. He will need to come to the hospital daily for infuction x 6 weeks. -ECHO : no vegetation - MRI of the right foot: evidence of cellulitis and osteomyelitis - Follow up repeat BCX negative q 48 hours - Podiatry, Dr. Davies- will continue to see while in house, no surgical intervention planned at this time - Discharge tomorrow to home after antibiotics and PICC placement DM type 2 - Continue insulin regimen - Dr. Cee on consultation Hypomagnesemia - 1.6 - Given 2 grams magnesium IV - Repeat Mag level in AM DVT prophylaxis - Lovenox
[2017-10-11] MEDS: cefTRIAXone 2 GM in Sodium Chloride 0.9% 100 ML IVPB SCH (16:50)
[2017-10-11] MEDS: Insulin NPH Human 100 Units/ml Inj SC SCH (22:34)
[2017-10-12 06:45] LABS: HEMOGLOBIN 11.2 g/dL (12.0-18.0); MEAN CELL VOLUME 84.8 fl (80.0-94.0); MEAN CORPUSCULAR HEMOGLOBIN 27.5 pg (27.0-31.0); MEAN CORPUSCULAR HGB CONC 32.4 g/dL (33.0-37.0); RBC 4.06 Mil/uL (4.40-5.90); RED CELL DISTRIBUTION WIDTH 13.5 % (11.5-14.5); WHITE BLOOD COUNT 7.2 K/uL (4.8-10.8)
[2017-10-12 07:00] LABS: BLOOD UREA NITROGEN 19 mg/dl (9-20); CALCIUM 9.5 mg/dL (8.4-10.2); GFR AFRICAN-AMERICAN > 60; GFR NON-AFRICAN AMERICAN > 60
[2017-10-12] MEDS: Insulin Regular 100 units/ml SC SCH ×3 (07:30→12:51)
[2017-10-12 08:36] VITALS: O2SAT 98
--- NOTE | 2017-10-12 09:37 | CP.PCM.PN ---
Subjective - Date & Time of Evaluation Date of Evaluation: 10/12/17 Time of Evaluation: 09:35 - Subjective Subjective: 42 year old male seen at bedside for left foot ulceration at level of sub-third metatarsal head with underlying OM. Patient states that the pain in his foot is well controlled Is AAO x 3 at time of visit resting comfortably in bed at time of visit. Denies any further pedal complaints at this time. Denies any recent N/ V/F/C/CP/SOB/D/posterior calf pain when squeezed. Objective - Vital Signs/Intake and Output Vital Signs (last 24 hours): Temp Pulse Resp BP Pulse Ox 97.7 F 84 20 108/71 98 10/12/17 08:36 10/12/17 08:36 10/12/17 08:36 10/12/17 08:36 10/12/17 08:36 - Medications Medications: Current Medications Acetaminophen (Tylenol 325mg Tab) 650 mg PO Q4 PRN PRN Reason: Fever >100.4 F Last Admin: 10/08/17 16:43 Dose: 650 mg Acetaminophen (Tylenol 325mg Tab) 650 mg PO Q6 PRN PRN Reason: Headache Last Admin: 10/09/17 08:30 Dose: 650 mg Bacitracin (Bacitracin Oint) 1 applic TOP ONCE [facility] Dextrose (Dextrose 50% Inj) 0 ml IV STAT PRN; Protocol PRN Reason: Hypoglycemia Protocol Dextrose (Glutose 15) 0 gm PO ONCE PRN; Protocol PRN Reason: Hypoglycemia Protocol Glucagon (Glucagen Diagnostic Kit) 0 mg IM STAT PRN; Protocol PRN Reason: Hypoglycemia Protocol Ceftriaxone Sodium 2 gm/ (Sodium Chloride) 100 mls @ 100 mls/hr IVPB DAILY [facility] PRN Reason: Protocol Last Admin: 10/11/17 16:50 Dose: 100 mls/hr Insulin Human NPH (Humulin N) 22 units SC HS [facility] Last Admin: 10/11/17 22:34 Dose: 22 units Insulin Human Regular (Humulin R) 0 units SC ACHS [facility] Last Admin: 10/12/17 07:30 Dose: Not Given Insulin Human Regular (Humulin R) 14 units SC ACB [facility] Last Admin: 10/11/17 08:28 Dose: 14 units Insulin Human Regular (Humulin R) 16 units SC ACD [facility] Last Admin: 02/04/18 16:49 Dose: 16 units Phenylephrine HCl ([place]win-Synephrine 0.25% Nasal [place]) 1 spry ANNIE Q4 PRN PRN Reason: Nasal congestion Sodium Chloride ([place] Nasal [place]) 2 sprays ANNIE Q4 PRN PRN Reason: Nasal congestion - Labs Labs: 10/12/17 06:10 10/12/17 06:10 PT 11.9 Seconds (9.8-13.1) 10/07/17 15:30 INR 1.1 (0.9-1.2) 10/07/17 15:30 APTT 27.5 Seconds (25.6-37.1) 10/07/17 15:30 - Constitutional Appears: Well, Non-toxic, No Acute Distress - Extremities Exam Additional comments: LE focused exam: Omer/green strikethrough noted to patient's dressings on left foot Vasc: DP and PT faintly palpable, temperature gradient warm to cool, no edema noted, CFT delayed to digits Ortho: tenderness with palpation to the ulceration site, MM is 4/5 in all four compartments in dorsiflexion, plantarflexion, inversion and eversion Neuro: Epicritic and protective sensation grossly intact b/l Derm: ulceration noted to left foot a sub met 3 measuring approximately 1.5 x 1 cm x .4 cm. Ulceration wound base is mixture of granular and fibrotic tissue with intact hyperkeratotic rim, circumferential undermining noted. No purulent drainage or malodor noted at this time. Periwound is hyperkeratotic and callused ; no tunneling or tracking appreciated; no fluctanance noted. - Neurological Exam Neurological Exam: Alert, Awake, Oriented x3 - Psychiatric Exam Psychiatric exam: Normal Affect, Normal Mood Assessment and Plan - Assessment and Plan (Free Text) Assessment: 42 year old male seen at bedside for infected plantar left foot ulceration with underlying OM of third proximal phalanx Plan: Patient seen and evaluated at bedside Plan discussed with attending Dr. Davies Patient to receive PICC line today and receive Rocephin 2 g daily as outpatient for management of OM MRI: OM third proximal phalanx base and mid portion Wound cx: Beta hemolytic strep group B No plan for surgical intervention at this time Podiatry will continue to follow while patient in house Patient will f/u with Dr. Davies in wound care center as outpatient
[2017-10-12] MEDS: cefTRIAXone 2 GM in Sodium Chloride 0.9% 100 ML IVPB SCH (09:39)
--- NOTE | 2017-10-12 09:46 | CP.PCM.DIS ---
Provider - Provider Date of Admission: 10/07/17 16:48 Attending physician: Elizabeth Brown MD Consults: Podiatry - Dr. Yi Infectious Disease- Dr. Magallaens Endocrinology- Dr. 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 (3) Hypomagnesemia Status: Resolved (4) DKA (diabetic ketoacidosis) Status: Resolved Hospital Course - Lab Results Lab Results: Micro Results 10/09/17 08:05 Blood Blood Culture - Preliminary NO GROWTH AFTER 3 DAYS 10/09/17 07:58 Blood Blood Culture - Preliminary NO GROWTH AFTER 3 DAYS 10/07/17 15:30 Blood Blood Culture - Preliminary NO GROWTH AFTER 4 DAYS 10/07/17 15:30 Blood S.aureus & Coag-Neg Staph PNA FISH - Final 10/07/17 15:30 Blood Blood Culture - Final Beta Hemolytic Strep Group B 10/07/17 15:30 Blood Gram Stain - Final 10/07/17 20:45 Nose MRSA Culture (Admit) - Final MRSA NOT DETECTED 10/07/17 17:30 Urine Urine Culture - Final No Growth (<1,000 CFU/ML) 10/07/17 15:30 Foot - Left Gram Stain - Final 10/07/17 15:30 Foot - Left Wound Culture - Final Beta Hemolytic Strep Group B Most Recent Lab Values WBC 7.2 K/uL (4.8-10.8) 10/12/17 06:10 RBC 4.06 Mil/uL (4.40-5.90) L 10/12/17 06:10 Hgb 11.2 g/dL (12.0-18.0) L 10/12/17 06:10 Hct 34.4 % (35.0-51.0) L 10/12/17 06:10 MCV 84.8 fl (80.0-94.0) 10/12/17 06:10 MCH 27.5 pg (27.0-31.0) 10/12/17 06:10 MCHC 32.4 g/dL (33.0-37.0) L 10/12/17 06:10 RDW 13.5 % (11.5-14.5) 10/12/17 06:10 Plt Count 235 K/uL (130-400) 10/12/17 06:10 MPV 9.7 fl (7.2-11.7) 10/07/17 15:30 Neut % (Auto) 91.8 % (50.0-75.0) H 10/07/17 15:30 Lymph % (Auto) 1.9 % (20.0-40.0) L 10/07/17 15:30 [place] % (Auto) 6.0 % (0.0-10.0) 10/07/17 15:30 Eos % (Auto) 0.0 % (0.0-4.0) 10/07/17 15:30 Baso % (Auto) 0.3 % (0.0-2.0) 10/07/17 15:30 Neut # (Auto) 13.1 K/uL (1.8-7.0) H 10/07/17 15:30 Lymph # (Auto) 0.3 K/uL (1.0-4.3) L 10/07/17 15:30 [place] # (Auto) 0.9 K/uL (0.0-0.8) H 10/07/17 15:30 Eos # (Auto) 0.0 K/uL (0.0-0.7) 10/07/17 15:30 Baso # (Auto) 0.0 K/uL (0.0-0.2) 10/07/17 15:30 Neutrophils % (Manual) 80 % (42-75) H 10/07/17 15:30 Band Neutrophils % 4 % (0-2) H 10/07/17 15:30 Lymphocytes % (Manual) 6 % (20-50) L 10/07/17 15:30 Monocytes % (Manual) 9 % (0-10) 10/07/17 15:30 Basophils % (Manual) 1 % (0-2) 10/07/17 15:30 Platelet Estimate Normal (NORMAL) 10/07/17 15:30 Hypochromasia (manual) Slight 10/07/17 15:30 Anisocytosis (manual) Slight 10/07/17 15:30 Microcytosis (manual) Slight 10/07/17 15:30 ESR 38 mm/hr (0-15) H 10/07/17 15:30 PT 11.9 Seconds (9.8-13.1) 10/07/17 15:30 INR 1.1 (0.9-1.2) 10/07/17 15:30 APTT 27.5 Seconds (25.6-37.1) 10/07/17 15:30 pCO2 31 mm/Hg (35-45) L 10/07/17 16:28 pO2 89 mm/Hg (80-100) 10/07/17 16:28 HCO3 17.1 mmol/L (21-28) L 10/07/17 16:28 ABG pH 7.30 (7.35-7.45) L 10/07/17 16:28 ABG Total CO2 16.3 mmol/L (22-28) L 10/07/17 16:28 ABG O2 Saturation 98.6 % (95-98) H 10/07/17 16:28 ABG O2 Content 14.8 ML/dL (15-23) L 10/07/17 16:28 ABG Base Excess -10.0 mmol/L (-2.0-3.0) L 10/07/17 16:28 ABG Hemoglobin 11.1 g/dL (11.7-17.4) L 10/07/17 16:28 ABG Carboxyhemoglobin 1.2 % (0.5-1.5) 10/07/17 16:28 POC ABG HHb (Measured) 1.3 % (0.0-5.0) 10/07/17 16:28 ABG Methemoglobin 3.5 % (0.0-3.0) H 10/07/17 16:28 ABG O2 Capacity 15.0 mL/dL (16-24) L 10/07/17 16:28 Rony Test Yes 10/07/17 16:28 VBG pH 7.29 (7.32-7.43) L 10/07/17 15:50 VBG pCO2 31 mmHg (40-60) L 10/07/17 15:50 VBG HCO3 16.5 mmol/L 10/07/17 15:50 VBG Total CO2 15.9 mmol/L (22-28) L 10/07/17 15:50 VBG O2 Sat (Calc) 95.2 % (40-65) H 10/07/17 15:50 VBG Base Excess -10.4 mmol/L (0.0-2.0) L 10/07/17 15:50 VBG Potassium 4.1 mmol/L (3.6-5.2) 10/07/17 15:50 A-a O2 Difference 22.0 mm/Hg 10/07/17 16:28 Hgb O2 Saturation 94.0 % (95.0-98.0) L 10/07/17 16:28 Sodium 129.0 mmol/L (132-148) L 10/07/17 15:50 Chloride 93.0 mmol/L (98-107) L 10/07/17 15:50 Glucose 380 mg/dL (75-110) H 10/07/17 15:50 Lactate 1.1 mmol/L (0.7-2.1) 10/07/17 15:50 FiO2 21.0 % 10/07/17 16:28 Sodium 142 mmol/l (132-148) 10/12/17 06:10 Potassium 4.5 MMOL/L (3.6-5.0) 10/12/17 06:10 Chloride 101 mmol/L (98-107) 10/12/17 06:10 Carbon Dioxide 34 mmol/L (22-30) H 10/12/17 06:10 Anion Gap 12 (10-20) 10/12/17 06:10 BUN 19 mg/dl (9-20) 10/12/17 06:10 Creatinine 1.1 mg/dl (0.8-1.5) 10/12/17 06:10 Est GFR ( Amer) > 60 10/12/17 06:10 Est GFR (Non-Af Amer) > 60 10/12/17 06:10 POC Glucose (mg/dL) 130 mg/dL (65-110) H 10/12/17 05:22 Random Glucose 167 mg/dL (75-110) H 10/12/17 06:10 Hemoglobin A1c 14.1 % (4.2-6.5) H 10/08/17 05:00 Lactic Acid 1.0 MMOL/L (0.7-2.1) 10/07/17 20:54 Calcium 9.5 mg/dL (8.4-10.2) 10/12/17 06:10 Phosphorus 2.0 mg/dl (2.5-4.5) L 10/08/17 05:00 Magnesium 2.0 MG/DL (1.6-2.3) 10/12/17 06:10 Total Bilirubin 0.3 mg/dl (0.2-1.3) 10/08/17 05:00 AST 31 U/L (17-59) 10/08/17 05:00 ALT 33 U/L (21-72) 10/08/17 05:00 Alkaline Phosphatase 58 U/L (38-126) 10/08/17 05:00 Total Protein 5.6 G/DL (6.3-8.2) L 10/08/17 05:00 Albumin 2.6 g/dL (3.5-5.0) L D 10/08/17 05:00 Globulin 3.0 gm/dL (2.2-3.9) 10/08/17 05:00 Albumin/Globulin Ratio 0.9 (1.0-2.1) L 10/08/17 05:00 Triglycerides 54 mg/DL (0-149) 10/08/17 05:00 Cholesterol 146 mg/dL (0-199) 10/08/17 05:00 LDL Cholesterol Direct 95 mg/dL (0-129) 10/08/17 05:00 HDL Cholesterol 38 MG/DL (30-70) 10/08/17 05:00 Lipase 41 U/L (23-300) 10/07/17 15:30 Procalcitonin 7.20 NG/ML (0.19-0.49) H 10/07/17 20:54 Venous Blood Potassium 4.1 mmol/L (3.6-5.2) 10/07/17 15:50 Urine Color Yellow (YELLOW) 10/07/17 17:30 Urine Clarity Clear (Clear) 10/07/17 17:30 Urine pH 6.0 (5.0-8.0) 10/07/17 17:30 Ur Specific [place] 1.020 (1.003-1.030) 10/07/17 17:30 Urine Protein 100 mg/dL (NEGATIVE) 10/07/17 17:30 Urine Glucose (UA) >=500 mg/dL (Normal) 10/07/17 17:30 Urine Ketones 80 mg/dL (NEGATIVE) 10/07/17 17:30 Urine Blood Small (NEGATIVE) 10/07/17 17:30 Urine Nitrate Negative (NEGATIVE) 10/07/17 17:30 Urine Bilirubin Negative (NEGATIVE) 10/07/17 17:30 Urine Urobilinogen 0.2-1.0 mg/dL (0.2-1.0) 10/07/17 17:30 Ur Leukocyte Esterase Neg Sj/uL (Negative) 10/07/17 17:30 Urine RBC (Auto) 6 /hpf (0-3) H 10/07/17 17:30 Urine Microscopic WBC < 1 /hpf (0-5) 10/07/17 17:30 Urine Opiates Screen Negative (NEGATIVE) 10/08/17 01:15 Urine Methadone Screen Negative (NEGATIVE) 10/08/17 01:15 Ur Barbiturates Screen Negative (NEGATIVE) 10/08/17 01:15 Ur Phencyclidine Scrn Negative (NEGATIVE) 10/08/17 01:15 Ur Amphetamines Screen Negative (NEGATIVE) 10/08/17 01:15 U Benzodiazepines Scrn Negative (NEGATIVE) 10/08/17 01:15 U Oth Cocaine Metabols Negative (NEGATIVE) 10/08/17 01:15 U Cannabinoids Screen Negative (NEGATIVE) 10/08/17 01:15 Influenza Typ A,B (EIA) Negative for flu a/b (NEGATIVE) 10/07/17 15:30 Blood Type O POSITIVE 10/07/17 15:30 Antibody Screen Negative 10/07/17 15:30 BBK History Checked Patient has bt 10/07/17 15:30 - Hospital Course Hospital Course: 42 y.o male with PMH of DM admitted for DKA and sepsis. DKA treated with IVF hydration and electrolytes replacement and DKA resolved. During hospital stay, patient was found to be sepsis with bacteremia secondary to left foot ulceration cellulitis with acute on chronic OM. MRI-OM third proximal phalanx base and mid portion. Podiatry will treat conservatively with abx with no surgical intervention at this time. Infectious disease Dr. Magallanes consulted and for patient to be treated with 6 weeks of IV Rocephin. ECHO was taken and showed no vegetation. Patient is hemodynamically stable, afebrile and absent leukocytosis, repeat blood cultures x2 negative in which sepsis is resolved and decision was made to discharge patient home. Patient will receive 6 weeks of IV abx in the infusion center daily via PICC line for treatment of OM. Patient will followup with PCP to manage diabetes. Endocrinology consulted. Insulin Human Regular 14 units SC ACB TASHA and Insulin Human Regular 10 units SC ACD TASHA added to diabetic management regimen. Discharge Exam - Head Exam Head Exam: ATRAUMATIC, NORMAL INSPECTION, NORMOCEPHALIC - Eye Exam Eye Exam: EOMI, Normal appearance, PERRL Pupil Exam: NORMAL ACCOMODATION, PERRL - ENT Exam ENT Exam: Mucous Membranes Moist - Respiratory Exam Respiratory Exam: Clear to PA & Lateral, NORMAL BREATHING PATTERN, UNREMARKABLE. absent: Rales, Rhonchi, Wheezes, Respiratory Distress, Stridor - Cardiovascular Exam Cardiovascular Exam: REGULAR RHYTHM, +S1, +S2. absent: JVD - GI/Abdominal Exam GI & Abdominal Exam: Normal Bowel Sounds, Unremarkable - Extremities Exam Additional comments: Dressing to the lower extremity is c/d/i without strikethrough noted Surgical shoe in place - Neurological Exam Neurological exam: Alert, Oriented x3 - Psychiatric Exam Psychiatric exam: Normal Affect, Normal Mood - Skin Skin Exam: Normal Color, Warm Discharge Plan - Discharge Medications Prescriptions: Insulin Regular [HumuLIN R] 14 units SC ACB #1 vial Insulin Human NPH [Humulin N] 22 units SC HS #1 vial - Follow Up Plan Condition: FAIR Disposition: HOME/ ROUTINE Instructions: Osteomyelitis (DC), Diabetes Mellitus Type 2 in Adults (DC), Peripherally Inserted Central Catheters and Midline Catheters (DC), Diabetic Foot Ulcers (DC) Additional Instructions: Rx for Rocephin 2g IV daily for 6 weeks Rx for BMP weekly Rx for PICC line removal after IV abx treatment follow up in wound care with Dr. Yi within in 1 week follow up with primary MD Patient will get infusion in the hospital daily as outpatient E prescribe: Insulin Regular [HumuLIN R] 14 units SC ACB #1 vial Insulin Human NPH [Humulin N] 22 units SC HS #1 vial Referrals: Libra Cee MD [Medical Doctor] - Dario Yi DPM [Staff Provider] - Greg Magallanes MD [Staff Provider] -
[2017-10-12] MEDS ORDERED: Lidocaine 1% Inj (20ml) ONE (10:16)
[2017-10-12 10:38] VITALS: BP 114/73; PULSE 87; RESP 18; TEMP 97.3
--- NOTE | 2017-10-12 10:45 | PCM.SURG1 ---
Surgeon's Initial Post Op Note - Surgeon's Notes Surgeon: Patrick Peck MD Douper: None Type of Anesthesia: Local Pre-Operative Diagnosis: wound infection Operative Findings: patent right basilic vein. catheter length: 36 cm. catheter tip: cavoatrial junction Post-Operative Diagnosis: same Operation Performed: RUE PICC Insertion Specimen/Specimens Removed: n/a Estimated Blood Loss: EBL {In ML}: 0 Date of Surgery/Procedure: 10/12/17 Time of Surgery/Procedure: 10:35
--- NOTE | 2017-10-12 12:43 | VASCULAR ---
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 COMPARISON: Left PICC insertion performed 03/31/2012 PROCEDURE: 1. Focused ultrasound of the right upper extremity vasculature. 2. Ultrasound-guided access. 3. Insertion of peripherally inserted central venous catheter. 4. Fluoroscopic localization of catheter tip. PRE-PROCEDURE FINDINGS: 1. Patent right basilic vein. POST-PROCEDURE FINDINGS: 1. Placement of 4 [place] single-lumen PICC. 2. Catheter length: 36 cm. 3. Catheter tip at cavoatrial junction. INTERVENTIONAL RADIOLOGIST: Patrick Peck M.D. (the attending was present for the entire procedure) ANESTHESIA: None. MEDICATION: Lidocaine 1% for local subcutaneous analgesia. COMPLICATIONS: None. RADIATION DOSE: Fluoroscopy Time: 6.9 seconds Cumulative Dose: 0.67 mGy PROCEDURE DESCRIPTION AND FINDINGS: The risks, benefits, alternatives and possible complications of the procedure were fully discussed; all questions were answered and informed consent was obtained. The patient was brought into the interventional suite and a pre-procedure 'time-out' was performed. The patient was placed on the fluoroscopy table in the supine position. The right upper extremity was prepped and draped in the usual sterile fashion. Maximum sterile barrier precautions were maintained throughout the entire procedure. Preliminary ultrasound images of the right upper extremity vasculature demonstrate patency of the right basilic vein. Following subcutaneous infiltration of 1% lidocaine for local analgesia, under ultrasound guidance, a 21-gauge needle was advanced into the right basilic vein with real-time visualization of needle entry. The ultrasound images were permanently recorded and submitted to the PACS. A 0.018 guidewire was advanced centrally to the cavoatrial junction. A 4.5 [place] peel-away sheath was advanced over the guidewire. After obtaining length measurement, a 4 [place] single-lumen PICC was placed with the tip of the catheter at the cavoatrial junction. The total length of the catheter is 36 cm. The hub of the PICC was secured to the skin using a sterile adhesive bandage. The patient tolerated the procedure well without immediate post-procedure complications and was transferred back to the floor in stable condition. IMPRESSION: SUCCESSFUL INSERTION OF RIGHT UPPER EXTREMITY PICC. PICC OK TO USE.
== END 2017-10-12 14:36 | disposition home or self-care (01) | DRG 871 ==
LOC: H.ER 14:44 → H.ERHOLD 16:48 → H.ICU/CCU 19:35 → H.MEDSURG1 10-08 16:15
PROVIDERS: ADMIT Internal Medicine; ATTEND Internal Medicine
PROC: 02HV33Z Insertion of Infusion Device into Superior Vena Cava, Percutaneous Approach (ICD-10-PCS; principal; 2017-10-11)
PROC: B518ZZA Fluoroscopy of Superior Vena Cava, Guidance (ICD-10-PCS; 2017-10-11)
PROC: B548ZZA Ultrasonography of Superior Vena Cava, Guidance (ICD-10-PCS; 2017-10-11)
DX: A41.9 Sepsis, unspecified organism (principal); E11.10 Type 2 diabetes mellitus with ketoacidosis without coma; E11.42 Type 2 diabetes mellitus with diabetic polyneuropathy; M86.172 Other acute osteomyelitis, left ankle and foot; M86.672 Other chronic osteomyelitis, left ankle and foot; L03.116 Cellulitis of left lower limb; E11.621 Type 2 diabetes mellitus with foot ulcer; E11.628 Type 2 diabetes mellitus with other skin complications; E78.5 Hyperlipidemia, unspecified; E83.42 Hypomagnesemia; E86.0 Dehydration; F17.210 Nicotine dependence, cigarettes, uncomplicated; I10 Essential (primary) hypertension; E11.69 Type 2 diabetes mellitus with other specified complication; E11.65 Type 2 diabetes mellitus with hyperglycemia; Z79.4 Long term (current) use of insulin; Z82.49 Family history of ischemic heart disease and other diseases of the circulatory system; Z83.3 Family history of diabetes mellitus; Z89.429 Acquired absence of other toe(s), unspecified side; Z91.19 Patient's noncompliance with other medical treatment and regimen; Z79.84 Long term (current) use of oral hypoglycemic drugs; R79.89 Other specified abnormal findings of blood chemistry